=== PATIENT | male | born 1945 | race Caucasian/White ===

== ENCOUNTER 2016-07-09 14:39 | Observation (INO) | payer OTHER ==
[2016-07-09] MEDS ORDERED: SODIUM CHLORIDE 500 ML IV STA (15:40)
--- NOTE | 2016-07-09 15:46 | PDOC ---
History of Present Illness - General History Source: Patient, Family - History of Present Illness Timing/Duration: other Associated Symptoms: reports: cough, weakness. denies: chest pain, fever/chills , headaches, nausea/vomiting, shortness of breath, syncope <JeremyRebecca - Last Filed: 07/09/16 18:42> <Darshana Monson - Last Filed: 07/12/16 11:07> - General Chief Complaint: Shortness of Breath Stated Complaint: DIFFICULTY BREATHING/FAINTED Time Seen by Provider: 07/09/16 15:08 Past History - Past Medical History Other medical history: GLAUCOMA - Psycho/Social/Smoking Cessation Hx Anxiety: No Suicidal Ideation: No Smoking History: Former smoker Have you smoked in the past 12 months: No Number of Cigarettes Smoked Daily: 7 Information on smoking cessation initiated: No 'Breaking Loose' booklet given: 06/29/13 Hx Alcohol Use: No Drug/Substance Use Hx: No Substance Use Type: None <LeesvilleRebecca - Last Filed: 07/09/16 18:42> <Darshana Monson - Last Filed: 07/12/16 11:07> - Past Medical History Allergies/Adverse Reactions: Allergies Allergy/AdvReac Type Severity Reaction Status Date / Time No Known Allergies Allergy Verified 07/09/16 14:46 Home Medications: Ambulatory Orders Latanoprost 0.005% Eye Drops [Xalatan 0.005% Eye Drops -] 1 drop OU HS #0 drops 07/02/13 Review of Systems - Review of Systems Constitutional: No: Chills, Fever Respiratory: Yes: Cough. No: Shortness of Breath, Wheezing Cardiac (ROS): No: Chest Pain, Lightheadedness, Palpitations ABD/GI: No: Diarrhea, Nausea, Vomiting : No: Dysuria <JeremyKaylinTutu - Last Filed: 07/09/16 18:42> *Physical Exam - Vital Signs Last Vital Signs Temp Pulse Resp BP Pulse Ox 98.7 F 110 H 18 172/100 97 07/09/16 14:42 07/09/16 14:42 07/09/16 14:42 07/09/16 14:42 07/09/16 14:42 - Physical Exam General Appearance: Yes: Appropriately Dressed. No: Apparent Distress HEENT: positive: Normal Voice. negative: Scleral Icterus (R), Scleral Icterus ( L) Neck: positive: Supple Respiratory/Chest: positive: Lungs Clear, Normal Breath Sounds. negative: Respiratory Distress Cardiovascular: positive: Regular Rate, S1, S2 Gastrointestinal/Abdominal: positive: Soft. negative: Tender Integumentary: positive: Dry, Warm Neurologic: positive: Fully Oriented, Alert, Normal Mood/Affect, Motor Strength 5/5, Finger to Nose. negative: Facial Droop, Sensory Deficit (no nystagmus, Karthikeyan intact, no drift, no ataxia), Confused, Disoriented <Rebecca Luna - Last Filed: 07/09/16 18:42> - Vital Signs Last Vital Signs Temp Pulse Resp BP Pulse Ox 99.7 F H 95 H 16 123/54 98 07/10/16 05:59 07/10/16 09:00 07/10/16 09:00 07/10/16 09:00 07/10/16 09:00 <Darshana Monson - Last Filed: 07/12/16 11:07> ED Treatment Course - LABORATORY CBC & Chemistry Diagram: 07/09/16 16:25 07/09/16 16:25 - RADIOLOGY Radiology Studies Ordered: Category Date Time Status CHEST X-RAY PORTABLE* [RAD] Stat Radiology 07/09/16 15:11 Ordered <JeremyRebecca - Last Filed: 07/09/16 18:42> - LABORATORY CBC & Chemistry Diagram: 07/10/16 07:20 07/10/16 07:20 - ADDITIONAL ORDERS Additional order review: 07/09/16 16:32 Influenza Types A,B Antigen (CAROL) - Final Nasopharyngeal Swab - Final 07/09/16 16:25 RBC 4.65 MCV 86.4 MCHC 33.4 RDW 13.9 MPV 6.9 L D Neutrophils % 85.2 H Lymphocytes % 5.5 L D Monocytes % 8.5 Eosinophils % 0.3 D Basophils % 0.5 - Medications Given in the ED: ED Medications Discontinued Medications Generic Name Dose Route Start Last Admin Trade Name Freq PRN Reason Stop Dose Admin Sodium Chloride 500 mls @ 1,000 mls/hr 07/09/16 15:40 07/09/16 16:28 Normal Saline - IV 07/09/16 16:09 1,000 mls/hr ASDIR STA Administration Sodium Chloride 1,000 mls @ 75 mls/hr 07/09/16 21:30 07/09/16 21:46 Normal Saline - IV 75 mls/hr ASDIR GILBERTO Administration <Darshana Monson - Last Filed: 07/12/16 11:07> Medical Decision Making - Medical Decision Making 07/09/16 15:41 71 yo M, former smoker, ?COPD, BIB daughter for b/l LE weakness w/ near fall today. Pt report having " a cold" for the past several days and this afternoon while standing, states his legs felt profoundly weak causing him to fall towards the ground but was caught by family member. No dizziness or CP prior to episode. States his legs continue to feel weak. No VILLARREAL, slurred speech, visual changes or focal weakness. +cough, no sob, wheezing, abd pain, diarrhea, n/v/f/ c. See exam URI w/ weakness Possibly viral syndrome Tachy and hypertensive in ED w/ unremarkable exam otherwise -labs including influenza -IVF -reassess 07/09/16 15:46 07/09/16 17:22 TWI in leads V5-V6, new compared to EKG 06/2013. Trop pending. Doubt sxs cardiac in nature as pt has no cardiac or resp sxs 07/09/16 18:37 Labs and cxr unremarkable. Upon reassessment, patient continues to complain of profound bilateral lower extremity weakness when attempts to ambulate in ED. Strength, however, intact on exam and non-focal. Unclear etiology of sxs but unable to discharge at this time. Will discuss w/ hospitalist and m/l admit to obs. 07/09/16 18:39 <Rebecca Luna - Last Filed: 07/09/16 18:42> *DC/Admit/Observation/Transfer <Rebecca Luna - Last Filed: 07/09/16 18:42> - Attestations Physician Attestion: I reviewed the case with the mid-level practitioner and agree with the mid- level practitioner's assessment, diagnosis and disposition. <Darshana Monson - Last Filed: 07/12/16 11:07> Diagnosis at time of Disposition: Lower extremity weakness Qualifiers: Laterality: bilateral Qualified Code(s): R29.898 - Other symptoms and signs involving the musculoskeletal system - Discharge Dispostion Disposition: HOME Condition at time of disposition: Improved
[2016-07-09 16:33] LABS: BASOPHIL 0.5 % (0-2.0); EOSINOPHIL 0.3 % (0-4.5); MCH 28.9 pg (25.7-33.7); MCHC 33.4 g/dl (32.0-35.9); MEAN CELL VOLUME 86.4 fl (80-96); MEAN PLT VOLUME 6.9 fl (7.5-11.1); NEUTROPHILS 85.2 % (42.8-82.8); PLATELET COUNT 212 K/MM3 (134-434); RDW 13.9 % (11.9-15.9); WHITE BLOOD COUNT 11.2 K/mm3 (4.0-10.0)
[2016-07-09 16:43] LABS: URINE APPEARANCE CLEAR; URINE BILIRUBIN NEGATIVE (NEGATIVE); URINE BLOOD NEGATIVE (NEGATIVE); URINE COLOR LTYELLOW; URINE GLUCOSE (UA) NEGATIVE (NEGATIVE); URINE KETONE NEGATIVE (NEGATIVE); URINE LEUK ESTERASE NEGATIVE (NEGATIVE); URINE NITRITE NEGATIVE (NEGATIVE); URINE PROTEIN NEGATIVE (NEGATIVE); URINE UROBILINOGEN NEGATIVE E.U./dl (0.2-1.0)
[2016-07-09 17:25] LABS: ALBUMIN 3.7 g/dl (3.4-5.0); ANION GAP 11 (8-16); BILIRUBIN,TOTAL 0.7 mg/dL (0.2-1.0); CALCIUM 8.8 mg/dL (8.5-10.1); CO2 25 mmol/L (21-32); COCKROFT - GAULT 59.77; CREATININE 1.2 mg/dL (0.7-1.3); GLUCOSE,RANDOM 114 mg/dL (74-106); SGOT/AST 97 U/L (15-37); SGPT/ALT 78 U/L (12-78); TOT PROT 7.5 g/dl (6.4-8.2)
[2016-07-09 17:27] LABS: ALK PHOS 128 U/L (45-117); TROPONIN I < 0.02 ng/ml (0.00-0.05)
--- NOTE | 2016-07-09 19:23 | PDOC ---
*Physical Exam - Vital Signs Last Vital Signs Temp Pulse Resp BP Pulse Ox 98.7 F 87 17 132/58 96 07/09/16 14:42 07/09/16 17:39 07/09/16 17:39 07/09/16 17:39 07/09/16 17:39 ED Treatment Course - LABORATORY CBC & Chemistry Diagram: 07/09/16 16:25 07/09/16 16:25 - ADDITIONAL ORDERS Additional order review: Laboratory Results 07/09/16 07/09/16 16:32 16:25 Sodium 137 Potassium 5.2 H D Chloride 101 Carbon Dioxide 25 Anion Gap 11 BUN 18 D Creatinine 1.2 D Creat Clearance w eGFR 59.68 Random Glucose 114 H D Calcium 8.8 Total Bilirubin 0.7 D AST 97 H D ALT 78 D Alkaline Phosphatase 128 H D Creatine Kinase 135 Troponin I < 0.02 Total Protein 7.5 D Albumin 3.7 Urine Color Ltyellow Urine Appearance Clear Urine pH 7.0 Ur Specific [place] 1.012 Urine Protein Negative Urine Glucose (UA) Negative Urine Ketones Negative Urine Blood Negative Urine Nitrite Negative Urine Bilirubin Negative Urine Urobilinogen Negative Ur Leukocyte Esterase Negative 07/09/16 16:32 Influenza Types A,B Antigen (CAROL) - Final Nasopharyngeal Swab - Final 07/09/16 16:25 RBC 4.65 MCV 86.4 MCHC 33.4 RDW 13.9 MPV 6.9 L D Neutrophils % 85.2 H Lymphocytes % 5.5 L D Monocytes % 8.5 Eosinophils % 0.3 D Basophils % 0.5 - Medications Given in the ED: ED Medications Discontinued Medications Generic Name Dose Route Start Last Admin Trade Name Remingtonq PRN Reason Stop Dose Admin Sodium Chloride 500 mls @ 1,000 mls/hr 07/09/16 15:40 07/09/16 16:28 Normal Saline - IV 07/09/16 16:09 1,000 mls/hr ASDIR STA Administration *DC/Admit/Observation/Transfer Diagnosis at time of Disposition: Lower extremity weakness Qualifiers: Laterality: bilateral Qualified Code(s): R29.898 - Other symptoms and signs involving the musculoskeletal system - Discharge Dispostion Condition at time of disposition: Stable Admit: Yes
--- NOTE | 2016-07-09 19:39 | PN ---
<Carlton Daigle - Last Filed: 07/09/16 19:38> Teaching Attending Note Name of Resident: Samira Painter ATTENDING PHYSICIAN STATEMENT I saw and evaluated the patient. I reviewed the resident's note and discussed the case with the resident. I agree with the resident's findings and plan as documented. SUBJECTIVE: OBJECTIVE: ASSESSMENT AND PLAN: <JuiceeanAlban - Last Filed: 07/09/16 21:18> Teaching Attending Note ATTENDING PHYSICIAN STATEMENT I saw and evaluated the patient. I reviewed the resident's note and discussed the case with the resident. I agree with the resident's findings and plan as documented. Imaging data and chart reviewed. SUBJECTIVE: 71 year old male, former smoker, COPD, BIB daughter for bilateral lower extremity weakness with near fall at 3 pm today. Patient reported and stated this afternoon his leg felt profoundly weak causing him to have difficulty walking. The patient denied any chest pressure or dizziness prior to episode. The patient reported subjective cold for several days with associated cough. He denied headache, slurred speech, visual changes, or focal weaknesses. He denied shortness of breath, wheezing, abdominal pain, diarrhea, nausea, vomiting , fever, and chills. OBJECTIVE: Vital Signs: Last Vital Signs Temp Pulse Resp BP Pulse Ox 98.7 F 87 17 132/58 96 07/09/16 14:42 07/09/16 17:39 07/09/16 17:39 07/09/16 17:39 07/09/16 17:39 Physical Exam: GENERAL: (+) Awake, alert, and fully oriented, in no acute distress. Missing teeth HEENT: Atraumatic. Dry mucosa. Normocephalic. No sinus tenderness. No LAD. NECK: (+) No JVD. No thyroid masses. Supple. Collapsed neck veins LUNGS: Clear to auscultation bilaterally. No wheezing, rhonchi or rales. HEART: Regular rate and rhythm, normal S1 and S2, no murmurs, rubs or gallops, peripheral pulses normal and equal bilaterally. ABDOMEN: Soft, nontender, normoactive bowel sounds. No guarding, no rebound. No Masses. MUSCULOSKELETAL: No joint tenderness or erythema. No muscle tenderness. Normal muscle bulk and tone. EXTREMITIES: (+) Normal inspection, No edema. No clubbing or cyanosis. Moves all extremities. webbed feet. NEUROLOGICAL: (+) Normal speech, no focal sensorimotor deficits. Lower extremities motor 5/5 bilaterally, patella reflexes 2+ bilaterally, sensation grossly intact, babinski negative bilaterally SKIN: (+) Warm, dry, poor turgor, no rashes or lesions noted. Labs: CBCD WBC 11.2 K/mm3 (4.0-10.0) H D 07/09/16 16:25 RBC 4.65 M/mm3 (4.00-5.60) 07/09/16 16:25 Hgb 13.4 GM/dL (11.7-16.9) 07/09/16 16:25 Hct 40.2 % (35.4-49) 07/09/16 16:25 MCV 86.4 fl (80-96) 07/09/16 16:25 MCHC 33.4 g/dl (32.0-35.9) 07/09/16 16:25 RDW 13.9 % (11.9-15.9) 07/09/16 16:25 Plt Count 212 K/MM3 (134-434) D 07/09/16 16:25 MPV 6.9 fl (7.5-11.1) L D 07/09/16 16:25 CMP Sodium 137 mmol/L (136-145) 07/09/16 16:25 Potassium 5.2 mmol/L (3.5-5.1) H D 07/09/16 16:25 Chloride 101 mmol/L (98-107) 07/09/16 16:25 Carbon Dioxide 25 mmol/L (21-32) 07/09/16 16:25 Anion Gap 11 (8-16) 07/09/16 16:25 BUN 18 mg/dL (7-18) D 07/09/16 16:25 Creatinine 1.2 mg/dL (0.7-1.3) D 07/09/16 16:25 Creat Clearance w eGFR 59.68 (>60) 07/09/16 16:25 Calcium 8.8 mg/dL (8.5-10.1) 07/09/16 16:25 Total Bilirubin 0.7 mg/dL (0.2-1.0) D 07/09/16 16:25 AST 97 U/L (15-37) H D 07/09/16 16:25 ALT 78 U/L (12-78) D 07/09/16 16:25 Alkaline Phosphatase 128 U/L (45-117) H D 07/09/16 16:25 Total Protein 7.5 g/dl (6.4-8.2) D 07/09/16 16:25 Albumin 3.7 g/dl (3.4-5.0) 07/09/16 16:25 Imaging: ECG Impression: Sinus rhythm. No acute ST or T wave changes. ASSESSMENT AND PLAN: 1. Bilateral leg weakness maybe secondary to hyperkalemia vs dehydration. - Observe - Fall precautions - AM gait assessment - Electrolyte correction - IVF hydration 2. RODO possibly secondary to dehydration. - Urine electrolytes - Renal sonogram - IVF hydration - Avoid nephrotoxic medications 3. Diet -2 g sodium diet 4. DVT PPX low risk for DVT -SCDs Admit to observation Documentation prepared by Alban Borges, acting as biomedical repair technician for Dr. Carlton Daigle MD.
--- NOTE | 2016-07-09 20:04 | HP ---
CHIEF COMPLAINT:lower extremity weakness, shortness of breath PCP: none HISTORY OF PRESENT ILLNESS: 71 yr old man with hx of enlarged prostate, glaucoma, former smoker presents after one episode of difficulty breathing and b/l lower extremity weakness this morning. At 3pm he was walking around his room, making his bed when he suddenly felt like he "couldn't get enough air" and was unable to stand due to leg weakness. He called out for his daughter who caught him before he hit the floor. Difficulty breathing, was not extertional, he felt like he had to breath through his mouth and at the time couldn't speak in full sentences. He normally does not have shortness of breath, walks 1-3miles daily without difficulty. Denies LOC, seizure-like activity, chest pain, lightheadedness, dizziness, palpitations, changes in vision, fever, lower extremity edema, history of fall, head trauma, bladder/bowel incontinence, neck stiffness, paresthesias. He has had a cold with non-productive cough for past week, this morning he woke up with his throat hurting. Daughter had given him dayquil x2 to help with symptoms, pt says uri symptoms are improving. Has not traveled outside of [place] in a "very long time," does not have a garden, denies being in a wooded area/tick bites, rashes. ER course was notable for: (1) EKG (2) K+ 5.6 (3) CXY Recent Travel: none PAST MEDICAL HISTORY: glaucoma Congenital Syndactyly b/l hands and feet PAST SURGICAL HISTORY: laser therapy for prostate 2003, several b/l hand surgery as infant to separate fingers Social History: independent with ADLs, lives with adult son and daughter Smoking: quit 4 yrs ago, smoked for 50 yrs 1/2pk/per day Alcohol:never Drugs: never Family History: mother had "heart condition" was on digoxin and nitroglycerin for many years, ID age 80 Allergies No Known Allergies Allergy (Verified 07/09/16 14:46) HOME MEDICATIONS: Home Medications Medication Instructions Recorded Latanoprost 0.005% Eye Drops 1 drop OU HS #0 drops 07/02/13 [Xalatan 0.005% Eye Drops -] REVIEW OF SYSTEMS CONSTITUTIONAL: Absent: fever, chills, diaphoresis, generalized weakness, malaise, loss of appetite, weight change HEENT: Present: throat pain, Absent: rhinorrhea, nasal congestion, throat swelling, difficulty swallowing, mouth swelling, ear pain, eye pain, visual changes CARDIOVASCULAR: Absent: chest pain, syncope, palpitations, irregular heart rate, lightheadedness , peripheral edema RESPIRATORY: Present:cough, Absent: shortness of breath, dyspnea with exertion, orthopnea, wheezing, stridor, hemoptysis GASTROINTESTINAL: Absent: abdominal pain, abdominal distension, nausea, vomiting, diarrhea, constipation, melena, hematochezia GENITOURINARY: Absent: dysuria, frequency, urgency, hesitancy, hematuria, flank pain, genital pain MUSCULOSKELETAL: Absent: myalgia, arthralgia, joint swelling, back pain, neck pain SKIN: Absent: rash, itching, pallor HEMATOLOGIC/IMMUNOLOGIC: Absent: easy bleeding, easy bruising, lymphadenopathy, frequent infections ENDOCRINE: Absent: unexplained weight gain, unexplained weight loss, heat intolerance, cold intolerance NEUROLOGIC: Present: unsteady gait Absent: headache, focal weakness or paresthesias, dizziness, seizure, mental status changes, bladder or bowel incontinence PSYCHIATRIC: Absent: anxiety, depression PHYSICAL EXAMINATION Vital Signs - 24 hr 07/09/16 07/09/16 14:42 17:39 Temperature 98.7 F Pulse Rate 110 H Pulse Rate [ 87 Left] Respiratory 18 17 Rate Blood Pressure 172/100 Blood Pressure 132/58 [Arm] O2 Sat by Pulse 97 96 Oximetry (%) GENERAL: thin, elderly man, Awake, alert, and fully oriented, in no acute distress. HEAD: Normal with no signs of trauma. EYES: Pupils equal, round and reactive to light, extraocular movements intact, sclera anicteric, conjunctiva clear. No lid lag. EARS, NOSE, THROAT: Ears normal, nares patent, oropharynx clear without exudates /erythema/lesions. dry mucous membranes. missing dentition. NECK: Normal range of motion, supple without lymphadenopathy, JVD, or masses. no carotid bruits LUNGS: Breath sounds equal, clear to auscultation bilaterally. No wheezes, and no crackles. No accessory muscle use. HEART: Regular rate and rhythm, normal S1 and S2 without murmur, rub or gallop. ABDOMEN: Soft, nontender, not distended, normoactive bowel sounds, no guarding, no rebound, no masses. MUSCULOSKELETAL: Normal range of motion at all joints. No tenderness. No CVA tenderness. congenital deformity of hands s/p surgery for syndactyly. b/l toes 2 -4 fused with overlying skin. UPPER EXTREMITIES: 2+ pulses, warm, well-perfused. No cyanosis. No clubbing. No peripheral edema. LOWER EXTREMITIES: 2+ pulses, warm, well-perfused. No calf tenderness. No peripheral edema. NEUROLOGICAL: Cranial nerves II-XII intact. Normal speech. Normal gait. facial symmetry. strength at shoulder/biceps/triceps/hand distribution collection operator 5/5, extension&flexion strength at hips/knees/ankle. gait stable, [id number] b/l wnl. knee jerk, brachioradialis reflexes intact. no dysdiadochokinesis PSYCHIATRIC: Cooperative. Good eye contact. Appropriate mood and affect. Laboratory Results - last 24 hr 07/09/16 07/09/16 07/09/16 16:25 16:25 16:32 WBC 11.2 H D RBC 4.65 Hgb 13.4 Hct 40.2 MCV 86.4 MCHC 33.4 RDW 13.9 Plt Count 212 D MPV 6.9 L D Neutrophils % 85.2 H Lymphocytes % 5.5 L D Monocytes % 8.5 Eosinophils % 0.3 D Basophils % 0.5 Sodium 137 Potassium 5.2 H D Chloride 101 Carbon Dioxide 25 Anion Gap 11 BUN 18 D Creatinine 1.2 D Creat Clearance w eGFR 59.68 Random Glucose 114 H D Calcium 8.8 Total Bilirubin 0.7 D AST 97 H D ALT 78 D Alkaline Phosphatase 128 H D Creatine Kinase 135 Troponin I < 0.02 Total Protein 7.5 D Albumin 3.7 Urine Color Ltyellow Urine Appearance Clear Urine pH 7.0 Ur Specific [place] 1.012 Urine Protein Negative Urine Glucose (UA) Negative Urine Ketones Negative Urine Blood Negative Urine Nitrite Negative Urine Bilirubin Negative Urine Urobilinogen Negative Ur Leukocyte Esterase Negative ASSESSMENT/PLAN: 71 yr old man with glaucoma, former smoker, presents with sudden onset of b/l le weakness and labored breathing placed on observation for continued subjective lower extremity weakness. - difficulty breathing is not worsening, saturing 100% on RA with CTAB, no hx of tick exposure, neurologically intact - low suspicion for lyme or guillian barre. - EKG without acute ischemic changes, NSR, no chest pain, trop x1 negative, heart score 3, KRISHNA 1, low suspicion for arrhythmia/ID. Stress test in 2014 showed fixed perfusion defect in inferior apical c/w old ID, dilated LV, severe global hypokinesis, EF of 30% #Subjective b/l le weakness - no focal neurological deficits, low suspicion for CVA/neurological cause. - likely secondary to dehydration vs hyperkalemia causing muscle weakness: NS IVF @75ml/hr, repeat labs in the morning - physical therapy eval in the morning if symptoms continue, fall precautions. #RODO (baseline Cr 0.9) currently 1.2, gfr 63.4 - likely prerenal, poor po intake/insensible losses due to recent URI illness - urine electrolytes and renal sonogram for further evaluation - history of bilateral renal cysts - CT scan 2013 - IVF #Elevated blood pressure - repeat BP improved with IVF - referral to PCP for outpatient follow-up #Glaucoma - latanoprost 1 drop OU HS #Diet: sodium controlled #DVT - anticipate short stay, encourage ambulation, SCD's #Dispo: reasses in the morning, if remains asymptomatic, VSS, benign neuro exam/ physical therapy eval can be d/c'ed with referral to PCP for outpatient follow- up Visit type - Emergency Visit Emergency Visit: Yes ED Registration Date: 07/09/16 Care time: The patient presented to the Emergency Department on the above date and was hospitalized for further evaluation of their emergent condition. - New Patient This patient is new to me today: Yes Date on this admission: 07/09/16 - Critical Care Critical Care patient: No
[2016-07-09] MEDS ORDERED: SODIUM CHLORIDE 1,000 ML IV SCH (21:30)
[2016-07-10 04:51] VITALS: BMI 20.7
[2016-07-10 06:00] VITALS: TEMP 99.7
[2016-07-10 08:23] LABS: BASOPHIL 0.7 % (0-2.0); EOSINOPHIL 0.5 % (0-4.5); MCH 29.4 pg (25.7-33.7); MCHC 34.1 g/dl (32.0-35.9); MEAN CELL VOLUME 86.2 fl (80-96); MEAN PLT VOLUME 7.2 fl (7.5-11.1); NEUTROPHILS 76.9 % (42.8-82.8); PLATELET COUNT 154 K/MM3 (134-434); RDW 13.7 % (11.9-15.9); WHITE BLOOD COUNT 5.1 K/mm3 (4.0-10.0)
[2016-07-10 08:58] LABS: CALCIUM 7.7 mg/dL (8.5-10.1)
[2016-07-10 09:01] LABS: COCKROFT - GAULT 78.24; CREATININE 0.9 mg/dL (0.7-1.3)
--- NOTE | 2016-07-10 11:30 | DS ---
Physical Exam: SUBJECTIVE: Patient seen and examined OBJECTIVE: Vital Signs Period Temp Pulse Resp BP Sys/Edwards Pulse Ox Last 24 Hr 98.4 F-99.7 F 84-98 16-20 122-136/50-69 98-100 PHYSICAL EXAM GENERAL: The patient is awake, alert, and fully oriented, in no acute distress. HEAD: Normal with no signs of trauma. EYES: PERRL, extraocular movements intact, sclera anicteric, conjunctiva clear. ENT: Ears normal, nares patent, oropharynx clear without exudates, moist mucous membranes. NECK: Trachea midline, full range of motion, supple. LUNGS: Breath sounds equal, clear to auscultation bilaterally, no wheezes, no crackles, no accessory muscle use. HEART: Regular rate and rhythm, S1, S2 without murmur, rub or gallop. ABDOMEN: Soft, nontender, nondistended, normoactive bowel sounds, no guarding, no rebound, no hepatosplenomegaly, no masses. EXTREMITIES: 2+ pulses, warm, well-perfused, no edema. NEUROLOGICAL: Cranial nerves II through XII grossly intact. Normal speech, gait not observed. PSYCH: Normal mood, normal affect. SKIN: Warm, dry, normal turgor, no rashes or lesions noted. LABS Laboratory Results - last 24 hr 07/09/16 07/09/16 07/10/16 23:55 23:55 07:20 WBC 5.1 D RBC 3.90 L Hgb 11.5 L D Hct 33.6 L D MCV 86.2 MCHC 34.1 RDW 13.7 Plt Count 154 D MPV 7.2 L Neutrophils % 76.9 Lymphocytes % 11.2 D Monocytes % 10.7 H Eosinophils % 0.5 Basophils % 0.7 Sodium Potassium Chloride Carbon Dioxide Anion Gap BUN Creatinine Random Glucose Calcium Urine Osmolality 345 Ur Random Sodium 77 Ur Random Potassium 26.4 Ur Random Chloride 82 Urine Creatinine 07/10/16 07/10/16 07:20 08:30 WBC RBC Hgb Hct MCV MCHC RDW Plt Count MPV Neutrophils % Lymphocytes % Monocytes % Eosinophils % Basophils % Sodium 139 Potassium 3.7 D Chloride 106 Carbon Dioxide 24 Anion Gap 9 BUN 14 D Creatinine 0.9 D Random Glucose 83 D Calcium 7.7 L Urine Osmolality Ur Random Sodium Ur Random Potassium Ur Random Chloride Urine Creatinine 53.4 HOSPITAL COURSE: Date of Admission:07/09/16 Date of Discharge: 07/10/16 Minutes to complete discharge: 30 Discharge Summary Reason For Visit: DIFFICULTY BREATHING/FAINTED Current Active Problems Dehydration (Acute) Hyperkalemia (Acute) Lower extremity weakness (Acute) Condition: Improved - Instructions Diet, Activity, Other Instructions: You may resume a regular diet and activity as tolerated. Please schedule an appointment with Dr. Casper for follow-up this week. Referrals: Jaciel Casper MD [Staff Physician] - Disposition: HOME - Home Medications Comprehensive Discharge Medication List: Ambulatory Orders Latanoprost 0.005% Eye Drops [Xalatan 0.005% Eye Drops -] 1 drop OU HS #0 drops 07/02/13 Problem List - Problems (1) Dehydration Code(s): E86.0 - DEHYDRATION (2) Hyperkalemia Code(s): E87.5 - HYPERKALEMIA (3) Lower extremity weakness Code(s): R29.898 - OTH SYMPTOMS AND SIGNS INVOLVING THE MUSCULOSKELETAL SYSTEM Qualifiers: Laterality: bilateral Qualified Code(s): R29.898 - Other symptoms and signs involving the musculoskeletal system This patient is new to me today: Yes Date on this admission: 07/10/16 Emergency Visit: Yes ED Registration Date: 07/09/16 Care time: The patient presented to the Emergency Department on the above date and was hospitalized for further evaluation of their emergent condition. Critical Care patient: No - Discharge Referral Referred to [facility] Yes Physician Referral: Jaciel Harris MD ([facility])
[2016-07-10 12:00] VITALS: BP 123/54; PULSE 95
--- NOTE | 2016-07-10 14:25 | EKG ---
Test Reason : Blood Pressure : / mmHG Vent. Rate : 087 BPM Atrial Rate : 087 BPM P-R Int : 178 ms QRS Dur : 084 ms QT Int : 362 ms P-R-T Axes : 065 -14 067 degrees QTc Int : 435 ms SINUS RHYTHM WITH PREMATURE SUPRAVENTRICULAR COMPLEXES POSSIBLE LEFT ATRIAL ENLARGEMENT NONSPECIFIC T WAVE ABNORMALITY ABNORMAL ECG WHEN COMPARED WITH ECG OF 29-JUN-2013 19:42, NONSPECIFIC T WAVE ABNORMALITY NOW EVIDENT IN LATERAL LEADS CLINICAL CORRELATION IS RECOMMENDED Confirmed by SINCERE MCCURDY, TALIA ([id number]) on 07/10/2016 2:24:53 PM Referred By: Confirmed By:TLAIA POST MD
[2016-07-10] MEDS ORDERED: LATANOPROST 0.005% OPHTH SOLN 2.5ML BOTTLE OU SCH (22:00)
== END 2016-07-10 13:30 | disposition home or self-care (01) ==
LOC: JER 14:39 → UNDOADMOB 19:23 → JERBED 19:23 → INTOOBSV 19:23 → JERBED 21:24 → UNDOADMIN 22:20 → JERBED 07-10 02:53 → J6S 07-10 02:53
PROVIDERS: ADMIT Internal Medicine; ATTEND Internal Medicine
PROC: 3E0337Z Introduction of Electrolytic and Water Balance Substance into Peripheral Vein, Percutaneous Approach (ICD-10-PCS; principal; 2016-07-09)
DX: E86.0 Dehydration (principal); E87.5 Hyperkalemia; R03.0 Elevated blood-pressure reading, without diagnosis of hypertension; N17.9 Acute kidney failure, unspecified; H40.9 Unspecified glaucoma; J44.9 Chronic obstructive pulmonary disease, unspecified; N40.0 Benign prostatic hyperplasia without lower urinary tract symptoms; Z87.891 Personal history of nicotine dependence
CPT/HCPCS: 36415; 71010-TC; 76775-TC; 80048; 80053; 81003; 82436; 82550; 82570; 83935; 84133; 84300; 84484; 85025; 87254; 87804; 93005; 93010; 99285-25; G0378

== ENCOUNTER 2016-07-21 13:45 | Emergency (ER) | payer OTHER ==
[2016-07-21 13:50] VITALS: BMI 21.0
--- NOTE | 2016-07-21 15:53 | PDOC ---
History of Present Illness - General Chief Complaint: Respiratory Stated Complaint: COUGH Time Seen by Provider: 07/21/16 15:17 History Source: Patient Exam Limitations: No Limitations - History of Present Illness Initial Comments: 07/21/16 15:54 71y M former smoker, presents with complaint of cough. Pt states he had a cough for the past month, was seen in the ED about 2 weeks ago - pt states he has still been coughing. Pt states coughing is typically worse in the AM, and usually in the day he feels fine, there is no associated nasal congestion, cough is nonprductive, not associated with cp, torres, leg swelling, orthopnea, hemoptysis. Pt states he came today as the cough has been persistent, although he admits the coughing is slightly improved cmpared to 2 weeks ago. Past History - Past Medical History Allergies/Adverse Reactions: Allergies Allergy/AdvReac Type Severity Reaction Status Date / Time No Known Allergies Allergy Verified 07/21/16 13:47 Home Medications: Ambulatory Orders Levofloxacin [Levaquin -] 500 mg PO DAILY #7 tablet 07/21/16 - Psycho/Social/Smoking Cessation Hx Anxiety: No Suicidal Ideation: No Smoking History: Former smoker Have you smoked in the past 12 months: No Number of Cigarettes Smoked Daily: 7 If you are a former smoker, when did you quit?: 3 years ago Information on smoking cessation initiated: No 'Breaking Loose' booklet given: 06/29/13 Hx Alcohol Use: No Drug/Substance Use Hx: No Substance Use Type: None Review of Systems - Review of Systems Able to Perform ROS?: Yes Comments:: 07/21/16 16:00 Constitutional - no reported Fever, Chills, weakness, HEENT: no reported vision changes, sore throat Respiratory: +cough, no reported sob, hemoptysis Cardiac: no reported chest pain, palpitations, light headedness, leg swelling Abd/GI: no reported abd pain, nausea, vomiting, blood per rectum, melena, diarrhea : no reported dysuria, frequency, discharge Musculskelatal - no reported back pain, joint swelling skin - no reported bruising, erythema, rash neurological: no reported headache, numbness, focal weakness, tingling, ataxia, weakness hematologic: no reported anemia, easy bruising, easy bleeding *Physical Exam - Vital Signs Last Vital Signs Temp Pulse Resp BP Pulse Ox 98 F 99 H 18 175/75 97 07/21/16 13:48 07/21/16 13:48 07/21/16 13:48 07/21/16 13:48 07/21/16 13:48 - Physical Exam Comments: 07/21/16 16:00 GENERAL: The patient is awake, alert, and fully oriented, Nontoxic - in no acute distress. HEAD: Normocephalic, atraumatic. EYES: extraocular movements intact, sclera anicteric, conjunctiva clear. ENT: Normal voice, Moist mucous membranes. NECK: Normal range of motion, supple LUNGS: Breath sounds equal, clear to auscultation bilaterally. No wheezes, no rhonchi, no rales. HEART: Regular rate and rhythm, normal S1 and S2 without murmur, rub or gallop. ABDOMEN: Soft, nontender, normoactive bowel sounds. No guarding, no rebound. . No CVA tenderness EXTREMITIES: Normal range of motion, no edema. no calf tenderness, neg homans test NEUROLOGICAL: No facial assymetry, Normal speech, PSYCH: Normal mood, normal affect. SKIN: Warm, Dry, normal turgor, Heart Score/ECG Review - ECG Impressions Comment:: 07/21/16 16:23 Twelve-lead EKG was performed and reviewed by me. There is normal sinus rhythm with a normal rate. Rate of 80 PVCs present The axis is normal. QTc interval of [address] or T wave abnormalities suggestive of acute ischemia ED Treatment Course - LABORATORY CBC & Chemistry Diagram: 07/21/16 16:00 07/21/16 16:00 Medical Decision Making - Medical Decision Making 07/21/16 16:00 suspect residual cough from uri will ck xray to r/o pna will ck basic labs will reassess 07/21/16 19:17 pts cxr shows biapical pleural thickening, possible pneumonic infiltrates in RUL - CT was obtained that showed change suggestive of COPD, there was also interval patchy airspace disease in upper lobes c/w with pna will give pt abx, will dc the pt wout outpatientmanagement and fu will give pt a copy of blood work and CT will start pt on abx and will have pt fu with pmd return precuations were discussed I discussed the physical exam findings, ancillary test results and final diagnoses with the patient. I answered all of the patient's questions. The patient was satisfied with the care received and felt comfortable with the discharge plan and treatment plan. The patient will call their primary care physician within 24 hours to arrange follow-up and will return to the Emergency Department with any new, persistent or worsening symptoms. *DC/Admit/Observation/Transfer Diagnosis at time of Disposition: Pneumonia Qualifiers: Pneumonia type: due to unspecified organism Laterality: right Lung location: upper lobe of lung Qualified Code(s): J18.1 - Lobar pneumonia, unspecified organism - Discharge Dispostion Disposition: HOME Condition at time of disposition: Improved Admit: No - Prescriptions Prescriptions: Levofloxacin [Levaquin -] 500 mg PO DAILY #7 tablet - Referrals Referrals: Natasha Sigala MD [Staff Physician] - - Patient Instructions Printed Discharge Instructions: DI for Pneumonia -- Adult Additional Instructions: Return to the emergency department immediately with ANY new, persistent or worsening symptoms including including any high fevers/chills, shortness of breath, chest pain, shortness of breath when you are walking around or any other concerns. Your CT showed some changes, you shouuld have a repeat CT in 2 weeks to reeavluate these changes. A copy of your blood work and imaging results are included, please review these with your doctor. You MUST call and follow up with your doctor tomorrow for further evaluation of your symptoms. Results were discussed with you. Please make sure your doctor reviews the results of your emergency evaluation.
[2016-07-21 16:23] LABS: BASOPHIL 0.9 % (0-2.0); EOSINOPHIL 2.2 % (0-4.5); MCH 28.5 pg (25.7-33.7); MCHC 32.7 g/dl (32.0-35.9); MEAN CELL VOLUME 87.2 fl (80-96); MEAN PLT VOLUME 6.4 fl (7.5-11.1); NEUTROPHILS 75.3 % (42.8-82.8); PLATELET COUNT 371 K/MM3 (134-434); WHITE BLOOD COUNT 10.3 K/mm3 (4.0-10.0)
[2016-07-21 17:01] LABS: ALBUMIN 3.4 g/dl (3.4-5.0); ANION GAP 10 (8-16); BILIRUBIN,TOTAL 0.5 mg/dL (0.2-1.0); CALCIUM 9.1 mg/dL (8.5-10.1); CO2 27 mmol/L (21-32); COCKROFT - GAULT 71.28; GLUCOSE,RANDOM 90 mg/dL (74-106); SGOT/AST 42 U/L (15-37); SGPT/ALT 41 U/L (12-78)
[2016-07-21 17:03] LABS: ALK PHOS 138 U/L (45-117); TOT PROT 7.4 g/dl (6.4-8.2)
[2016-07-21] MEDS ORDERED: LEVOFLOXACIN 500 MG TABLET (FP) PO ONE (19:19)
[2016-07-21] MEDS ORDERED: LEVOFLOXACIN 500 MG TABLET (FP) ONE (19:49)
[2016-07-21 20:12] VITALS: BP 156/74; PULSE 90; TEMP 97.9
--- NOTE | 2016-07-22 11:32 | EKG ---
Test Reason : Blood Pressure : / mmHG Vent. Rate : 080 BPM Atrial Rate : 080 BPM P-R Int : 180 ms QRS Dur : 080 ms QT Int : 408 ms P-R-T Axes : 069 002 048 degrees QTc Int : 470 ms SINUS RHYTHM WITH OCCASIONAL PREMATURE VENTRICULAR COMPLEXES POSSIBLE LEFT ATRIAL ENLARGEMENT INCOMPLETE RBBB Confirmed by JOSÉ NIEVES MD ([id number]) on 07/22/2016 11:32:36 AM Referred By: Confirmed By:JOSÉ NIEVES MD
== END 2016-07-21 20:12 | disposition home or self-care (01) ==
LOC: JER 13:45
DX: J18.8 Other pneumonia, unspecified organism (principal); Z87.891 Personal history of nicotine dependence; J44.9 Chronic obstructive pulmonary disease, unspecified
CPT/HCPCS: 36415; 71020-TC; 71250-TC; 80053; 85025; 93005; 93010; 99282-25

== ENCOUNTER 2017-04-18 14:52 | Emergency (ER) | payer OTHER ==
[2017-04-18 15:01] VITALS: BP 143/79; PULSE 98; TEMP 97.7; BMI 20.5
[2017-04-18] MEDS ORDERED: traMADol HCL 50 MG TABLET PO ONE (15:01)
--- NOTE | 2017-04-18 15:02 | PDOC ---
History of Present Illness - General History Source: Patient, Family (son) Exam Limitations: No Limitations - History of Present Illness Initial Comments: 04/18/17 15:04 The patient is a 71 year old male, with a significant past medical history of glaucoma, who presents to the emergency department with his son s/p injury to left arm 3 days ago. Patient states that Monday night his legs gave out and he used his left arm to brace his fall. Patient states that his legs have " given out" in the past. Patient states he wasn't in any pain on Monday. However , last night he noted significant pain and swelling around his left arm and wrist area as well as decreased range of motion of that area. His son states he gave his father two ibuprofen for the pain this morning. He denies injury to head, ribs, hip, knees, elbow, or other body parts. He denies any other pain or symptoms. Allergies: NKA Past surgical history: None reported. <Santa Messer - Last Filed: 04/18/17 15:08> <Tom Stacy - Last Filed: 04/18/17 16:30> - General Chief Complaint: Injury Stated Complaint: FALL L HAND AND WRIST INJURY Time Seen by Provider: 04/18/17 15:01 Past History <Santa Messer - Last Filed: 04/18/17 15:08> - Past Medical History COPD: No Other medical history: glaucoma - Suicide/Smoking/Psychosocial Hx Smoking History: Former smoker Have you smoked in the past 12 months: No Number of Cigarettes Smoked Daily: 7 If you are a former smoker, when did you quit?: 3 years ago Information on smoking cessation initiated: No 'Breaking Loose' booklet given: 06/29/13 Hx Alcohol Use: No Drug/Substance Use Hx: No Substance Use Type: None <Tom Stacy - Last Filed: 04/18/17 16:30> - Past Medical History Allergies/Adverse Reactions: Allergies Allergy/AdvReac Type Severity Reaction Status Date / Time No Known Allergies Allergy Verified 04/18/17 14:55 Home Medications: Ambulatory Orders Bimatoprost [Lumigan] 1 drop IO DAILY 04/18/17 Tramadol HCl 50 mg PO BID PRN #10 tablet MDD 2 04/18/17 Review of Systems - Review of Systems Constitutional: No: Chills, Fever Cardiac (ROS): No: Chest Pain, Syncope Musculoskeletal: Yes: Joint Pain Neurological: No: Headache, Tingling, Weakness All Other Systems: Reviewed and Negative <Tom Stacy - Last Filed: 04/18/17 16:30> *Physical Exam - Vital Signs Last Vital Signs Temp Pulse Resp BP Pulse Ox 97.7 F 98 H 18 143/79 99 04/18/17 14:56 04/18/17 14:56 04/18/17 14:56 04/18/17 14:56 04/18/17 14:56 - Physical Exam Comments: 04/18/17 15:08 GENERAL: The patient is awake, alert, and fully oriented, in no acute distress. HEAD: Normal with no signs of trauma. EYES: Pupils equal, round and reactive to light, extraocular movements intact, sclera anicteric, conjunctiva clear. EXTREMITIES: Soft tissue swelling to the dorsal aspect of distal upper extremity over wrist and hand. Tenderness to distal ulnar and radius. Radial, medial, ulnar intact. 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 NEUROLOGICAL: Normal speech, normal gait. PSYCH: Normal mood, normal affect. SKIN: Warm, Dry, normal turgor, no rashes or lesions noted. <Santa Messer - Last Filed: 04/18/17 15:08> - Vital Signs Last Vital Signs Temp Pulse Resp BP Pulse Ox 97.7 F 98 H 18 143/79 99 04/18/17 14:56 04/18/17 14:56 04/18/17 14:56 04/18/17 14:56 04/18/17 14:56 <Tom Stacy - Last Filed: 04/18/17 16:30> ED Treatment Course - RADIOLOGY Radiology Studies Ordered: Category Date Time Status WRIST W/HAND-LEFT* [RAD] Stat Radiology 04/18/17 15:01 Ordered <Tom Stacy - Last Filed: 04/18/17 16:30> Medical Decision Making - Medical Decision Making 04/18/17 15:06 A portion of this note was documented by scribe services under my direction. I have reviewed the details of the note, within reason, and agree with the documentation with the following case summary and management plan written by me. 71-year-old male with no severe past medical history presents with left wrist pain and swelling for 1 day after mechanical trip and fall 3 days ago. Has occasional history of falls, head typical fall on Monday where his legs gave out, stopped his fall with his left wrist but felt fine afterwards. Had full utilization of this hand and wrist the subsequent day, but over the last 24 hours developed pain and swelling. No motor or sensory deficit. Took ibuprofen for pain with only slight relief. Vital signs normal. Well-appearing and ambulating Atraumatic except for left wrist: There is soft tissue swelling and ecchymosis to the dorsal aspect of the left wrist extending into the dorsal left hand, there is tenderness to the distal ulna and radius, there is no focal hand bony deformity or tenderness, neurovascularly intact distally, congenital malformations to both fifth digits. 71-year-old male with fall on outstretched hand, possible distal radius fracture. Neurovascularly intact. Pain control Left wrist/hand x-ray Splint as needed and dispo accordingly 04/18/17 16:26 on my prelim review, no displaced fracture in the wrist or hand. Oscar wrap applied for wrist sprain, ice/elevation, pain control. Return precautions discussed. Ortho f/u as needed <Tom Stacy - Last Filed: 04/18/17 16:30> *DC/Admit/Observation/Transfer - Attestations Scribe Attestion: 04/18/17 15:10 Documentation prepared by Santa Messer, acting as medical appliance maker for Tom Stacy MD. <Santa Messer - Last Filed: 04/18/17 15:08> <Tom Stacy - Last Filed: 04/18/17 16:30> Diagnosis at time of Disposition: Left wrist injury Qualifiers: Encounter type: initial encounter Qualified Code(s): S69.92XA - Unspecified injury of left wrist, hand and finger(s), initial encounter - Discharge Dispostion Disposition: HOME Condition at time of disposition: Stable - Prescriptions Prescriptions: Tramadol HCl 50 mg PO BID PRN #10 tablet MDD 2 PRN Reason: Pain - Referrals Referrals: Dinesh Arreaga MD [Staff Physician] - - Patient Instructions Printed Discharge Instructions: DI for Wrist Sprain Additional Instructions: Activity as tolerated. Stay hydrated. Ibuprofen 600 mg every 8 hours as needed for moderate pain, tramadol as prescribed as needed for severe pain. Tramadol can make you lightheaded, so take proper precautions. Ice and elevate the affected areas for 20 minutes every 3-4 hours to reduce swelling. Oscar wrap as instructed for support, advance activity as tolerated. Continue your medications as previously prescribed by your physician. You should follow up with an orthopedic as needed regarding today's emergency department visit. Consider calling Dr. Arreaga for an appointment. Return to the emergency department for any new or concerning symptoms, particularly severe swelling or discoloration, persistent or worsening pain, numbness.
[2017-04-18] MEDS ORDERED: traMADol HCL 50 MG TABLET ONE (15:39)
== END 2017-04-18 16:50 | disposition home or self-care (01) ==
LOC: FER 14:52
PROC: 2W3DX1Z Immobilization of Left Lower Arm using Splint (ICD-10-PCS; principal; 2017-04-18)
DX: S69.92XA Unspecified injury of left wrist, hand and finger(s), initial encounter (principal); W18.39XA Other fall on same level, initial encounter; Y93.9 Activity, unspecified; Y92.9 Unspecified place or not applicable; Z87.891 Personal history of nicotine dependence
CPT/HCPCS: 29125; 73110-TC-LT; 73130-TC-LT; 99282-25

== ENCOUNTER 2019-05-25 17:38 | Inpatient (IN) | payer OTHER ==
--- NOTE | 2019-05-25 18:05 | PDOC ---
History of Present Illness - General Chief Complaint: Congestive Heart Failure Stated Complaint: SENT BY PCP Time Seen by Provider: 05/25/19 18:03 History Source: Patient, Family Exam Limitations: No Limitations - History of Present Illness Initial Comments: 05/25/19 18:05 Roberth Martinez is a 73M without any significant PMH presenting with cough and one day SOB. Patient reports one week of intermittent non-productive cough. Today experienced new onset SOB worse when supine, no chest pain or palpitations, unrelated to exertion. Never had SOB like this before. Denies VILLARREAL, blurry vision , dizziness, N/V/C/D. Went to urgent care, CXR showed no PNA but had fluid in lungs, sent to ED for further evaluation. Denies any cardiac/COPD/asthma history. No medications taken. Former smoker, quit 7 years ago. No sick contacts. Denies melena or hematochezia. No PMD, no meds. NKDA. Past History - Past Medical History Allergies/Adverse Reactions: Allergies Allergy/AdvReac Type Severity Reaction Status Date / Time No Known Allergies Allergy Verified 05/25/19 18:47 Home Medications: Ambulatory Orders NK [No Known Home Medication] 05/25/19 COPD: No - Psycho Social/Smoking Cessation Hx Smoking History: Current every day smoker Have you smoked in the past 12 months: No Number of Cigarettes Smoked Daily: 7 If you are a former smoker, when did you quit?: 3 years ago Information on smoking cessation initiated: No 'Breaking Loose' booklet given: 06/29/13 Hx Alcohol Use: No Drug/Substance Use Hx: No Substance Use Type: None Review of Systems - Review of Systems Able to Perform ROS?: Yes Constitutional: No: Chills, Fever HEENTM: No: Eye Pain Respiratory: Yes: Cough, Shortness of Breath, SOB at Rest. No: Wheezing, Productive cough Cardiac (ROS): No: Chest Pain ABD/GI: No: Constipated, Diarrhea, Nausea, Poor Appetite, Poor Fluid Intake, Vomiting : No: Symptoms Reported Musculoskeletal: No: Symptoms Reported Integumentary: No: Symptoms Reported Neurological: No: Headache, Tingling, Weakness, Unsteady Gait, Dizziness Endocrine: Yes: Unexplained Weight Gain Hematologic/Lymphatic: Yes: Easy Bruising All Other Systems: Reviewed and Negative *Physical Exam - Vital Signs Last Vital Signs Temp Pulse Resp BP Pulse Ox 97.5 F L 115 H 18 135/72 97 05/25/19 17:57 05/25/19 17:57 05/25/19 17:57 05/25/19 17:57 05/25/19 17:57 - Physical Exam General Appearance: Yes: Nourished, Appropriately Dressed. No: Apparent Distress HEENT: positive: EOMI, CHARISMA, Normal ENT Inspection, Normal Voice, Symmetrical, Pharynx Normal, Hearing Grossly Normal. negative: Scleral Icterus (R), Scleral Icterus (L) Neck: positive: Trachea midline, Normal Thyroid, Supple. negative: Tender, Rigid, Stridor, Lymphadenopathy (R), Lymphadenopathy (L) Respiratory/Chest: positive: Labored Respiration, Rapid RR, Crackles (bilateral) . negative: Chest Tender, Lungs Clear, Normal Breath Sounds, Respiratory Distress, Decreased Breath Sounds, Stridor, Wheezing Cardiovascular: positive: Regular Rhythm, Tachycardia Gastrointestinal/Abdominal: positive: Normal Bowel Sounds, Flat, Soft. negative : Tender, Organomegaly, Guarding, Rebound, Hepatomegaly Musculoskeletal: positive: Normal Inspection. negative: CVA Tenderness, Vertebral Tenderness Extremity: positive: Normal Capillary Refill, Normal Inspection, Normal Range of Motion, Pelvis Stable. negative: Tender, Coldness, Cyanosis Integumentary: positive: Normal Color, Dry, Warm Neurologic: positive: Fully Oriented, Alert, Normal Mood/Affect, Normal Response ED Treatment Course - LABORATORY CBC & Chemistry Diagram: 05/25/19 18:32 05/25/19 18:27 Medical Decision Making - Medical Decision Making 05/25/19 19:19 Patient has no notable PMH or medications taken, presenting with acute onset SOB and cough without other associated PNA or URI symptoms. VS notable for tachycardia without fever or hypotension, satting well on RA but is experiencing progressive SOB in ED at rest. Has bibasilar crackles on exam, but is not fluid overloaded. Immediate concern for new onset CHF, pleural effusion, PNA, tachycardia also suggests PE. - CMP/CBC for eval lytes, renal function, infection - CP/BNP/CXR/ECG for eval new onset CHF, heart strain, and lung effusion - Coags/D-dimer for eval PE ECG shows sinus tachycardia with deep Q waves suggestive of new onset strain, HR 126, QRS 76, QTc 411, 1mm TORSTEN V3/V4 Bedside POCUS shows EPSS 2.76mm and poor LV squeeze, collapsible IVC. Bilateral B-lines at both apices with effusions noted in both lung bases. POCUS results consistent with new onset cardiogenic fluid overload. Ordering 20mL IV Lasix for fluid overload. Starting on BiPAP for worsening SOB. Labs notable for: - CBC WNL - D-dimer 944, age-adjusted upper limit 730 - BNP 7000 - Cr 1.3 - remaining CMP WNL - trop 0.03 05/25/19 19:37 Preliminary read of CXR shows bilateral pulmonary edema. 05/25/19 20:24 Needs admission for evaluation for new onset CHF and pulmonary effusions requiring diuresis and further cardiac eval. 05/25/19 20:[address] Atkinson with admitting team, good for tele admit under Dr. Paulson. Discharge - Discharge Information Problems reviewed: Yes Clinical Impression/Diagnosis: Shortness of breath, Pleural effusion Heart failure Qualifiers: Heart failure type: unspecified Heart failure chronicity: acute Qualified Code( s): I50.9 - Heart failure, unspecified Condition: Stable - Admission Yes - Follow up/Referral - Patient Discharge Instructions - Post Discharge Activity
--- NOTE | 2019-05-25 18:29 | PDOC ---
Attending Attestation - Resident Resident Name: Savage San - ED Attending Attestation I have performed the following: I have examined & evaluated the patient, The case was reviewed & discussed with the resident, I agree w/resident's findings & plan - HPI HPI: 05/25/19 18:24 73 YOM with h/o glaucoma, no other medical history, former smoker presenting with acute onset of shortness of breath today dyspnea at rest and with talking associated with a cough x 1 week. sent in from urgent care with CXR for pulmonary edema, concern for new onset CHF. no prior history of cardiac or lung disease 05/25/19 18:42 - Physicial Exam PE: 05/25/19 18:25 agree with the resident's HPI and PE as documented in the electronic medical record. mild respiratory distress, EOMI, PERRL, nl conjunctiva, anicteric; neck supple. lungs with b/l lower lobe crackles, tachypneic and with lip pursing, speaking clear/full sentences, +tachycardic, no murmur, abdomen soft nontender. +protuberant. no rebound, guarding. Back nontender. MONTERO x4, no focal neuro deficits. No peripheral edema. normal color for ethnicity, WWP. 05/25/19 18:43 - Medical Decision Making 05/25/19 18:28 Vital Signs Temp Pulse Resp BP Pulse Ox 97.5 F L 115 H 18 135/72 97 05/25/19 17:57 05/25/19 17:57 05/25/19 17:57 05/25/19 17:57 05/25/19 17:57 DDx SOB: ACS, PE, PTX, CHF, COPD exac, pulmonary edema, pleurisy, pneumonia, viral syndrome. effusion. anemia, electrolyte/metabolic derangements. VS reviewed, +tachycardic 115bpm. normotensive, sats wnl. no RA, with mild respiratory distress. he is tachypneic, crackles on lung exam Bedside echo and thoracic exam with decreased contractility, no pericardial effusion, RV less than LV, bilateral moderate pleural effusions with spine sign present as well as B-lines in multiple buckley consistent with alveolar interstitial syndrome. appears in new onset CHF/pulmonary edema. EKG abnormal with LVH/sinus tachy increased WOB, shift his fluid overload and diurese with low dose lasix 20mg as he is naive. bnp consistent with fluid overload state. lytes wnl. Cr normal, can nathaly lasix. neg trop, reassuring Plan for admit observation,new onset CHF, fluid overload/pulmonary vascular congestion and b/l pleural effusions, to r/o ischemia, serial trops and EKG/ tele monitoring. no chest pain. cards cs as inpatient. discussion with patient and family at bedside, made aware of impression and plan, questions answered. 05/25/19 18:46 05/26/19 09:28 Heart Score/ECG Review #1 ECG reviewed & interpreted by me at: 18:10 General ECG Interpretation: Sinus Rhythm, Normal Intervals Compared to previous ECG there are: Previous ECG unavail 05/25/19 18:27 EKG sinus tachycardia 126 bpm, LVH, intermittent PVC - , no interval abnormalities, narrow QRS, ST and T wave segments and morphology normal. Nonspecific T wave abnormalities
[2019-05-25 19:03] LABS: BASO % 0.6 % (0-2.0); EOS % 0.5 % (0-4.5); HEMOGLOBIN 14.3 GM/dL (11.7-16.9); LYMPH % 14.8 % (8-40); MCH 29.7 pg (25.7-33.7); MCHC 33.2 g/dl (32.0-35.9); MEAN CELL VOLUME 89.4 fl (80-96); MEAN PLT VOLUME 7.4 fl (7.5-11.1); MONO % 5.3 % (3.8-10.2); NEUT % 78.8 % (42.8-82.8); PLATELET COUNT 287 K/MM3 (134-434); RBC 4.82 M/mm3 (4.00-5.60); RDW 14.4 % (11.9-15.9); WHITE BLOOD COUNT 7.4 K/mm3 (4.0-10.0)
[2019-05-25] MEDS ORDERED: FUROSEMIDE 40 MG/4 ML INJECTABLE VIAL IVPUSH ONE (19:12)
[2019-05-25 19:25] LABS: INR 0.92 (0.83-1.09); PROTHROMBIN TIME (PATIENT) 10.9 SEC (9.7-13.0)
[2019-05-25 19:30] LABS: N-TERMINAL BNP 7534.8 pg/ml (5-125)
[2019-05-25 19:32] LABS: BILIRUBIN,TOTAL 0.6 mg/dL (0.2-1); BLOOD UREA NITROGEN 24.2 mg/dL (7-18); CALCIUM 9.2 mg/dL (8.5-10.1); CREATININE 1.3 mg/dL (0.55-1.3); POTASSIUM 4.3 mmol/L (3.5-5.1); TOT PROT 7.5 g/dl (6.4-8.2)
[2019-05-25] MEDS ORDERED: FUROSEMIDE 40 MG/4 ML INJECTABLE VIAL ONE (19:32)
--- NOTE | 2019-05-25 20:43 | PN ---
Teaching Attending Note Name of Resident: Destiny Atkinson ATTENDING PHYSICIAN STATEMENT I saw and evaluated the patient. I reviewed the resident's note and discussed the case with the resident. I agree with the resident's findings and plan as documented. SUBJECTIVE: Patient is a 73 year old man with a PMH of BPH (s/p laser therapy), Glaucoma and Snyndactyly presenting with cough and one day SOB. Patient reports one week of intermittent non-productive cough. Today experienced new onset SOB worse when supine, no chest pain or palpitations, unrelated to exertion. Never had SOB like this before. Denies headache, blurry vision, dizziness, nausea, vomiting, constipation or diarrhea. Went to urgent care, CXR showed no PNA but had fluid in lungs and sent to the ER for further evaluation. Denies any cardiac , COPD or asthma history. No medications taken. Denies melena or hematochezia. Ex-smoker. Denies tobacco, alcohol or illicit drug use. No sick contacts or recent travels. Got the Flu vaccine this season. FH of HTN and CAD. OBJECTIVE: Alert Vital Signs Period Temp Pulse Resp BP Sys/Edwards Pulse Ox Last 24 Hr 97.5 F 115 18 135/72 97 HEENT: No Jaundice, eye redness or discharge, PERRLA, EOMI. Poor dentition - missing teeth. Normocephalic, atraumatic. External ears are normal and hearing is grossly intact. No nasal discharge. Neck: Supple, nontender. No palpable adenopathy or thyromegaly. No JVD Chest: Good effort. Clear to auscultation and percussion. Heart: Regular. No S3, rub or murmur Abdomen: Not distended, soft, nontender; possible midabdominal mass. No rebound or guarding. Normal bowel sounds. Ext: Peripheral pulses intact. No leg edema. Skin: Warm and dry. No petechiae, rash or ecchymosis. Neuro: Alert. Oriented x3. CN 2-12 grossly intact. Sensation grossly intact in all four extremities and DTR are symmetric. Psych: Appropriate mood and affect. Good insight. Home Medications Medication Instructions Recorded NK [No Known Home Medication] 05/25/19 Abnormal Lab Results 05/25/19 05/25/19 05/25/19 18:27 18:32 18:32 MPV 7.4 L D D-Dimer 944 H BUN 24.2 H Random Glucose 108 H Creatine Kinase CK-MB (CK-2) B-Natriuretic Peptide 05/25/19 18:37 MPV D-Dimer BUN Random Glucose Creatine Kinase 311 H CK-MB (CK-2) 14.1 H B-Natriuretic Peptide 7534.8 H ASSESSMENT AND PLAN: 1. New onset CHF - CXR shows pulmonary vascular congestion. No obvious risk factor for CHF. EKG shows sinus tachycardia at 126/minute, LVH, intermittent PVCs; nonspecific T wave abnormalities - anterior infarct, age undetermined. Initial troponin is negative. Elevated BNP and D-Dimer. Got IV lasix in the ER. Awaiting chest CTA to rule out PE. Will admit to telemetry to rule out ACS, diurese with IV lasix, get urinalysis, fasting lipids, restrict dietary salt intake and get daily standing weight and ECHO. Get CT abdomen/pelvis to investigate abdominal mass. Consult Cardiology. 2. Tobacco Use Counseled on risks associated with tobacco use. We will provide patient all the necessary assistance to facilitate smoking cessation and prescribe Nicotine patch. 3. DVT prophylaxis - Lovenox 40 mg SQ q 24 hours. 4. Advance directives - Full code
--- NOTE | 2019-05-25 21:45 | PDOC ---
*Physical Exam - Vital Signs Last Vital Signs Temp Pulse Resp BP Pulse Ox 97.5 F L 99 H 26 H 114/52 L 100 05/25/19 17:57 05/25/19 21:01 05/25/19 21:01 05/25/19 21:01 05/25/19 21:01 ED Treatment Course - LABORATORY CBC & Chemistry Diagram: 05/25/19 18:32 05/25/19 18:27 - ADDITIONAL ORDERS Additional order review: Laboratory Results 05/25/19 05/25/19 05/25/19 18:37 18:32 18:32 PT with INR 10.90 INR 0.92 PTT (Actin FS) 36.0 D-Dimer 944 H Sodium Potassium Chloride Carbon Dioxide Anion Gap BUN Creatinine Est GFR (CKD-EPI)AfAm Est GFR (CKD-EPI)NonAf Random Glucose Calcium Total Bilirubin AST ALT Alkaline Phosphatase Creatine Kinase 311 H Creatine Kinase Index 4.5 CK-MB (CK-2) 14.1 H Troponin I 0.03 B-Natriuretic Peptide 7534.8 H Total Protein Albumin 05/25/19 18:27 PT with INR INR PTT (Actin FS) D-Dimer Sodium 137 Potassium 4.3 Chloride 102 Carbon Dioxide 25 Anion Gap 10 BUN 24.2 H Creatinine 1.3 Est GFR (CKD-EPI)AfAm 62.74 Est GFR (CKD-EPI)NonAf 54.13 Random Glucose 108 H Calcium 9.2 Total Bilirubin 0.6 AST 32 ALT 29 Alkaline Phosphatase 95 Creatine Kinase Creatine Kinase Index CK-MB (CK-2) Troponin I B-Natriuretic Peptide Total Protein 7.5 Albumin 4.0 05/25/19 18:32 RBC 4.82 MCV 89.4 MCHC 33.2 RDW 14.4 MPV 7.4 L D Neutrophils % 78.8 Lymphocytes % 14.8 Monocytes % 5.3 Eosinophils % 0.5 Basophils % 0.6 - Medications Given in the ED: ED Medications Discontinued Medications Generic Name Dose Route Start Last Admin Trade Name Freq PRN Reason Stop Dose Admin Furosemide 20 mg 05/25/19 19:12 05/25/19 19:38 Lasix Injection - IVPUSH 05/25/19 19:13 20 mg ONCE ONE Administration Medical Decision Making - Medical Decision Making 05/25/19 21:44 I received patient on signout. Pt has elevated d dimer. BNP elevation. Bedside sono not consistent with PE; however CTA is still pending, Pt has been admitted for admission to [facility] for SOB and heart monitoring. Hospitalist is aware 05/26/19 06:44 Patient Name: ROBERT AMIN THIS IS A PRELIMINARY REPORT FROM [facility] DATE OF SERVICE: 2019-05-25 22:37:46 IMAGES: [id number] EXAM: CTA chest with contrast and CTA abdomen, and pelvis with contrast HISTORY:Rule out PE and mass COMPARISON: None. FINDINGS: CTA chest: No evidence for pulmonary embolism or aortic dissection. Moderate bilateral pleural effusions. Posterior dependent atelectatic changes in the lungs. A few nonspecific pleural and parenchymal nodules in the right middle lobe, lower lobes, and lingula. No anu lung mass. Scattered atelectasis and fibrotic changes in the remainder of the lungs with moderate emphysematous changes. No pneumothorax. Mild mediastinal adenopathy. CT abdomen and pelvis: Multiple hepatic cysts. Distended gallbladder, usually from fasting state. Mild intrahepatic and extrahepatic biliary ductal dilatation. Proximal duodenal diverticulum. Pancreas, adrenal glands, and spleen grossly unremarkable. Multiple indeterminate bilateral renal cysts, left greater than right. No renal or urinary calculi. No AAA. No aortic dissection. *Very distended urinary bladder extending into the lower abdomen with multiple diverticuli and trabeculation. Findings are suspicious for chronic partial outlet obstruction. No obvious diverticulitis, appendicitis, small bowel obstruction, free fluid, or free air. Discharge - Discharge Information Problems reviewed: Yes Clinical Impression/Diagnosis: Shortness of breath, Pleural effusion Heart failure Qualifiers: Heart failure type: unspecified Heart failure chronicity: acute Qualified Code( s): I50.9 - Heart failure, unspecified Condition: Stable - Follow up/Referral - Patient Discharge Instructions - Post Discharge Activity
--- NOTE | 2019-05-25 22:00 | HP ---
CHIEF COMPLAINT: shortness of breath PCP: None HISTORY OF PRESENT ILLNESS: 73M w/ pmhx of BPH (s/p laser tx years ago), glaucoma presents to the ED with complaints of shortness of breath. States overnight, he became acutely short of breath which woke him up from sleep. Per EMR, he went to urgent care, had a chest xray done that showed "fluid in the lungs" and was then advised to go to the ED. Denies ever having these symptoms in the past. Also denies having dyspnea on exertion. Pt admits to needing 2 pillows to sleep to help with his breathing, but this has been going on for years. At baseline, pt is very active , lives with his son at home and walks outside on a daily basis without the use of any assistive devices. Additionally, pt reports having a 1 week history of non-productive cough. Denies fever/chills, nausea/vomiting, sore throat, abd pain, or bowel symptoms. He does endorse having a chronic problem of urinary incontinence especially at night; says he wakes up in the morning drenched in his urine but denies having incontinence throughout the day. ER course was notable for: (1) ECG showed sinus tachycardia at 126/minute, LVH, intermittent PVCs; nonspecific T wave abnormalities - anterior infarct, age undetermined (2) IV Lasix 20 mg given (3) Recent Travel: Denies PAST MEDICAL HISTORY: As per HPI PAST SURGICAL HISTORY: Syndactyly repair w/ skin grafting Drainage of L hydrocele Social History: Smoking: Former smoker; quit 7 years ago. Previously smoked 1PPD x50 years Alcohol: Denies Drugs: Denies Allergies No Known Allergies Allergy (Verified 05/25/19 18:47) HOME MEDICATIONS: Home Medications Medication Instructions Recorded NK [No Known Home Medication] 05/25/19 REVIEW OF SYSTEMS CONSTITUTIONAL: Absent: fever, chills, diaphoresis, generalized weakness, malaise, loss of appetite, weight change HEENT: Absent: rhinorrhea, nasal congestion, throat pain, throat swelling, difficulty swallowing, mouth swelling, ear pain, eye pain, visual changes CARDIOVASCULAR: Absent: chest pain, syncope, palpitations, irregular heart rate, lightheadedness , peripheral edema RESPIRATORY: cough, shortness of breath Absent: dyspnea with exertion, orthopnea, wheezing, stridor, hemoptysis GASTROINTESTINAL: Absent: abdominal pain, abdominal distension, nausea, vomiting, diarrhea, constipation, melena, hematochezia GENITOURINARY: urinary frequency Absent: dysuria, urgency, hesitancy, hematuria, flank pain, genital pain MUSCULOSKELETAL: Absent: myalgia, arthralgia, joint swelling, back pain, neck pain SKIN: Absent: rash, itching, pallor HEMATOLOGIC/IMMUNOLOGIC: Absent: easy bleeding, easy bruising, lymphadenopathy, frequent infections ENDOCRINE: Absent: unexplained weight gain, unexplained weight loss, heat intolerance, cold intolerance NEUROLOGIC: bladder incontinence Absent: headache, focal weakness or paresthesias, dizziness, unsteady gait, seizure, mental status changes, PSYCHIATRIC: Absent: anxiety, depression, suicidal or homicidal ideation, hallucinations. PHYSICAL EXAMINATION Vital Signs - 24 hr 05/25/19 05/25/19 05/25/19 17:57 20:50 21:01 Temperature 97.5 F L Pulse Rate 115 H Pulse Rate [ 99 H Left] Respiratory 18 26 H Rate Blood Pressure 135/72 Blood Pressure 114/52 L [Right] O2 Sat by Pulse 97 99 100 Oximetry (%) GENERAL: Pleasant, tall, thin male. NAD. Mildly dyspneic on NIPPV. HEENT: AT/NC. Cachectic. Temporal wasting. Prominent clavicular borders. NECK: Normal range of motion, supple without lymphadenopathy, JVD, or masses. LUNGS: CTA B/L. No wheezes or rales noted. HEART: RRR. Normal S1, S2. No murmurs noted. ABDOMEN: Protruberant, +midline abd mass w/ abnormal contour. No tenderness to palpation. No rebound tenderness or guarding. MUSCULOSKELETAL: Normal range of motion at all joints. Multiple deformities on all digits in b/l hands. EXTREMITIES: No peripheral edema noted. NEUROLOGICAL: Cranial nerves II-XII intact. Normal speech. PSYCHIATRIC: Cooperative. Good eye contact. Appropriate mood and affect. SKIN: Warm, dry, normal turgor, no rashes or lesions noted, normal capillary refill. CBCD WBC 7.4 K/mm3 (4.0-10.0) 05/25/19 18:32 RBC 4.82 M/mm3 (4.00-5.60) 05/25/19 18:32 Hgb 14.3 GM/dL (11.7-16.9) 05/25/19 18:32 Hct 43.0 % (35.4-49) D 05/25/19 18:32 MCV 89.4 fl (80-96) 05/25/19 18:32 MCHC 33.2 g/dl (32.0-35.9) 05/25/19 18:32 RDW 14.4 % (11.9-15.9) 05/25/19 18:32 Plt Count 287 K/MM3 (134-434) D 05/25/19 18:32 MPV 7.4 fl (7.5-11.1) L D 05/25/19 18:32 CMP Sodium 137 mmol/L (136-145) 05/25/19 18:27 Potassium 4.3 mmol/L (3.5-5.1) 05/25/19 18:27 Chloride 102 mmol/L (98-107) 05/25/19 18:27 Carbon Dioxide 25 mmol/L (21-32) 05/25/19 18:27 Anion Gap 10 MMOL/L (8-16) 05/25/19 18:27 BUN 24.2 mg/dL (7-18) H 05/25/19 18:27 Creatinine 1.3 mg/dL (0.55-1.3) 05/25/19 18:27 Calcium 9.2 mg/dL (8.5-10.1) 05/25/19 18:27 Total Bilirubin 0.6 mg/dL (0.2-1) 05/25/19 18:27 AST 32 U/L (15-37) 05/25/19 18:27 ALT 29 U/L (13-61) 05/25/19 18:27 Alkaline Phosphatase 95 U/L (45-117) 05/25/19 18:27 Total Protein 7.5 g/dl (6.4-8.2) 05/25/19 18:27 Albumin 4.0 g/dl (3.4-5.0) 05/25/19 18:27 IMAGING: * CTA Chest w/ IV contrast (prelim read): * CTAP (prelim read): * Nuclear Stress test (02/07): No evid of exercise-induced ischemia, mod-sized severe intensity inferior - apical fixed perfusion defect c/w old MN. Dilated LV , severe global hypokinesis, inferior wall akinesis, severely reduced systolic function EF 30% ASSESSMENT/PLAN: 73M w/ pmhx of BPH (s/p laser tx years ago), glaucoma presents to the ED with complaints of shortness of breath admitted for acute CHF exacerbation. #New Onset CHF Exacerbation; Clinically stable. BNP 7500 -ECG showed sinus tachycardia at 126/minute, LVH, intermittent PVCs; nonspecific T wave abnormalities - anterior infarct, age undetermined -CXR shows -Given IV Lasix 20 in ED, will continue with IV Lasix 40 -CTA chest (prelim read) neg for PE, +mod b/l pleural effusions -Monitor I/Os, daily weights -trops neg x1, cont to trend -Flu neg #Distended Urinary Bladder; in setting of hx of BPH. Complains of persistent nocturnal urinary incontinence. -CTAP (prelim read) showed very distended bladder extending into lower abdomen w / multiple diverticuli and trabeculation; findings suspicious for chronic partial outlet obstruction; mild intrahepatic and extrahepatic biliary ductal dilatation, await final read -Meyer catheter ordered; monitor urine output -UA neg -Urology consulted (Dr. Correa) #Multiple B/l Renal Cysts; Cr stable. -Renal consulted (Dr. Terrazas) #Prophylaxis DVT: SQH #FEN -no IVf -recheck lytes in AM -Sodium-controlled diet Dispo -admit to tele Visit type - Emergency Visit Emergency Visit: Yes ED Registration Date: 05/25/19 Care time: The patient presented to the Emergency Department on the above date and was hospitalized for further evaluation of their emergent condition. - New Patient This patient is new to me today: Yes Date on this admission: 05/26/19 - Critical Care Critical Care patient: No ATTENDING PHYSICIAN STATEMENT I saw and evaluated the patient. I reviewed the resident's note and discussed the case with the resident. I agree with the resident's findings and plan as documented. SUBJECTIVE: OBJECTIVE: ASSESSMENT AND PLAN:
[2019-05-26] MEDS ORDERED: HEPARIN NA (PORCINE) 5,000 UNITS/ML 1ML VIAL ONE (01:28)
[2019-05-26] MEDS ORDERED: FUROSEMIDE 40 MG/4 ML INJECTABLE VIAL ONE (01:28)
[2019-05-26] MEDS: FUROSEMIDE 40 MG/4 ML INJECTABLE VIAL IVPUSH SCH ×2 (01:57→10:01)
[2019-05-26] MEDS: HEPARIN NA (PORCINE) 5,000 UNITS/ML 1ML VIAL SQ SCH ×3 (01:57→21:42)
[2019-05-26] MEDS ORDERED: LIDOCAINE HCL 2% JELLY 10 ML CARTRIDGE ONE (02:52)
[2019-05-26 03:41] LABS: PH,URINE 6.5 (5.0-8.0); URINE APPEARANCE CLEAR; URINE BILIRUBIN NEGATIVE (NEGATIVE); URINE COLOR YELLOW; URINE GLUCOSE (UA) NEGATIVE (NEGATIVE); URINE KETONE NEGATIVE (NEGATIVE); URINE LEUK ESTERASE NEGATIVE (NEGATIVE); URINE NITRITE NEGATIVE (NEGATIVE); URINE PROTEIN NEGATIVE (NEGATIVE); URINE UROBILINOGEN 0.2 mg/dL (0.2-1.0)
[2019-05-26 07:22] LABS: BASO % 0.4 % (0-2.0); EOS % 0.1 % (0-4.5); HEMATOCRIT 36.6 % (35.4-49); HEMOGLOBIN 12.4 GM/dL (11.7-16.9); LYMPH % 12.3 % (8-40); MCH 30.1 pg (25.7-33.7); MCHC 33.9 g/dl (32.0-35.9); MEAN CELL VOLUME 88.6 fl (80-96); MEAN PLT VOLUME 7.3 fl (7.5-11.1); MONO % 5.3 % (3.8-10.2); NEUT % 81.9 % (42.8-82.8); PLATELET COUNT 238 K/MM3 (134-434); RBC 4.13 M/mm3 (4.00-5.60); RDW 14.3 % (11.9-15.9)
[2019-05-26 07:58] LABS: ALBUMIN 3.2 g/dl (3.4-5.0); BILIRUBIN,TOTAL 0.9 mg/dL (0.2-1); BLOOD UREA NITROGEN 23.1 mg/dL (7-18); CALCIUM 8.1 mg/dL (8.5-10.1); CREATININE 1.3 mg/dL (0.55-1.3); PHOSPHOROUS 4.3 mg/dL (2.5-4.9); POTASSIUM 3.9 mmol/L (3.5-5.1); TOT PROT 6.2 g/dl (6.4-8.2)
[2019-05-26] MEDS ORDERED: PNEUMOC 13-VAL CONJ-DIP CRM/PF 0.5 ML DISP.SYRIN IM ONE (09:00)
--- NOTE | 2019-05-26 09:14 | CON.CARD ---
Consult Consult Specialty:: Cardiology Referred by:: Dr. Paulson Reason for Consultation:: CHF - History of Present Illness Chief Complaint: SOB History of Present Illness: 73M with hx smoking 1 PPD for many years (quit 7 years ago) presented for evaluation of sudden onset of SOB. Had been coughing for few days prior. No CP, fever, PND or edema. Received Lasix, feels "much better" TnI negative x 2. CXR: increased intersitial markings. BNP elevated. D- dimer elevated, which prompted CTA ordered by ER, pending. 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: Alzheimer's, CVA, Dementia, Migraine, Multiple Sclerosis, Peripheral Neuropathy, Parkinson's, Seizure, Syncope, TIA, Vertigo, Other Cardio/Vascular: No: AFIB, Aneurysm, Aortic Insufficiency, Aortic Stenosis, CAD , CHF, Deep Vein Thrombosis, HTN, Hyperlipdemia, MN, Mitral Insufficiency, Mitral Stenosis, Murmur, Pulmonary Hypertension, Other Pulmonary: Yes: Other (suspected COPD) Gastrointestinal: No: Ascites, Cancer, Constipation, Crohn's Disease, Diverticulitis, Diverticulosis, Esophageal Varices, Gastritis, GERD, GI Bleed, Hemorrhoids, Hiatal Hernia, Inflamatory Bowel Disease, Irritable Bowel Disease, Pancreatitis, Peptic Ulcer Disease, Ulcerative Colitis, Other Hepatobiliary: No: Cirrhosis, Cholelithiasis, Cholecystitis, Choledocholithiasis , Hepatitis A, Hepatitis B, Hepatitis C, Other Renal/: No: Renal Failure, Renal Inusuff, BPH, Cancer, Hematuria, Hemodialysis , Neurogenic Bladder, Renal Calculi, UTI, Other Heme/Onc: No: Anemia, B12 Deficiency, Bleeding Disorder, Cancer, Current Chemotherapy, Current Radiation Therapy, Hemochromatosis, Hypercoaguable State, Myeloproliferative Synd, Sickle Cell Disease, Sickle Cell Trait, Thrombocytopenia, Other Infectious Disease: No: AIDS, C-Diff, Herpes Zoster, HIV, MRSA, STD's, Tuberculosis, VREF, Other Psych: No: Addictions, Anxiety, Bipolar, Depression, Panic, Psychosis, Schizophrenia, Other Musculoskeletal: No: Bursitis, Chronic low back pain, Hemiparesis, Hemiplegia, Osteoarthritis, Paraplegia, Other Rheumatology: No: Fibromyalgia, Gout, Lupus, Rheumatoid Arthritis, Sarcoidosis, Vasculitis, Other ENT: No: Allergic Rhinitis, Sinusitis, Other Endocrine: No: Vitaly's Disease, Oren's Disease, Diabetes Insipidus, Diabetes Mellitus, Hyperparathyroidism, Hyperthyroidism, Hypothyroidism, Osteopenia, SIADH, Other Dermatology: No: Basal Cell, Cellulitis, Eczema, Melanoma, Psoriasis, Squamous Cell, Other - Past Surgical History Past Surgical History: No: None, AAA Repair, AICD, Amputation, Appendectomy, Arthrosocopy, AV Fistula/Graft, Bariatric Surgery, Breast Biopsy, Bypass, CABG, Carotid Endarterectomy, Cataract Removal, Cholecystectomy, Colectomy, Colonoscopy, Colostomy, Craniotomy, , Cystectomy, Hernia Repair, Hysterectomy, Ileal Conduit, Ileosotomy, Joint Replacement, Kidney Transplant, Laminectomy, Liver Transplant, Mastectomy, Nephrectomy, Oopherectomy, Orchiectomy, Permanent Pacemaker, Prostatectomy, Splenectomy, Stent, Thoracotomy , TURP, Tonsillectomy, Tubal Ligation, Upper Endoscopy, Valve Replacement, Vasectomy, Vein Stripping/Ligation - Alcohol/Substance Use Hx Alcohol Use: No - Smoking History Smoking history: Former smoker Have you smoked in the past 12 months: No Aproximately how many cigarettes per day: 7 If you are a former smoker, when did you quit?: 7 years ago - Social History Usual Living Arrangement: With Spouse History of Recent Travel: No Home Medications - Allergies Allergies/Adverse Reactions: Allergies Allergy/AdvReac Type Severity Reaction Status Date / Time No Known Allergies Allergy Verified 05/25/19 18:47 - Home Medications Home Medications: Ambulatory Orders NK [No Known Home Medication] 05/25/19 Family Medical History Family History: Unremarkable (no early CAD or SCD) Review of Systems - Review of Systems Constitutional: reports: No Symptoms Eyes: reports: No Symptoms HENT: reports: No Symptoms Neck: reports: No Symptoms Cardiovascular: reports: Shortness of Breath Respiratory: reports: Exercise Intolerance, SOB on Exertion Gastrointestinal: denies: No Symptoms, Abdominal Pain, Bloating, Constipation, Diarrhea, Dysphagia, Indigestion, Melena, Nausea, Rectal Bleeding, Vomiting, Vomiting Blood, Other Genitourinary: reports: Urgency Breasts: denies: No Symptoms Reported, See HPI, Breast Implants, Discharge from Nipple, Lumps, Pain, Skin Changes, Other Musculoskeletal: denies: No Symptoms, Back Pain, Crepitus, Decreased ROM, Extremity Pain, Joint Pain, Joint Swelling, Muscle Pain, Muscle Cramps, Muscle Weakness, Other Integumentary: denies: No Symptoms, Blister, Bruising, Change in Color, Eczema, Erythema, Incision, Lesions, Lump, Pallor, Pruritis, Rash, Wound, Other Neurological: denies: No Symptoms, Change in LOC, Change in Speech, Confusion, Dizziness, Headache, Incoordination, Numbness, Parasthesia, Pre-Existing Deficit , Seizure, Syncope, Tremors, Unsteady Gait, Weakness, Other Endocrine: denies: No Symptoms, Excessive Sweating, Flushing, Increased Hunger, Increased Thirst, Intolerance to Cold, Intolerance to Heat, Unexplained Weight Gain, Unexplained Weight Loss, Other Hematology/Lymphatic: denies: No Symptoms, Easily Bruised, Excessive Bleeding, Swollen Glands, Other Psychiatric: denies: No Symptoms, Altered Sleep Pattern, Anxiety, Depression, Hallucinations, Panic, Paranoia, Suicidal, Other - Risk Factors Known Risk Factors: Yes: Smoking, Other Vital Signs: Vital Signs Temperature 97.5 F L 05/26/19 04:30 Pulse Rate 96 H 05/26/19 04:30 Respiratory Rate 18 05/26/19 04:30 Blood Pressure 135/77 05/26/19 04:30 O2 Sat by Pulse Oximetry (%) 97 05/26/19 06:00 Constitutional: Yes: No Distress, Calm Eyes: Yes: Conjunctiva Clear, EOM Intact Neck: Yes: Trachea Midline Respiratory: Yes: Other (no wheezing, decreased basilar breath sounds.) Gastrointestinal: Yes: Soft Renal/: Yes: Other (MCCRACKEN IN PLACE) JVD: No Carotid Bruit: No PMI: Non-Displaced Heart Sounds: Yes: S1, S2 (rrr, no M/R/G) Edema: No Peripheral Pulses WNL: Yes Neurological: Yes: Alert, Oriented ...Motor Strength: WNL - Other Data Labs, Other Data: CBC, BMP 05/26/19 06:38 05/26/19 06:38 INR, PTT INR 0.92 (0.83-1.09) 05/25/19 18:32 Troponin, BNP 05/25/19 05/26/19 18:37 06:38 Troponin I 0.03 0.05 B-Natriuretic Peptide 7534.8 H Troponin, BNP 05/25/19 05/26/19 18:37 06:38 Troponin I 0.03 0.05 B-Natriuretic Peptide 7534.8 H Laboratory Tests 05/25/19 05/25/19 05/26/19 18:32 18:37 06:38 WBC 7.0 Plt Count 238 D-Dimer 944 H Sodium Potassium Creatinine Creatine Kinase 311 H Troponin I 0.03 B-Natriuretic Peptide 7534.8 H 05/26/19 05/26/19 06:38 06:38 WBC Plt Count D-Dimer Sodium 135 L Potassium 3.9 Creatinine 1.3 Creatine Kinase Troponin I 0.05 B-Natriuretic Peptide Echo: Pending Imaging - Results Chest X-ray: Report Reviewed, Image Reviewed Cat Scan: Image Reviewed EKG: Image Reviewed Assessment/Plan IMP: Acute on chronic CHF (systolic vs diastolic ?) likely etiology of SOB Possible underlying CAD, based on ECG Suspected COPD, former smoker BPH with chronic urinary retention. Unclear trigger of CHF. REC: 1.CHF/SOB: pleural effusions on CT -Improved with IV lasix -Increase to 40mg IV daily -Daily weights, BMP to follow lytes and renal fx -Echo for EF assessment -Will need ischemic evaluation when euvolemic. -Low suspicion for pulmonary embolism despite the D-dimer elevation (nonspecific ). Prelim CTA negative for PE, f/u official read. 2. Suspected CAD: ECG w/ poor R wave progression/ possible old anteroseptal MN -Enzymes negative here -No overt ischemic sx -TnI negative -Echo as above -ischemic evaluation prior to d/c, Lexiscan MPI when euvolemic 3. Probable COPD: former smoker -outpt PFTs 4. BPH: chronic urinary retention -takes no meds -Now with mccracken to help quantitate urine output and avoid retention -Consider starting Flomax, defer to PMD -Should have evaluation as outpt
--- NOTE | 2019-05-26 11:24 | CON.GU ---
Consult Consult Specialty:: Referred by:: Frida Reason for Consultation:: urinary retention - History of Present Illness Chief Complaint: SOB History of Present Illness: 73M w/ pmhx of BPH (s/p laser tx years ago), glaucoma presents to the ED with complaints of shortness of breath. States overnight, he became acutely short of breath which woke him up from sleep. Per EMR, he went to urgent care, had a chest xray done that showed "fluid in the lungs" and was then advised to go to the ED. Denies ever having these symptoms in the past. Also denies having dyspnea on exertion. Pt admits to needing 2 pillows to sleep to help with his breathing, but this has been going on for years. At baseline, pt is very active , lives with his son at home and walks outside on a daily basis without the use of any assistive devices. Additionally, pt reports having a 1 week history of non-productive cough. Denies fever/chills, nausea/vomiting, sore throat, abd pain, or bowel symptoms. He does endorse having a chronic problem of urinary incontinence especially at night; says he wakes up in the morning drenched in his urine but denies having incontinence throughout the day. cons req. ER course was notable for: (1) ECG showed sinus tachycardia at 126/minute, LVH, intermittent PVCs; nonspecific T wave abnormalities - anterior infarct, age undetermined (2) IV Lasix 20 mg given (3) Recent Travel: Denies PAST MEDICAL HISTORY: As per HPI PAST SURGICAL HISTORY: Syndactyly repair w/ skin grafting Drainage of L hydrocele Social History: Smoking: Former smoker; quit 7 years ago. 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: Alzheimer's, CVA, Dementia, Migraine, Multiple Sclerosis, Peripheral Neuropathy, Parkinson's, Seizure, Syncope, TIA, Vertigo, Other Cardio/Vascular: No: AFIB, Aneurysm, Aortic Insufficiency, Aortic Stenosis, CAD , CHF, Deep Vein Thrombosis, HTN, Hyperlipdemia, [place], Mitral Insufficiency, Mitral Stenosis, Murmur, Pulmonary Hypertension, Other Pulmonary: Yes: Other (suspected COPD) Gastrointestinal: No: Ascites, Cancer, Constipation, Crohn's Disease, Diverticulitis, Diverticulosis, Esophageal Varices, Gastritis, GERD, GI Bleed, Hemorrhoids, Hiatal Hernia, Inflamatory Bowel Disease, Irritable Bowel Disease, Pancreatitis, Peptic Ulcer Disease, Ulcerative Colitis, Other Hepatobiliary: No: Cirrhosis, Cholelithiasis, Cholecystitis, Choledocholithiasis , Hepatitis A, Hepatitis B, Hepatitis C, Other Renal/: No: Renal Failure, Renal Inusuff, BPH, Cancer, Hematuria, Hemodialysis , Neurogenic Bladder, Renal Calculi, UTI, Other Infectious Disease: No: AIDS, C-Diff, Herpes Zoster, HIV, MRSA, STD's, Tuberculosis, VREF, Other Psych: No: Addictions, Anxiety, Bipolar, Depression, Panic, Psychosis, Schizophrenia, Other Musculoskeletal: No: Bursitis, Chronic low back pain, Hemiparesis, Hemiplegia, Osteoarthritis, Paraplegia, Other Rheumatology: No: Fibromyalgia, Gout, Lupus, Rheumatoid Arthritis, Sarcoidosis, Vasculitis, Other ENT: No: Allergic Rhinitis, Sinusitis, Other Endocrine: No: Albany's Disease, Angier's Disease, Diabetes Insipidus, Diabetes Mellitus, Hyperparathyroidism, Hyperthyroidism, Hypothyroidism, Osteopenia, SIADH, Other Dermatology: No: Basal Cell, Cellulitis, Eczema, Melanoma, Psoriasis, Squamous Cell, Other - Past Surgical History Past Surgical History: No: None, AAA Repair, AICD, Amputation, Appendectomy, Arthrosocopy, AV Fistula/Graft, Bariatric Surgery, Breast Biopsy, Bypass, CABG, Carotid Endarterectomy, Cataract Removal, Cholecystectomy, Colectomy, Colonoscopy, Colostomy, Craniotomy, , Cystectomy, Hernia Repair, Hysterectomy, Ileal Conduit, Ileosotomy, Joint Replacement, Kidney Transplant, Laminectomy, Liver Transplant, Mastectomy, Nephrectomy, Oopherectomy, Orchiectomy, Permanent Pacemaker, Prostatectomy, Splenectomy, Stent, Thoracotomy , TURP, Tonsillectomy, Tubal Ligation, Upper Endoscopy, Valve Replacement, Vasectomy, Vein Stripping/Ligation - Alcohol/Substance Use Hx Alcohol Use: No - Smoking History Smoking history: Former smoker Have you smoked in the past 12 months: No Aproximately how many cigarettes per day: 7 If you are a former smoker, when did you quit?: 7 years ago - Social History Usual Living Arrangement: With Spouse History of Recent Travel: No Home Medications - Allergies Allergies/Adverse Reactions: Allergies Allergy/AdvReac Type Severity Reaction Status Date / Time No Known Allergies Allergy Verified 05/25/19 18:47 - Home Medications Home Medications: Ambulatory Orders NK [No Known Home Medication] 05/25/19 Review of Systems - Review of Systems Genitourinary: reports: Incontinence (nocturnal) Physical Exam- Vital Signs: Vital Signs Temperature 98.1 F 05/26/19 09:13 Pulse Rate 101 H 05/26/19 09:13 Respiratory Rate 18 05/26/19 09:13 Blood Pressure 144/68 05/26/19 09:13 O2 Sat by Pulse Oximetry (%) 97 05/26/19 06:00 Gastrointestinal: Yes: WNL Renal/: Yes: WNL Kidneys: Yes: WNL Pelvis: Yes: WNL Testicles: Yes: WNL Scrotum: Yes: WNL Penis: Yes: WNL Prostate Exam: Yes: Swollen Labs: CBC, BMP 05/26/19 06:38 05/26/19 06:38 Problem List - Problems (1) Urinary retention Assessment/Plan: mccracken , tamsulosin, f/u in my office after disch for cystscopy, trus and urodynamics. Code(s): R33.9 - RETENTION OF URINE, UNSPECIFIED (2) BPH associated with nocturia Code(s): N40.1 - BENIGN PROSTATIC HYPERPLASIA WITH LOWER URINARY TRACT SYMP; R35.1 - NOCTURIA (3) CHF (congestive heart failure) Code(s): I50.9 - HEART FAILURE, UNSPECIFIED
--- NOTE | 2019-05-26 12:08 | EKG ---
Test Reason : Blood Pressure : / mmHG Vent. Rate : 126 BPM Atrial Rate : 131 BPM P-R Int : 182 ms QRS Dur : 076 ms QT Int : 284 ms P-R-T Axes : 085 -04 079 degrees QTc Int : 411 ms SINUS TACHYCARDIA WITH OCCASIONAL and consecutive PREMATURE VENTRICULAR COMPLEXES ANTERIOR INFARCT , AGE UNDETERMINED ABNORMAL ECG WHEN COMPARED WITH ECG OF 21-JUL-2016 16:11, VENT. RATE HAS INCREASED BY 46 BPM ANTERIOR INFARCT IS NOW PRESENT T WAVE AMPLITUDE HAS INCREASED IN ANTERIOR LEADS NONSPECIFIC T WAVE ABNORMALITY, WORSE IN LATERAL LEADS Confirmed by JOSÉ NIEVES MD ([id number]) on 05/26/2019 12:08:21 PM Referred By: Confirmed By:JOSÉ NIEVES MD
--- NOTE | 2019-05-26 13:12 | CONSULT ---
Consult - text type - Consultation Consultation Note: Renal consult for renal cysts coverage for Dr. Terrazas This is a 73 year old gentleman with history of BPH and a former smoker who presented with shortness of breath and admitted for CHF exacerbation and found to have numerous renal cysts on CTA of the chest. Pt denies any history of kidney disease. Denies any family history of renal failure or PCKD. Denies any flank pain or hematuria. No Abd pain or feeling of abdominal fullness. No confusion, lethargy or weakness. SOB is improved. No leg swelling. CTA showed bilateral effusions. PMHx: as above Allergies: NKDA Family hx: NC Social Hx: Former smoker ROS: as per HPI, all other pertinent ros negative Home Medications Medication Instructions Recorded NK [No Known Home Medication] 05/25/19 Vital Signs Temperature 98.1 F 05/26/19 09:13 Pulse Rate 101 H 05/26/19 09:13 Respiratory Rate 18 05/26/19 10:00 Blood Pressure 144/68 05/26/19 09:13 O2 Sat by Pulse Oximetry (%) 94 L 05/26/19 10:00 Intake & Output 05/23/19 05/24/19 05/25/19 05/26/19 23:59 23:59 23:59 23:59 Intake Total 10 Output Total 2300 Balance -2290 Weight 79.379 kg 62.959 kg NAD awake and alert neck supple, no JVD RRR, no M/R CTA, no rales or wheeze soft NT/ND, no guarding no CVA tenderness no LE edema, clubbing or cyanosis no focal neurologic deficits CBC, BMP 05/26/19 06:38 05/26/19 06:38 Current Medications Furosemide (Lasix Injection -) 40 mg IVPUSH DAILY [facility] Last Admin: 05/26/19 10:01 Dose: 40 mg Heparin Sodium (Porcine) (Heparin -) 5,000 unit SQ BID [facility] Last Admin: 05/26/19 09:39 Dose: 5,000 unit 73 year old gentleman with history of BPH and a former smoker who presented with shortness of breath and admitted for CHF exacerbation and found to have numerous renal cysts on CTA of the chest. 1. Acquired Renal cysts 2. CHF/CAD 3. Urinary retention, hx of BPH Pt does not have AD polycystic kidney given preserved eGFR at age 73. He does not have any blood in urine to suggest hemorrhagic cysts or infected cysts no further inpatient work up of cysts needed would consider outpatient MRI with and w/o contrast to better characterize the cysts continue flomax lasix as per cardiology Thank you Gabriel Jo DO
--- NOTE | 2019-05-26 13:30 | PN ---
Progress Note (short form) - Note Progress Note: SUBJECTIVE: Feeling much better, dyspnea improved. No CP/abdominal pain OBJECTIVE: Afebrile, Hemodynamically Stable. Last Vital Signs Temp Pulse Resp BP Pulse Ox 98.1 F 101 H 18 144/68 94 L 05/26/19 09:13 05/26/19 09:13 05/26/19 10:00 05/26/19 09:13 05/26/19 10:00 HEENT - Atraumatic, normocephalic. Heart - S1, S2, RRR Lungs - decreased air entry bilateral lower zones. Abdomen - soft, non-tender. Bowel Sounds normal. Extremities - No edema, no calf tenderness. Neuro - AAO x 3. Tone/Power normal all extremities. Laboratory Results - last 24 hr 05/25/19 05/25/19 05/25/19 18:27 18:32 18:32 WBC 7.4 RBC 4.82 Hgb 14.3 Hct 43.0 D MCV 89.4 MCH 29.7 MCHC 33.2 RDW 14.4 Plt Count 287 D MPV 7.4 L D Absolute Neuts (auto) 5.8 Neutrophils % 78.8 Lymphocytes % 14.8 Monocytes % 5.3 Eosinophils % 0.5 Basophils % 0.6 Nucleated RBC % 0 PT with INR INR PTT (Actin FS) D-Dimer 944 H Sodium 137 Potassium 4.3 Chloride 102 Carbon Dioxide 25 Anion Gap 10 BUN 24.2 H Creatinine 1.3 Est GFR (CKD-EPI)AfAm 62.74 Est GFR (CKD-EPI)NonAf 54.13 Random Glucose 108 H Calcium 9.2 Phosphorus Magnesium Total Bilirubin 0.6 AST 32 ALT 29 Alkaline Phosphatase 95 Creatine Kinase Creatine Kinase Index CK-MB (CK-2) Troponin I B-Natriuretic Peptide Total Protein 7.5 Albumin 4.0 Urine Color Urine Appearance Urine pH Ur Specific [place] Urine Protein Urine Glucose (UA) Urine Ketones Urine Blood Urine Nitrite Urine Bilirubin Urine Urobilinogen Ur Leukocyte Esterase Influenza A (Rapid) Influenza B (Rapid) 05/25/19 05/25/19 05/26/19 18:32 18:37 03:00 WBC RBC Hgb Hct MCV MCH MCHC RDW Plt Count MPV Absolute Neuts (auto) Neutrophils % Lymphocytes % Monocytes % Eosinophils % Basophils % Nucleated RBC % PT with INR 10.90 INR 0.92 PTT (Actin FS) 36.0 D-Dimer Sodium Potassium Chloride Carbon Dioxide Anion Gap BUN Creatinine Est GFR (CKD-EPI)AfAm Est GFR (CKD-EPI)NonAf Random Glucose Calcium Phosphorus Magnesium Total Bilirubin AST ALT Alkaline Phosphatase Creatine Kinase 311 H Creatine Kinase Index 4.5 CK-MB (CK-2) 14.1 H Troponin I 0.03 B-Natriuretic Peptide 7534.8 H Total Protein Albumin Urine Color Urine Appearance Urine pH Ur Specific [place] Urine Protein Urine Glucose (UA) Urine Ketones Urine Blood Urine Nitrite Urine Bilirubin Urine Urobilinogen Ur Leukocyte Esterase Influenza A (Rapid) Negative Influenza B (Rapid) Negative 05/26/19 05/26/19 05/26/19 03:00 06:38 06:38 WBC 7.0 RBC 4.13 Hgb 12.4 Hct 36.6 MCV 88.6 MCH 30.1 MCHC 33.9 RDW 14.3 Plt Count 238 MPV 7.3 L Absolute Neuts (auto) 5.7 Neutrophils % 81.9 Lymphocytes % 12.3 Monocytes % 5.3 Eosinophils % 0.1 Basophils % 0.4 Nucleated RBC % 0 PT with INR INR PTT (Actin FS) D-Dimer Sodium 135 L Potassium 3.9 Chloride 101 Carbon Dioxide 25 Anion Gap 9 BUN 23.1 H Creatinine 1.3 Est GFR (CKD-EPI)AfAm 62.74 Est GFR (CKD-EPI)NonAf 54.13 Random Glucose 100 Calcium 8.1 L Phosphorus 4.3 Magnesium 2.0 Total Bilirubin 0.9 AST 28 ALT 24 Alkaline Phosphatase 77 Creatine Kinase Creatine Kinase Index CK-MB (CK-2) Troponin I B-Natriuretic Peptide Total Protein 6.2 L Albumin 3.2 L Urine Color Yellow Urine Appearance Clear Urine pH 6.5 Ur Specific [place] 1.011 Urine Protein Negative Urine Glucose (UA) Negative Urine Ketones Negative Urine Blood Negative Urine Nitrite Negative Urine Bilirubin Negative Urine Urobilinogen 0.2 Ur Leukocyte Esterase Negative Influenza A (Rapid) Influenza B (Rapid) 05/26/19 06:38 WBC RBC Hgb Hct MCV MCH MCHC RDW Plt Count MPV Absolute Neuts (auto) Neutrophils % Lymphocytes % Monocytes % Eosinophils % Basophils % Nucleated RBC % PT with INR INR PTT (Actin FS) D-Dimer Sodium Potassium Chloride Carbon Dioxide Anion Gap BUN Creatinine Est GFR (CKD-EPI)AfAm Est GFR (CKD-EPI)NonAf Random Glucose Calcium Phosphorus Magnesium Total Bilirubin AST ALT Alkaline Phosphatase Creatine Kinase Creatine Kinase Index CK-MB (CK-2) Troponin I 0.05 B-Natriuretic Peptide Total Protein Albumin Urine Color Urine Appearance Urine pH Ur Specific [place] Urine Protein Urine Glucose (UA) Urine Ketones Urine Blood Urine Nitrite Urine Bilirubin Urine Urobilinogen Ur Leukocyte Esterase Influenza A (Rapid) Influenza B (Rapid) Current Medications Generic Name Dose Route Start Last Admin Trade Name Anna PRN Reason Stop Dose Admin Furosemide 40 mg 05/25/19 22:00 05/26/19 10:01 Lasix Injection - IVPUSH 40 mg DAILY [facility] Administration Heparin Sodium (Porcine) 5,000 unit 05/25/19 22:00 05/26/19 09:39 Heparin - SQ 5,000 unit BID [facility] Administration Home Medications Medication Instructions Recorded NK [No Known Home Medication] 05/25/19 ASSESSMENT/PLAN: 73 year old male with BPH and urinary incontinence at night, Glaucoma, former smoker, presents to the ED with complaints of shortness of breath which awoke him from sleep, referred to the ED with congestion on CXR done at urgent care. CTA Chest - no PE, moderate bilateral pleural effusions, 1cm L pleural nodule, R pleural nodules (5mm, 7mm) CT A/P - Distended urinary bladder with diverticuli, bilateral renal cysts, distension of GB, Dilated CBD, Liver cysts, Duodenal Diverticulum. 1. Acute Heart Failure with bilateral pleural effusions Elevated BNP CXR - congestive changes, CTA chest - moderate bilateral effusions. Responding well to IV lasix diuresis Echo Cardiology consulted - for ischemic evaluation with MIBI once stable. Monitor I/Os, Daily weights. 2. Distended Urinary Bladder with Diverticuli with history of BPH Has nocturnal urinary incontinence CT A/P - distended urinary bladder with diverticuli s/p mccracken placement. Urology consulted - recommend Tamsulosin, with out-patient follow up for Cystoscopy/TRUS/Urodynamic Studies. 3. Distended GB, Dilated CBD, Liver Cysts, Duodenal Diverticulum, all incidental findings on CT - for GI evaluation ?MRCP ?GI Series. 4. Bilateral Renal Cysts - Urology consulted. 5. Multiple Pleural Nodules, ex-smoker - for out-patient Pulmonary referral. DVT Px - Heparin SQ. Visit type - Emergency Visit Emergency Visit: Yes ED Registration Date: 05/25/19 Care time: The patient presented to the Emergency Department on the above date and was hospitalized for further evaluation of their emergent condition. - New Patient This patient is new to me today: Yes Date on this admission: 05/26/19 - Critical Care Critical Care patient: No - Discharge Referral Referred to [facility] Med P.C.: No
[2019-05-26] MEDS: TAMSULOSIN HCL 0.4 MG CAP PO SCH (13:59)
[2019-05-27 07:19] LABS: BLOOD UREA NITROGEN 24.1 mg/dL (7-18); CALCIUM 8.6 mg/dL (8.5-10.1); CREATININE 1.3 mg/dL (0.55-1.3); MAGNESIUM 2.2 mg/dL (1.8-2.4); POTASSIUM 3.7 mmol/L (3.5-5.1)
[2019-05-27] MEDS: FUROSEMIDE 40 MG/4 ML INJECTABLE VIAL IVPUSH SCH (11:04)
[2019-05-27] MEDS: HEPARIN NA (PORCINE) 5,000 UNITS/ML 1ML VIAL SQ SCH ×2 (11:04→22:07)
[2019-05-27] MEDS: TAMSULOSIN HCL 0.4 MG CAP PO SCH (11:04)
--- NOTE | 2019-05-27 11:20 | ECHO ---
Name: ROBERT AMIN Exam:Adult Echocardiogram Study Date: 05/27/2019 09:52 AM Age: 73 yrs Reason For Study: KATERINA, R/O ABN Wall Motion Height: 74 in Weight: 175 lb BSA: 2.1 m2 MMode/2D Measurements & Calculations IVSd: 0.98 cm Ao root diam: 3.5 cm LVIDd: 5.6 cm LA dimension: 3.0 cm LVIDs: 5.2 cm LVPWd: 1.1 cm LVPWs: 1.6 cm EDV(Teich): 156.5 ml ESV(Teich): 127.4 ml LVOT diam: 2.5 cm LVLd ap4: 8.2 cm EDV(MOD-sp4): 187.0 ml LVLs ap4: 7.1 cm ESV(MOD-sp4): 101.0 ml SV(MOD-sp4): 86.0 ml RV S Rafa: 16.2 cm/sec Doppler Measurements & Calculations MV E max rafa: 90.7 cm/sec Ao V2 max: 113.0 cm/sec MV A max rafa: 121.7 cm/sec Ao max P.2 mmHg MV E/A: 0.74 AI P1/2t: 313.1 msec MV dec time: 0.14 sec AI max rafa: 374.9 cm/sec MR max rafa: 467.4 cm/sec AI max P.3 mmHg MR max P.4 mmHg AI dec slope: 350.7 cm/sec2 TR max rafa: 232.9 cm/sec PA V2 max: 107.1 cm/sec TR max P.7 mmHg PA max P.6 mmHg Med Peak E' Rafa: 4.2 cm/sec Med E/e': 21.4 Lat Peak E' Rafa: 5.1 cm/sec Lat E/e': 17.7 Procedure Study Quality: Fair. Left Ventricle The left ventricle is mildly dilated. Left ventricular systolic function is severely reduced. Ejectio n Fraction = 30%. Suggestive of elevated EDP/LA pressure. There is severe global hypokinesis of the lef t ventricle. Right Ventricle The right ventricle is normal size. The right ventricular systolic function is normal. Atria The left atrium is mildly dilated. Right atrial size is normal. Mitral Valve There is mild to moderate mitral valve thickening. There is mild mitral regurgitation. Tricuspid Valve The tricuspid valve is not well visualized, but is grossly normal. There is mild tricuspid regurgitat ion. Right ventricular systolic pressure is normal. Aortic Valve Mildly calcified. No hemodynamically significant valvular aortic stenosis. Mild to moderate aortic regurgitation. Pulmonic Valve The pulmonic valve is not well seen, but is grossly normal. Great Vessels Mild aortic root dilatation. Pericardium/Pleura There is no pericardial effusion. Interpretation Summary LV: Mildly dilated, severe global hypokinesia with some variablity, severely decreased sustolic funct ion, EF 30%, suggestive of elavated EDP/LAP RV: Normal LA: Mildly dilated Mildly calcified aortic valve with mild-moderate regurgitation Mild mitral regurgitation Mild tricuspid regurgitation with normal RVSP Mildly dilated aortic root 4 cm. Peri Benavidez 05/27/2019 11:20 AM
--- NOTE | 2019-05-27 12:15 | PN ---
Progress Note, Physician Chief Complaint: sob History of Present Illness: no more sob ("much better") denies swelling, cp, palp - Current Medication List Current Medications: Active Medications Furosemide (Lasix Injection -) 40 mg IVPUSH DAILY [facility] Last Admin: 05/27/19 11:04 Dose: 40 mg Heparin Sodium (Porcine) (Heparin -) 5,000 unit SQ BID [facility] Last Admin: 05/27/19 11:04 Dose: 5,000 unit Tamsulosin HCl (Flomax -) 0.4 mg PO DAILY@0830 [facility] Last Admin: 05/27/19 11:04 Dose: 0.4 mg - Objective Vital Signs: Vital Signs Temperature 98.1 F 05/27/19 05:44 Pulse Rate 80 05/27/19 05:44 Respiratory Rate 20 05/27/19 05:44 Blood Pressure 110/62 05/27/19 05:44 O2 Sat by Pulse Oximetry (%) 95 05/26/19 21:00 Constitutional: Yes: Well Nourished, No Distress, Calm Cardiovascular: Yes: Regular Rate and Rhythm, S1, S2. No: JVD, Gallop, Murmur Respiratory: Yes: Regular, CTA Bilaterally. No: Accessory Muscle Use, Rales, Wheezes Extremities: No: Cold Edema: No Neurological: Yes: Alert, Oriented Psychiatric: No: Agitated Labs: CBC, BMP 05/26/19 06:38 05/27/19 06:20 INR, PTT INR 0.92 (0.83-1.09) 05/25/19 18:32 Assessment/Plan IMP: Acute on chronic CHF (systolic vs diastolic ?) likely etiology of SOB Possible underlying CAD, based on ECG Suspected COPD, former smoker BPH with chronic urinary retention. Unclear trigger of CHF. REC: CHF/SOB: pleural effusions on CT -Improving with lasix 40 iv qd, wt coming down, labs stable--continue same. rpt CXR tomorrow, ? change to lasix PO 40 -Echo for EF assessment -Will need ischemic evaluation when euvolemic. -CTA no PE (bilat effusions) Suspected CAD: ECG w/ poor R wave progression/ possible old anteroseptal KS -Enzymes negative here -No overt ischemic sx -TnI negative -f/u echo -ischemia evaluation tomorrow ([facility]) Probable COPD: former smoker -outpt PFTs BPH: chronic urinary retention -takes no meds -Now with mccracken to help quantitate urine output and avoid retention -Consider starting Flomax, defer to PMD -Should have evaluation as outpt
--- NOTE | 2019-05-27 12:38 | PN ---
Progress Note, Physician History of Present Illness: Pt seen and examined at bedside. He is awake and alert. He denies shortness of breath. - Current Medication List Current Medications: Active Medications Furosemide (Lasix Injection -) 40 mg IVPUSH DAILY [facility] Last Admin: 05/27/19 11:04 Dose: 40 mg Heparin Sodium (Porcine) (Heparin -) 5,000 unit SQ BID [facility] Last Admin: 05/27/19 11:04 Dose: 5,000 unit Potassium Chloride (Potassium Chloride Oral Liquid) 40 meq PO ONCE ONE Stop: 05/27/19 12:20 Tamsulosin HCl (Flomax -) 0.4 mg PO DAILY@0830 [facility] Last Admin: 05/27/19 11:04 Dose: 0.4 mg - Objective Vital Signs: Vital Signs Temperature 98.1 F 05/27/19 05:44 Pulse Rate 80 05/27/19 05:44 Respiratory Rate 20 05/27/19 05:44 Blood Pressure 110/62 05/27/19 05:44 O2 Sat by Pulse Oximetry (%) 95 05/26/19 21:00 Constitutional: Yes: Calm Eyes: Yes: Conjunctiva Clear HENT: Yes: Atraumatic Neck: Yes: Supple Cardiovascular: Yes: S1, S2 Respiratory: Yes: CTA Bilaterally Gastrointestinal: Yes: Normal Bowel Sounds, Soft Genitourinary: Yes: WNL Musculoskeletal: Yes: WNL Edema: No Neurological: Yes: Oriented Psychiatric: Yes: Oriented Labs: CBC, BMP 05/26/19 06:38 05/27/19 06:20 INR, PTT INR 0.92 (0.83-1.09) 05/25/19 18:32 Assessment/Plan Current Medications Generic Name Dose Route Start Last Admin Trade Name Remingtonq PRN Reason Stop Dose Admin Furosemide 40 mg 05/25/19 22:00 05/27/19 11:04 Lasix Injection - IVPUSH 40 mg DAILY [facility] Administration Heparin Sodium (Porcine) 5,000 unit 05/25/19 22:00 05/27/19 11:04 Heparin - SQ 5,000 unit BID [facility] Administration Potassium Chloride 40 meq 05/27/19 12:19 Potassium Chloride Oral Liquid PO 05/27/19 12:20 ONCE ONE Tamsulosin HCl 0.4 mg 05/26/19 13:38 05/27/19 11:04 Flomax - PO 0.4 mg DAILY@0830 [facility] Administration 1. renal cysts 2. CHF 3. Urinary retention 4. CAD 5. BPH Plan - will need to quantify number of cysts - avoid nephrotoxins - can get outpt non contrast mri - continue flomax - lasix as per cardiology
[2019-05-27] MEDS ORDERED: POTASSIUM CHLORIDE ORAL LIQUID 20 MEQ/15 ML PO ONE (13:00)
--- NOTE | 2019-05-27 13:01 | PN ---
Progress Note (short form) - Note Progress Note: F/U pt w/o c/o, being diuresed Afeb, VSS mccracken drains clear yellow urine tolerating tamsulosin will remove mccracken for tial of void Problem List - Problems (1) Urinary retention Code(s): R33.9 - RETENTION OF URINE, UNSPECIFIED (2) BPH associated with nocturia Code(s): N40.1 - BENIGN PROSTATIC HYPERPLASIA WITH LOWER URINARY TRACT SYMP; R35.1 - NOCTURIA (3) CHF (congestive heart failure) Code(s): I50.9 - HEART FAILURE, UNSPECIFIED
--- NOTE | 2019-05-27 13:47 | PN ---
Teaching Attending Note Name of Resident: Michael Hart ATTENDING PHYSICIAN STATEMENT I saw and evaluated the patient. I reviewed the resident's note and discussed the case with the resident. I agree with the resident's findings and plan as documented. SUBJECTIVE: Feeling much better, dyspnea improved. No CP/abdominal pain OBJECTIVE: Afebrile, Hemodynamically Stable. Last Vital Signs Temp Pulse Resp BP Pulse Ox 98.1 F 80 20 110/62 95 05/27/19 05:44 05/27/19 05:44 05/27/19 05:44 05/27/19 05:44 05/26/19 21:00 Heart - S1, S2, RRR Lungs - decreased air entry bilateral lower zones. Abdomen - soft, non-tender. Bowel Sounds normal. Extremities - No edema, no calf tenderness. Neuro - AAO x 3. Tone/Power normal all extremities. Laboratory Results - last 24 hr 05/27/19 06:20 Sodium 137 Potassium 3.7 Chloride 102 Carbon Dioxide 28 Anion Gap 7 L BUN 24.1 H Creatinine 1.3 Est GFR (CKD-EPI)AfAm 62.74 Est GFR (CKD-EPI)NonAf 54.13 Random Glucose 98 Calcium 8.6 Magnesium 2.2 Current Medications Generic Name Dose Route Start Last Admin Trade Name Freq PRN Reason Stop Dose Admin Furosemide 40 mg 05/25/19 22:00 05/27/19 11:04 Lasix Injection - IVPUSH 40 mg DAILY [facility] Administration Heparin Sodium (Porcine) 5,000 unit 05/25/19 22:00 05/27/19 11:04 Heparin - SQ 5,000 unit BID [facility] Administration Tamsulosin HCl 0.4 mg 05/26/19 13:38 05/27/19 11:04 Flomax - PO 0.4 mg DAILY@0830 [facility] Administration Home Medications Medication Instructions Recorded NK [No Known Home Medication] 05/25/19 ASSESSMENT/PLAN: 73 year old male with BPH and urinary incontinence at night, Glaucoma, former smoker, presents to the ED with complaints of shortness of breath which awoke him from sleep, referred to the ED with congestion on CXR done at urgent care. CTA Chest - no PE, moderate bilateral pleural effusions, 1cm L pleural nodule, R pleural nodules (5mm, 7mm) CT A/P - Distended urinary bladder with diverticuli, bilateral renal cysts, distension of GB, Dilated CBD, Liver cysts, Duodenal Diverticulum. 1. Acute Systolic Heart Failure with bilateral pleural effusions Elevated BNP CXR - congestive changes, CTA chest - moderate bilateral effusions. Responding well to IV lasix diuresis Echo - global hypokinesis with severely depressed EF 30%, aortic root dilatation 4cm. Cardiology following - for repeat CXR in AM and possible transition to oral Lasix then. For ischemic evaluation with MIBI once stable. Monitor I/Os, Daily weights. Will discuss with Cardio re: need for initiation of HF meds including BB, Spironolactone, KASEY/ARB, or Entresto as well as need for Lifevest/AICD in the future given chronically depressed EF. 2. Distended Urinary Bladder with Diverticuli with history of BPH Has nocturnal urinary incontinence CT A/P - distended urinary bladder with diverticuli s/p mccracken placement. Urology consulted - recommend Tamsulosin, with out-patient follow up for Cystoscopy/TRUS/Urodynamic Studies. TOV today. 3. Distended GB, Dilated CBD, Liver Cysts, Duodenal Diverticulum, all incidental findings on CT - for GI evaluation ?MRCP ?GI Series. 4. Bilateral Renal Cysts - Nephrology/Urology following 5. Multiple Pleural Nodules, ex-smoker - for out-patient Pulmonary referral. DVT Px - Heparin SQ.
--- NOTE | 2019-05-27 16:21 | PN ---
Physical Exam: SUBJECTIVE: Patient seen and examined. No acute events noted. Pt denies any symptoms. OBJECTIVE: Vital Signs Period Temp Pulse Resp BP Sys/Edwards Pulse Ox Last 24 Hr 97.2 F-98.1 F 65-86 18-22 110-136/55-71 95 GENERAL: The patient is awake, alert, and fully oriented, in no acute distress. Mccracken to beg in place, good urine output. NECK: supple. LUNGS: Breath sounds equal, clear to auscultation bilaterally, no wheezes, no crackles, no accessory muscle use. HEART: Regular rate and rhythm, S1, S2 without murmur, rub or gallop. ABDOMEN: Soft, nontender, nondistended, normoactive bowel sounds. EXTREMITIES: 2+ pulses, warm, well-perfused, no edema. Laboratory Results - last 24 hr 05/27/19 06:20 Sodium 137 Potassium 3.7 Chloride 102 Carbon Dioxide 28 Anion Gap 7 L BUN 24.1 H Creatinine 1.3 Est GFR (CKD-EPI)AfAm 62.74 Est GFR (CKD-EPI)NonAf 54.13 Random Glucose 98 Calcium 8.6 Magnesium 2.2 Active Medications Generic Name Dose Route Start Last Admin Trade Name Freq PRN Reason Stop Dose Admin Furosemide 40 mg 05/25/19 22:00 05/27/19 11:04 Lasix Injection - IVPUSH 40 mg DAILY [facility] Administration Heparin Sodium (Porcine) 5,000 unit 05/25/19 22:00 05/27/19 11:04 Heparin - SQ 5,000 unit BID [facility] Administration Tamsulosin HCl 0.4 mg 05/26/19 13:38 05/27/19 11:04 Flomax - PO 0.4 mg DAILY@0830 [facility] Administration ASSESSMENT/PLAN: 73 year old male with BPH and urinary incontinence at night, Glaucoma, former smoker, presents to the ED with complaints of shortness of breath which awoke him from sleep, referred to the ED with congestion on CXR done at urgent care. CTA Chest - no PE, moderate bilateral pleural effusions, 1cm L pleural nodule, R pleural nodules (5mm, 7mm) CT A/P - Distended urinary bladder with diverticuli, bilateral renal cysts, distension of GB, Dilated CBD, Liver cysts, Duodenal Diverticulum. #Acute Systolic Heart Failure with bilateral pleural effusions Elevated BNP CXR - congestive changes, CTA chest - moderate bilateral effusions. Responding well to IV lasix diuresis Echo - global hypokinesis with severely depressed EF 30%, aortic root dilatation 4cm. Cardiology following - for repeat CXR in AM and possible transition to oral Lasix then. For ischemic evaluation with MIBI once stable. Monitor I/Os, Daily weights. Will discuss with Cardio need for initiation of HF meds including BB, Spironolactone, KASEY/ARB, or Entresto as well as need for Lifevest/AICD in the future given depressed EF. #Distended Urinary Bladder with Diverticuli with history of BPH Has nocturnal urinary incontinence - started on flomax 0.4 CT A/P - distended urinary bladder with diverticuli s/p mccracken placement. Urology consulted- can dc mccracken with trial of voiding, with out-patient follow up for Cystoscopy/TRUS/Urodynamic Studies. #Distended GB, Dilated CBD, Liver Cysts, Duodenal Diverticulum, all incidental findings on CT - for GI evaluation ?MRCP ?GI Series. - awating GI recs Ania recommending MRCP for further biliary tree eval #Bilateral Renal Cysts - Nephrology/Urology following - f/u MRI as o/p for bosniak staging #Multiple Pleural Nodules, ex-smoker - for out-patient Pulmonary referral. DVT Px - Heparin SQ. Visit type - Emergency Visit Emergency Visit: No - New Patient This patient is new to me today: Yes Date on this admission: 05/27/19 - Critical Care Critical Care patient: No - Discharge Referral Referred to [facility] No ATTENDING PHYSICIAN STATEMENT I saw and evaluated the patient. I reviewed the resident's note and discussed the case with the resident. I agree with the resident's findings and plan as documented. SUBJECTIVE: OBJECTIVE: ASSESSMENT AND PLAN:
--- NOTE | 2019-05-27 18:04 | PN ---
Progress Note (short form) - Note Progress Note: GI CONSULT DICTATED MRCP ORDERED
--- NOTE | 2019-05-27 18:35 | CONS ---
GASTROINTESTINAL CONSULTATION DATE OF CONSULTATION: DATE OF DICTATION: 05/27/2019 HISTORY: Patient is a 73-year-old male with a past medical history of BPH, laser treatment, glaucoma who presents to the hospital with complaints of shortness of breath as well as a cough. He was admitted with a diagnosis of new onset CHF exacerbation and urinary retention. During the course, he underwent a CTA of the chest and thorax, which revealed multiple cysts in the liver the largest measuring 3 cm. Also duodenal diverticulum on an imaging study and dilation of the common bile duct. As per the patient, he denies any abdominal pain, nausea, vomiting, hematemesis, melena, hematochezia, weight loss. He has never had a colonoscopy or upper endoscopy and is currently refusing. He denies a history of liver disease. PAST MEDICAL HISTORY: As listed in the HPI. PAST SURGICAL HISTORY: As listed in the HPI with the addition of repair with skin grafting and drainage of a left hydrocele. SOCIAL HISTORY: He is a former smoker. Quit 7 years ago. Previously smoked 1 pack per day for 50 years. Denies any drugs or alcohol use. ALLERGIES: No known drug allergies. HOME MEDICATIONS: Reviewed. REVIEW OF SYSTEMS: As per HPI. FAMILY HISTORY: No history of GI or gynecological malignancy. PHYSICAL EXAMINATION: Vital Signs: Temperature 97, pulse 84, blood pressure 125/71, respiratory rate 18, oxygen saturation 96% on room air. General: In no acute distress. HEENT: Anicteric sclerae. Cardiovascular: S1, S2. Regular rate and rhythm. Lungs: Bilaterally clear to auscultation. Abdomen: Soft, nontender. Extremities: No edema. LABORATORIES: White blood cell count 7, hemoglobin 12, hematocrit 36, MCV 88, platelet count 238, INR 0.92. Sodium 137, potassium 3.7, BUN 24, creatinine 1.3, total bilirubin 0.9, AST 28, ALT 24, alkaline phosphatase 77, creatinine kinase 311, albumin 3.2. Urine is negative. Influenza swabs are negative. Patient's abdomen CT scan is pending results. Again, the CTA revealed multiple cysts in the liver largest measuring 3 cm. Possible duodenal diverticulum. Also pancreas and adrenal glands were grossly unremarkable. Significant distention of the gallbladder was also seen with dilation of the common bile duct and also with kidney cysts. IMPRESSION: Dilated common bile duct as well as multiple hepatic cysts on imaging of the chest. RECOMMENDATION: Follow up abdomen and pelvis CT scan. Would likely benefit from an MRCP to further evaluate the biliary tree. I doubt he has any acute cholecystitis considering his abdominal exam is within normal limits. His liver tests are also normal. These are likely benign cysts. Trend liver tests daily while hospitalized. Follow up CT scan. We will order MRCP for completeness. DO DANIS FERNANDEZ/[id number]
[2019-05-27 22:06] VITALS: BMI 17.2
[2019-05-28 08:06] LABS: BASO % 0.6 % (0-2.0); EOS % 2.4 % (0-4.5); HEMATOCRIT 35.3 % (35.4-49); HEMOGLOBIN 11.8 GM/dL (11.7-16.9); LYMPH % 25.9 % (8-40); MCH 29.5 pg (25.7-33.7); MCHC 33.5 g/dl (32.0-35.9); MEAN CELL VOLUME 88.1 fl (80-96); MEAN PLT VOLUME 7.4 fl (7.5-11.1); MONO % 8.7 % (3.8-10.2); NEUT % 62.4 % (42.8-82.8); PLATELET COUNT 220 K/MM3 (134-434); RDW 14.1 % (11.9-15.9); WHITE BLOOD COUNT 5.3 K/mm3 (4.0-10.0)
[2019-05-28 08:34] LABS: BILIRUBIN,TOTAL 0.9 mg/dL (0.2-1); BLOOD UREA NITROGEN 24.3 mg/dL (7-18); CALCIUM 8.1 mg/dL (8.5-10.1); CREATININE 1.2 mg/dL (0.55-1.3); POTASSIUM 3.9 mmol/L (3.5-5.1); TOT PROT 5.8 g/dl (6.4-8.2)
[2019-05-28] MEDS: TAMSULOSIN HCL 0.4 MG CAP PO SCH (09:57)
[2019-05-28] MEDS: HEPARIN NA (PORCINE) 5,000 UNITS/ML 1ML VIAL SQ SCH ×2 (09:57→21:50)
[2019-05-28] MEDS: FUROSEMIDE 40 MG/4 ML INJECTABLE VIAL IVPUSH SCH (09:57)
[2019-05-28] MEDS ORDERED: REGADENOSON 0.4 MG/5 ML PRE-FILLED SYRINGE IVPUSH ONE ×2 (10:15)
--- NOTE | 2019-05-28 11:14 | PN ---
Progress Note (short form) - Note Progress Note: s: no chest pain, palps, dizziness, edema. Dyspnea improved. Current Medications Furosemide (Lasix Injection -) 40 mg IVPUSH DAILY [facility] Last Admin: 05/28/19 09:57 Dose: 40 mg Heparin Sodium (Porcine) (Heparin -) 5,000 unit SQ BID [facility] Last Admin: 05/28/19 09:57 Dose: 5,000 unit Tamsulosin HCl (Flomax -) 0.4 mg PO DAILY@0830 [facility] Last Admin: 05/28/19 09:57 Dose: 0.4 mg Vital Signs Period Temp Pulse Resp BP Sys/Edwards Pulse Ox Last 24 Hr 98 F-98.2 F 84-88 18-18 125-126/55-71 96 Constitutional: Yes: Well Nourished, No Distress, Calm Cardiovascular: Yes: Regular Rate and Rhythm, S1, S2. No: JVD, Gallop, Murmur Respiratory: Yes: Regular, CTA Bilaterally. No: Accessory Muscle Use, Rales, Wheezes Extremities: No: Cold Edema: No Neurological: Yes: Alert, Oriented Psychiatric: No: Agitated no jaundice, diaphoresis not agitated echo 05/2019 mildly dilated LV with severe global hypokinesis, EF 30%, elevated EDP/LAP suggested, mildly dilated LA, mildly calcified aortic valve with mild to mod regurg, mild MR, mild TR, mildly dilated aortic root 4 cm Assessment/Plan IMP: Acute on chronic CHF (systolic vs diastolic ?) likely etiology of SOB Possible underlying CAD, based on ECG Suspected COPD, former smoker BPH with chronic urinary retention. REC: acute systolic heart failure -Improving with lasix 40 iv qd, wt coming down, labs stable - CXR shows improvement, breathing near baseline - change lasix to 40 mg PO daily - plan for mibi today for ischemic eval -Echo shows dilated cardiomyopathy - EF 30% - start metoprolol succinate 25 mg daily, lisinopril 2.5 mg daily Suspected CAD: ECG w/ poor R wave progression/ possible old anteroseptal CT -Enzymes negative here -No overt ischemic sx -TnI negative -ischemia evaluation today (a[facility]) Probable COPD: former smoker -outpt PFTs BPH: chronic urinary retention -takes no meds -Now with mccracken to help quantitate urine output and avoid retention - removed today for void trial -Consider starting Flomax, defer to PMD -Should have evaluation as outpt
--- NOTE | 2019-05-28 11:53 | PN ---
Physical Exam: SUBJECTIVE: Patient seen and examined. No acute events noted overnight, afebrile asymptomatic. OBJECTIVE: Vital Signs Period Temp Pulse Resp BP Sys/Edwards Pulse Ox Last 24 Hr 98 F-98.2 F 84-88 18-18 125-126/55-71 96 GENERAL: The patient is awake, alert, and fully oriented, in no acute distress. Mccracken removed, awaiting void on his own. NECK: supple. LUNGS: Breath sounds equal, clear to auscultation bilaterally, no wheezes, no crackles, no accessory muscle use. HEART: Regular rate and rhythm, S1, S2 without murmur, rub or gallop. ABDOMEN: Soft, nontender, nondistended, normoactive bowel sounds. EXTREMITIES: 2+ pulses, warm, well-perfused, no edema. Laboratory Results - last 24 hr 05/28/19 05/28/19 05:30 05:30 WBC 5.3 RBC 4.00 Hgb 11.8 Hct 35.3 L MCV 88.1 MCH 29.5 MCHC 33.5 RDW 14.1 Plt Count 220 MPV 7.4 L Absolute Neuts (auto) 3.3 Neutrophils % 62.4 D Lymphocytes % 25.9 D Monocytes % 8.7 Eosinophils % 2.4 D Basophils % 0.6 Nucleated RBC % 0 Sodium 138 Potassium 3.9 Chloride 103 Carbon Dioxide 26 Anion Gap 8 BUN 24.3 H Creatinine 1.2 Est GFR (CKD-EPI)AfAm 69.11 Est GFR (CKD-EPI)NonAf 59.63 Random Glucose 89 Calcium 8.1 L Total Bilirubin 0.9 AST 27 ALT 22 Alkaline Phosphatase 72 Total Protein 5.8 L Albumin 3.0 L Active Medications Generic Name Dose Route Start Last Admin Trade Name Freq PRN Reason Stop Dose Admin Furosemide 40 mg 05/29/19 10:00 Lasix - PO DAILY [facility], [facility] Heparin Sodium (Porcine) 5,000 unit 05/25/19 22:00 05/28/19 09:57 Heparin - SQ 5,000 unit BID [facility] Administration Lisinopril 2.5 mg 05/28/19 12:00 Prinivil PO 05/28/19 12:01 ONCE ONE Metoprolol Succinate 25 mg 05/28/19 12:00 Toprol Xl - PO DAILY [facility] Tamsulosin HCl 0.4 mg 05/26/19 13:38 05/28/19 09:57 Flomax - PO 0.4 mg DAILY@0830 [facility] Administration ASSESSMENT/PLAN: 73 year old male with BPH and urinary incontinence at night, Glaucoma, former smoker, presents to the ED with complaints of shortness of breath which awoke him from sleep, referred to the ED with congestion on CXR done at urgent care. CTA Chest - no PE, moderate bilateral pleural effusions, 1cm L pleural nodule, R pleural nodules (5mm, 7mm) CT A/P - Distended urinary bladder with diverticuli, bilateral renal cysts, distension of GB, Dilated CBD, Liver cysts, Duodenal Diverticulum. #Acute Systolic Heart Failure with bilateral pleural effusions Elevated BNP CXR - congestive changes improved. Echo - global hypokinesis with severely depressed EF 30%, aortic root dilatation 4cm. Dilated cardiomyopathy Cardiology following- For ischemic evaluation with MIBI today will f/u results Monitor I/Os, Daily weights. Weight improved today will switch to 40 PO lasix given rpt CXR today improved. Will start pt on metoprolol 25 daily and lisinopril 2.5 daily for his CHFrEF. #Distended Urinary Bladder with Diverticuli with history of BPH Had nocturnal urinary incontinence, improved with flomax - c/w flomax 0.4 CT A/P - distended urinary bladder with diverticuli s/p mccracken removal nurse notified to assess for trial of void and then bladder scan to assess if pt retaining. Urology consulted- recommending out-patient follow up for Cystoscopy/TRUS/Urodynamic Studies. #Distended GB, Dilated CBD, Liver Cysts, Duodenal Diverticulum, all incidental findings on CT - for GI evaluation ?MRCP ?GI Series. - awating GI recs Ania recommending MRCP for further biliary tree eval, will f/u report and assess need for ERCP. #Bilateral Renal Cysts - Nephrology/Urology following - f/u MRI as o/p for bosniak staging #Multiple Pleural Nodules, ex-smoker - for out-patient Pulmonary referral. DVT Px - Heparin SQ. Visit type - Emergency Visit Emergency Visit: Yes ED Registration Date: 05/25/19 Care time: The patient presented to the Emergency Department on the above date and was hospitalized for further evaluation of their emergent condition. - New Patient This patient is new to me today: No - Critical Care Critical Care patient: No - Discharge Referral Referred to [facility] No ATTENDING PHYSICIAN STATEMENT I saw and evaluated the patient. I reviewed the resident's note and discussed the case with the resident. I agree with the resident's findings and plan as documented. SUBJECTIVE: OBJECTIVE: ASSESSMENT AND PLAN:
--- NOTE | 2019-05-28 11:59 | PN ---
Teaching Attending Note Name of Resident: Michael Hart ATTENDING PHYSICIAN STATEMENT I saw and evaluated the patient. I reviewed the resident's note and discussed the case with the resident. I agree with the resident's findings and plan as documented. SUBJECTIVE: Patient denies chest pain, palpitations, SOB, abdominal pain, nausea. OBJECTIVE: Vital Signs Period Temp Pulse Resp BP Sys/Edwards Pulse Ox Last 24 Hr 98 F-98.2 F 84-88 18-18 125-126/55-71 96 GENERAL: No distress, cachectic HEART: S1S2, RRR LUNGS: Clear ABDOMEN: Soft, non-tender, non-distended, normal BS EXTREMITIES: No edema Laboratory Results - last 24 hr 05/28/19 05/28/19 05:30 05:30 WBC 5.3 RBC 4.00 Hgb 11.8 Hct 35.3 L MCV 88.1 MCH 29.5 MCHC 33.5 RDW 14.1 Plt Count 220 MPV 7.4 L Absolute Neuts (auto) 3.3 Neutrophils % 62.4 D Lymphocytes % 25.9 D Monocytes % 8.7 Eosinophils % 2.4 D Basophils % 0.6 Nucleated RBC % 0 Sodium 138 Potassium 3.9 Chloride 103 Carbon Dioxide 26 Anion Gap 8 BUN 24.3 H Creatinine 1.2 Est GFR (CKD-EPI)AfAm 69.11 Est GFR (CKD-EPI)NonAf 59.63 Random Glucose 89 Calcium 8.1 L Total Bilirubin 0.9 AST 27 ALT 22 Alkaline Phosphatase 72 Total Protein 5.8 L Albumin 3.0 L Current Medications Generic Name Dose Route Start Last Admin Trade Name Freq PRN Reason Stop Dose Admin Furosemide 40 mg 05/29/19 10:00 Lasix - PO DAILY [facility] Heparin Sodium (Porcine) 5,000 unit 05/25/19 22:00 05/28/19 09:57 Heparin - SQ 5,000 unit BID [facility] Administration Lisinopril 2.5 mg 05/28/19 12:00 Prinivil PO 05/28/19 12:01 ONCE ONE Metoprolol Succinate 25 mg 05/28/19 12:00 Toprol Xl - PO DAILY [facility] Tamsulosin HCl 0.4 mg 05/26/19 13:38 05/28/19 09:57 Flomax - PO 0.4 mg DAILY@0830 [facility] Administration ASSESSMENT AND PLAN: This is a 73 year old man with a history of BPH, urinary incontinence, glaucoma who presented to the ED with shortness of breath. 1. Acute systolic heart failure - Improved with Lasix IV - change to PO - Continue lisinopril - Toprol XL started - Weight decreased 2.1 kg in 2 days - Echo shows mildly dilated LV, severe global hypokinesis of LV, LVEF 30%, normal RV, mildly dilated LA, mild to moderate MR, mild TR - Stress test today 2. BPH with urinary retention - Continue Flomax - Trial of void today - Outpatient urology follow-up 3. Dilated CBD, multiple liver cysts - MRCP pending 4. Bilateral renal cysts - Outpatient follow-up 5. Bilateral lung nodules - Unchanged from 2017 - Outpatient follow-up 6. Severe malnutrition with cachexia - Add Ensure
[2019-05-28] MEDS ORDERED: LISINOPRIL 5 MG TABLET (FP) PO ONE (12:00)
[2019-05-28] MEDS: metoPROLOL SUCCINATE 25 MG TAB.SR.24H (FP) PO SCH (13:09)
--- NOTE | 2019-05-28 15:40 | PN ---
Progress Note, Physician History of Present Illness: Pt seen and examined at bedside. He is awake and alert. He denies shortness of breath. - Current Medication List Current Medications: Active Medications Furosemide (Lasix -) 40 mg PO DAILY [facility] Heparin Sodium (Porcine) (Heparin -) 5,000 unit SQ BID [facility] Last Admin: 05/28/19 09:57 Dose: 5,000 unit Lisinopril (Prinivil) 2.5 mg PO DAILY [facility] Metoprolol Succinate (Toprol Xl -) 25 mg PO DAILY [facility] Last Admin: 05/28/19 13:09 Dose: 25 mg Tamsulosin HCl (Flomax -) 0.4 mg PO DAILY@0830 [facility] Last Admin: 05/28/19 09:57 Dose: 0.4 mg - Objective Vital Signs: Vital Signs Temperature 97.6 F 05/28/19 14:00 Pulse Rate 98 H 05/28/19 14:00 Respiratory Rate 20 05/28/19 14:00 Blood Pressure 148/73 05/28/19 14:00 O2 Sat by Pulse Oximetry (%) 96 05/27/19 21:00 Constitutional: Yes: Calm Eyes: Yes: Conjunctiva Clear HENT: Yes: Atraumatic Neck: Yes: Supple Cardiovascular: Yes: S1, S2 Respiratory: Yes: CTA Bilaterally Gastrointestinal: Yes: Soft Genitourinary: Yes: CARLITOS, Betsy Present Edema: No Neurological: Yes: Oriented Psychiatric: Yes: Oriented Labs: CBC, BMP 05/28/19 05:30 05/28/19 05:30 INR, PTT INR 0.92 (0.83-1.09) 05/25/19 18:32 Assessment/Plan Current Medications Generic Name Dose Route Start Last Admin Trade Name Freq PRN Reason Stop Dose Admin Furosemide 40 mg 05/29/19 10:00 Lasix - PO DAILY [facility] Heparin Sodium (Porcine) 5,000 unit 05/25/19 22:00 05/28/19 09:57 Heparin - SQ 5,000 unit BID [facility] Administration Lisinopril 2.5 mg 05/29/19 10:00 Prinivil PO DAILY [facility] Metoprolol Succinate 25 mg 05/28/19 12:00 05/28/19 13:09 Toprol Xl - PO 25 mg DAILY [facility] Administration Tamsulosin HCl 0.4 mg 05/26/19 13:38 05/28/19 09:57 Flomax - PO 0.4 mg DAILY@0830 [facility] Administration 1. renal cysts 2. CHF 3. Urinary retention 4. CAD 5. BPH Plan - renal function improved - cysts to be followed as outpt - po lasix - monitor lytes - continue flomax
--- NOTE | 2019-05-28 17:15 | PN.GI ---
GI Progress Note Subjective: No acute events MRI = large duodenal diverticulum leading to mass effect of the CBD and distention of CHD. No stones noted Patient denies abdominal pain - Objective Vital Signs: Vital Signs Temperature 97.6 F 05/28/19 14:00 Pulse Rate 98 H 05/28/19 14:00 Respiratory Rate 20 05/28/19 14:00 Blood Pressure 148/73 05/28/19 14:00 O2 Sat by Pulse Oximetry (%) 96 05/27/19 21:00 Constitutional: Calm Eyes: No: Sclera Icterus Cardiovascular: Yes: Regular Rate and Rhythm ...Auscultate: Yes: Normoactive Bowel Sounds ...Palpate: Yes: Soft. No: Tenderness Edema: No (No LE edema) Labs: CBC, BMP 05/28/19 05:30 05/28/19 05:30 INR, PTT INR 0.92 (0.83-1.09) 05/25/19 18:32 Problem List - Problems (1) Duodenal diverticulum Assessment/Plan: With mass effect on the CBD. Anatomic anomaly. Incidental findings. Liver chemistries wnl, not suggestive of obstruction No need for GI interventions. Recall as needed will sign off Management of admitting complain of shortness of breath per primary team Code(s): K57.10 - DVRTCLOS OF SM INT W/O PERFORATION OR ABSCESS W/O BLEEDING
[2019-05-28] MEDS ORDERED: PT OWN MED DRAWER 7, Y5N ONE (21:46)
[2019-05-29 08:01] LABS: BASO % 0.8 % (0-2.0); EOS % 3.8 % (0-4.5); HEMATOCRIT 35.9 % (35.4-49); HEMOGLOBIN 12.3 GM/dL (11.7-16.9); LYMPH % 22.2 % (8-40); MCH 30.2 pg (25.7-33.7); MCHC 34.2 g/dl (32.0-35.9); MEAN CELL VOLUME 88.3 fl (80-96); MEAN PLT VOLUME 7.2 fl (7.5-11.1); MONO % 8.1 % (3.8-10.2); NEUT % 65.1 % (42.8-82.8); PLATELET COUNT 229 K/MM3 (134-434); RBC 4.07 M/mm3 (4.00-5.60); RDW 13.9 % (11.9-15.9); WHITE BLOOD COUNT 5.7 K/mm3 (4.0-10.0)
[2019-05-29 08:23] LABS: BILIRUBIN,TOTAL 0.5 mg/dL (0.2-1); BLOOD UREA NITROGEN 26.6 mg/dL (7-18); CALCIUM 8.5 mg/dL (8.5-10.1); CREATININE 1.2 mg/dL (0.55-1.3); POTASSIUM 3.9 mmol/L (3.5-5.1); TOT PROT 6.1 g/dl (6.4-8.2)
[2019-05-29] MEDS ORDERED: FUROSEMIDE 40 MG TABLET (FP) PO SCH (10:00)
[2019-05-29] MEDS ORDERED: LISINOPRIL 5 MG TABLET (FP) PO SCH (10:00)
[2019-05-29] MEDS: TAMSULOSIN HCL 0.4 MG CAP PO SCH (10:52)
[2019-05-29] MEDS: metoPROLOL SUCCINATE 25 MG TAB.SR.24H (FP) PO SCH (10:53)
[2019-05-29] MEDS: HEPARIN NA (PORCINE) 5,000 UNITS/ML 1ML VIAL SQ SCH (10:53)
--- NOTE | 2019-05-29 11:10 | PN ---
Progress Note (short form) - Note Progress Note: s: no chest pain, palps, dizziness, edema. former smoker Current Medications Furosemide (Lasix -) 40 mg PO DAILY [facility] Last Admin: 05/29/19 10:53 Dose: 40 mg Heparin Sodium (Porcine) (Heparin -) 5,000 unit SQ BID [facility] Last Admin: 05/29/19 10:53 Dose: 5,000 unit Lisinopril (Prinivil) 2.5 mg PO DAILY [facility] Last Admin: 05/29/19 10:53 Dose: 2.5 mg Metoprolol Succinate (Toprol Xl -) 25 mg PO DAILY [facility] Last Admin: 05/29/19 10:53 Dose: 25 mg Tamsulosin HCl (Flomax -) 0.4 mg PO DAILY@0830 [facility] Last Admin: 05/29/19 10:52 Dose: 0.4 mg Vital Signs Period Temp Pulse Resp BP Sys/Edwards Pulse Ox Last 24 Hr 98 F-98.2 F 84-88 18-18 125-126/55-71 96 Constitutional: Yes: Well Nourished, No Distress, Calm Cardiovascular: Yes: Regular Rate and Rhythm, S1, S2. No: JVD, Gallop, Murmur Respiratory: Yes: Regular, CTA Bilaterally. No: Accessory Muscle Use, Rales, Wheezes Extremities: No: Cold Edema: No Neurological: Yes: Alert, Oriented Psychiatric: No: Agitated no jaundice, diaphoresis not agitated echo 05/2019 mildly dilated LV with severe global hypokinesis, EF 30%, elevated EDP/LAP suggested, mildly dilated LA, mildly calcified aortic valve with mild to mod regurg, mild MR, mild TR, mildly dilated aortic root 4 cm mibi 05/2019 large predominantly fixed defects in mid to distal anterior wall, apex and entire inferior wall and its adjacent distal lateral wall iwth mild nicole-infarct ischemia in region of distal lateral wall. severe fixed LV dilation with severe LV systolic dysfunction tele: sinus, 7 bt NSVT Assessment/Plan IMP: Acute on chronic CHF (systolic vs diastolic ?) likely etiology of SOB Possible underlying CAD, based on ECG Suspected COPD, former smoker BPH with chronic urinary retention. REC: acute systolic heart failure, ischemic cardiomyopathy -diuresed with lasix 40 iv qd - now on lasix 40 mg PO daily - mibi showed large fixed defects in mid to distal anterior wall, apex and entire inferior wall and its adjacent distal lateral wall with mild nicole- infarct ischemia in region of distal lateral wall - has history of chest pain in the past, no prior cardiac history but has not been to a doctor in many years - discussed cardiac cath with patient, he declines transfer at this point and will reconsider as an outpatient but would prefer medical therapy and avoiding procedures - repeat echo in 3 months to assess candidacy for ICD if patient agreeable -Echo shows dilated cardiomyopathy - EF 30% - cont metoprolol, lisinopril - plan to uptitrate as outpatient CAD: ECG w/ poor R wave progression/ possible old anteroseptal ID, large area of infarct on mibi -Enzymes negative here -No overt ischemic sx -TnI negative -declines cath as above - start aspirin 81 mg daily, atorvastatin 40 mg daily NSVT - likely in setting of cardiomyopathy - cont bb - replete lytes for K>4, Mg >2 Probable COPD: former smoker -outpt PFTs BPH: chronic urinary retention -takes no meds -Now with mccracken to help quantitate urine output and avoid retention - removed today for void trial -Consider starting Flomax, defer to PMD -Should have evaluation as outpt
--- NOTE | 2019-05-29 11:14 | PN ---
Teaching Attending Note Name of Resident: Michael Hart ATTENDING PHYSICIAN STATEMENT I saw and evaluated the patient. I reviewed the resident's note and discussed the case with the resident. I agree with the resident's findings and plan as documented. SUBJECTIVE: Patient has no complaints. OBJECTIVE: Vital Signs Period Temp Pulse Resp BP Sys/Edwards Pulse Ox Last 24 Hr 97 F-98 F 74-98 18-20 108-148/46-73 97 GENERAL: No distress, cachectic HEART: S1S2, RRR LUNGS: Clear ABDOMEN: Soft, non-tender, non-distended, normal BS EXTREMITIES: No edema Laboratory Results - last 24 hr 05/29/19 05/29/19 05:55 05:55 WBC 5.7 RBC 4.07 Hgb 12.3 Hct 35.9 MCV 88.3 MCH 30.2 MCHC 34.2 RDW 13.9 Plt Count 229 MPV 7.2 L Absolute Neuts (auto) 3.7 Neutrophils % 65.1 Lymphocytes % 22.2 Monocytes % 8.1 Eosinophils % 3.8 Basophils % 0.8 Nucleated RBC % 0 Sodium 135 L Potassium 3.9 Chloride 102 Carbon Dioxide 27 Anion Gap 7 L BUN 26.6 H Creatinine 1.2 Est GFR (CKD-EPI)AfAm 69.11 Est GFR (CKD-EPI)NonAf 59.63 Random Glucose 82 Calcium 8.5 Total Bilirubin 0.5 AST 25 ALT 24 Alkaline Phosphatase 74 Total Protein 6.1 L Albumin 3.0 L Current Medications Generic Name Dose Route Start Last Admin Trade Name Freq PRN Reason Stop Dose Admin Aspirin 81 mg 05/29/19 11:15 Asa - PO DAILY [facility] Atorvastatin Calcium 40 mg 05/29/19 22:00 Lipitor - PO HS [facility] Furosemide 40 mg 05/29/19 10:05/29/19 10:53 Lasix - PO 40 mg DAILY [facility] Administration Heparin Sodium (Porcine) 5,000 unit 05/25/19 22:00 05/29/19 10:53 Heparin - SQ 5,000 unit BID [facility] Administration Lisinopril 2.5 mg 05/29/19 10:05/29/19 10:53 Prinivil PO 2.5 mg DAILY [facility] Administration Metoprolol Succinate 25 mg 05/28/19 12:00 05/29/19 10:53 Toprol Xl - PO 25 mg DAILY [facility] Administration Tamsulosin HCl 0.4 mg 05/26/19 13:38 05/29/19 10:52 Flomax - PO 0.4 mg DAILY@0830 [facility] Administration ASSESSMENT AND PLAN: This is a 73 year old man with a history of BPH, urinary incontinence, glaucoma who presented to the ED with shortness of breath. 1. Acute systolic heart failure - Improved with Lasix IV - Weight decreased 2.3 kg in 3 days 2. Ischemic cardiomyopathy with chronic systolic heart failure - Continue lisinopril, Toprol XL, Lasix - Aspirin, Lipitor started - Echo shows mildly dilated LV, severe global hypokinesis of LV, LVEF 30%, normal RV, mildly dilated LA, mild to moderate MR, mild TR - Lexiscan stress showed no ischemic EKG changes; large fixed defects in mid to distal anterior wall, apex, inferior wall, distal lateral wall with mild niocle -infarct ischemia; severe LV dilatation with severe LV systolic dysfunction - Outpatient cardiology follow-up 3. BPH with urinary retention - Continue Flomax - Failed trial of void and Meyer re-inserted - Outpatient urology follow-up 4. 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 Bilateral renal cysts - Outpatient follow-up 6. Bilateral lung nodules - Unchanged from 2017 - Outpatient follow-up 7. Severe malnutrition with cachexia 8. Disposition - Ok for discharge home with VNS
[2019-05-29] MEDS ORDERED: metoPROLOL SUCCINATE 25 MG TAB.SR.24H (FP) PO ONE (11:15)
[2019-05-29] MEDS ORDERED: ASPIRIN 81 MG CHEWABLE TABLETS PO SCH (11:15)
--- NOTE | 2019-05-29 12:00 | PN ---
Progress Note, Physician History of Present Illness: Pt seen and examined at bedside. He is awake and alert. He denies shortness of breath. - Current Medication List Current Medications: Active Medications Aspirin (Asa -) 81 mg PO DAILY [facility] Last Admin: 05/29/19 11:46 Dose: 81 mg Atorvastatin Calcium (Lipitor -) 40 mg PO HS [facility] Furosemide (Lasix -) 40 mg PO DAILY [facility] Last Admin: 05/29/19 10:53 Dose: 40 mg Heparin Sodium (Porcine) (Heparin -) 5,000 unit SQ BID [facility] Last Admin: 05/29/19 10:53 Dose: 5,000 unit Lisinopril (Prinivil) 2.5 mg PO DAILY [facility] Last Admin: 05/29/19 10:53 Dose: 2.5 mg Metoprolol Succinate (Toprol Xl -) 50 mg PO DAILY [facility] Tamsulosin HCl (Flomax -) 0.4 mg PO DAILY@0830 [facility] Last Admin: 05/29/19 10:52 Dose: 0.4 mg - Objective Vital Signs: Vital Signs Temperature 97.8 F 05/29/19 09:34 Pulse Rate 95 H 05/29/19 09:34 Respiratory Rate 18 05/29/19 09:34 Blood Pressure 118/50 L 05/29/19 09:34 O2 Sat by Pulse Oximetry (%) 97 05/28/19 21:00 Constitutional: Yes: Calm Eyes: Yes: Conjunctiva Clear HENT: Yes: Atraumatic Neck: Yes: Supple Cardiovascular: Yes: S1, S2 Respiratory: Yes: CTA Bilaterally Gastrointestinal: Yes: Normal Bowel Sounds, Soft Genitourinary: Yes: WNL Musculoskeletal: Yes: WNL Edema: No Neurological: Yes: Oriented Psychiatric: Yes: Oriented Labs: CBC, BMP 05/29/19 05:55 05/29/19 05:55 INR, PTT INR 0.92 (0.83-1.09) 05/25/19 18:32 Assessment/Plan Current Medications Generic Name Dose Route Start Last Admin Trade Name Freq PRN Reason Stop Dose Admin Aspirin 81 mg 05/29/19 11:15 05/29/19 11:46 Asa - PO 81 mg DAILY [facility] Administration Atorvastatin Calcium 40 mg 05/29/19 22:00 Lipitor - PO HS [facility] Furosemide 40 mg 05/29/19 10:00 05/29/19 10:53 Lasix - PO 40 mg DAILY [facility] Administration Heparin Sodium (Porcine) 5,000 unit 05/25/19 22:00 05/29/19 10:53 Heparin - SQ 5,000 unit BID [facility] Administration Lisinopril 2.5 mg 05/29/19 10:00 05/29/19 10:53 Prinivil PO 2.5 mg DAILY [facility] Administration Metoprolol Succinate 50 mg 05/29/19 11:14 Toprol Xl - PO DAILY [facility] Tamsulosin HCl 0.4 mg 05/26/19 13:38 05/29/19 10:52 Flomax - PO 0.4 mg DAILY@0830 [facility] Administration 1. renal cysts 2. CHF 3. Urinary retention 4. CAD 5. BPH Plan - cont to monitor legal technician on lasix - sodium dropping, repeat labs in am - volume status improved - cysts to be followed as outpt - continue flomax
--- NOTE | 2019-05-29 12:56 | PN ---
Physical Exam: SUBJECTIVE: Patient seen and examined OBJECTIVE: Vital Signs Period Temp Pulse Resp BP Sys/Edwards Pulse Ox Last 24 Hr 97 F-98 F 74-98 18-20 108-148/46-73 97 GENERAL: The patient is awake, alert, and fully oriented, in no acute distress. HEAD: Normal with no signs of trauma. EYES: PERRL, extraocular movements intact, sclera anicteric, conjunctiva clear. No ptosis. ENT: Ears normal, nares patent, oropharynx clear without exudates, moist mucous membranes. NECK: Trachea midline, full range of motion, supple. LUNGS: Breath sounds equal, clear to auscultation bilaterally, no wheezes, no crackles, no accessory muscle use. HEART: Regular rate and rhythm, S1, S2 without murmur, rub or gallop. ABDOMEN: Soft, nontender, nondistended, normoactive bowel sounds, no guarding, no rebound, no hepatosplenomegaly, no masses. EXTREMITIES: 2+ pulses, warm, well-perfused, no edema. NEUROLOGICAL: Cranial nerves II through XII grossly intact. Normal speech, gait not observed. PSYCH: Normal mood, normal affect. SKIN: Warm, dry, normal turgor, no rashes or lesions noted Laboratory Results - last 24 hr 05/29/19 05/29/19 05:55 05:55 WBC 5.7 RBC 4.07 Hgb 12.3 Hct 35.9 MCV 88.3 MCH 30.2 MCHC 34.2 RDW 13.9 Plt Count 229 MPV 7.2 L Absolute Neuts (auto) 3.7 Neutrophils % 65.1 Lymphocytes % 22.2 Monocytes % 8.1 Eosinophils % 3.8 Basophils % 0.8 Nucleated RBC % 0 Sodium 135 L Potassium 3.9 Chloride 102 Carbon Dioxide 27 Anion Gap 7 L BUN 26.6 H Creatinine 1.2 Est GFR (CKD-EPI)AfAm 69.11 Est GFR (CKD-EPI)NonAf 59.63 Random Glucose 82 Calcium 8.5 Total Bilirubin 0.5 AST 25 ALT 24 Alkaline Phosphatase 74 Total Protein 6.1 L Albumin 3.0 L Active Medications Generic Name Dose Route Start Last Admin Trade Name Freq PRN Reason Stop Dose Admin Aspirin 81 mg 05/29/19 11:15 05/29/19 11:46 Asa - PO 81 mg DAILY [facility] Administration Atorvastatin Calcium 40 mg 05/29/19 22:00 Lipitor - PO HS [facility] Furosemide 40 mg 05/29/19 10:00 05/29/19 10:53 Lasix - PO 40 mg DAILY [facility] Administration Heparin Sodium (Porcine) 5,000 unit 05/25/19 22:00 05/29/19 10:53 Heparin - SQ 5,000 unit BID [facility] Administration Lisinopril 2.5 mg 05/29/19 10:00 05/29/19 10:53 Prinivil PO 2.5 mg DAILY [facility] Administration Metoprolol Succinate 50 mg 05/29/19 11:14 Toprol Xl - PO DAILY [facility] Tamsulosin HCl 0.4 mg 05/26/19 13:38 05/29/19 10:52 Flomax - PO 0.4 mg DAILY@0830 [facility] Administration ASSESSMENT/PLAN: ATTENDING PHYSICIAN STATEMENT I saw and evaluated the patient. I reviewed the resident's note and discussed the case with the resident. I agree with the resident's findings and plan as documented. SUBJECTIVE: OBJECTIVE: ASSESSMENT AND PLAN:
--- NOTE | 2019-05-29 12:57 | DS ---
Physical Exam: SUBJECTIVE: Patient seen and examined at bedside. No acute eventsm, pt asymptomatic, no cp, sob, fevers, chills abdominal pain, weakness. Pt with mccracken in place due to retention of 700cc on bladder scan. OBJECTIVE: Vital Signs Period Temp Pulse Resp BP Sys/Edwards Pulse Ox Last 24 Hr 97 F-98 F 74-98 18-20 108-148/46-73 97 PHYSICAL EXAM GENERAL: The patient is awake, alert, and fully oriented, in no acute distress. LUNGS: Breath sounds equal, clear to auscultation bilaterally, no wheezes, no crackles, no accessory muscle use. HEART: Regular rate and rhythm, S1, S2 without murmur, rub or gallop. ABDOMEN: Soft, nontender, nondistended. NEUROLOGICAL: Cranial nerves II through XII grossly intact. Normal speech, gait not observed. SKIN: Warm, dry, normal turgor, no rashes or lesions noted, mccracken bag in place for retention. LABS Laboratory Results - last 24 hr 05/29/19 05/29/19 05:55 05:55 WBC 5.7 RBC 4.07 Hgb 12.3 Hct 35.9 MCV 88.3 MCH 30.2 MCHC 34.2 RDW 13.9 Plt Count 229 MPV 7.2 L Absolute Neuts (auto) 3.7 Neutrophils % 65.1 Lymphocytes % 22.2 Monocytes % 8.1 Eosinophils % 3.8 Basophils % 0.8 Nucleated RBC % 0 Sodium 135 L Potassium 3.9 Chloride 102 Carbon Dioxide 27 Anion Gap 7 L BUN 26.6 H Creatinine 1.2 Est GFR (CKD-EPI)AfAm 69.11 Est GFR (CKD-EPI)NonAf 59.63 Random Glucose 82 Calcium 8.5 Total Bilirubin 0.5 AST 25 ALT 24 Alkaline Phosphatase 74 Total Protein 6.1 L Albumin 3.0 L HOSPITAL COURSE: Date of Admission:05/25/19 Images: echo 05/2019 mildly dilated LV with severe global hypokinesis, EF 30%, elevated EDP/LAP suggested, mildly dilated LA, mildly calcified aortic valve with mild to mod regurg, mild MR, mild TR, mildly dilated aortic root 4 cm mibi 05/2019 large predominantly fixed defects in mid to distal anterior wall, apex and entire inferior wall and its adjacent distal lateral wall iwth mild nicole-infarct ischemia in region of distal lateral wall. severe fixed LV dilation with severe LV systolic dysfunction This patient was admitted for mgmt of acute on chronic CHFrEF with an echo showing 30%EF here not on any medications. He was given optimal medical therapy and underwent stress test which was as shown above. Pt declined transfer at this time and preferred medical therapy. Pt was started on flomax for his acute urinary retention and for his BPH/bladder diverticulum shown on imaging here and told to f/u with uro as o/p. Pt started on PO 40 lasix, 2.5 lisinopril, metoprolol 50, ASA, lipitor for his chf mgmt. Patient's Follow Up's Please follow up with your primary care physician within 1 week. If you do not have one, you may make an appointment at [facility]. Please follow up with your urologist, Dr. Correa, within 1 week. You will need outpatient evaluation to have a cystoscopy (camera to look at your urinary bladder) as well as urodynamic testing. Please follow up with your agricultural lender, Dr. Terrazas, within 1 week for outpatient evaluation of your kidney cysts. Please follow up with your sheet metal worker helper, Dr. Amato, within 1 week for evaluation of your heart. You will need a repeat echo in 3 months. Date of Discharge: 05/29/19 Minutes to complete discharge: 35 Discharge Summary Problems reviewed: Yes Reason For Visit: SENT BY PCP/SOB/HEART FAILURE/PLEURAL EFFUSION Current Active Problems BPH associated with nocturia (Acute) CHF (congestive heart failure) (Acute) Duodenal diverticulum (Acute) Heart failure (Acute) Pleural effusion (Acute) Shortness of breath (Acute) Urinary retention (Acute) Condition: Stable - Instructions Diet, Activity, Other Instructions: You were admitted for heart failure. We monitored your heart function while you were here and did several imaging studies to make sure you were not having a heart attack. You were seen and evaluated by cardiology (Dr. Amato) who believes it is safe for you to be discharged at this time. You were also found to have some incidental issues while here like a problem urinating so we started you on a medication shown below for your prostate. You will be going home with a mccracken (catheter connected to your urethra) to help you urinate. You also were found to have some cysts on your kidney that require you to follow up with the kidney doctor (Nini) as shown below. Medications We have made the following changes to your medications regimen: Please START 0.4 mg Flomax by mouth once daily for your prostate and help decrease night time urination. Please START 40 mg Lasix by mouth once daily for your heart failure. Please START 2.5 mg Lisinopril by mouth once daily for your heart failure. Please START 50 mg Metoprolol Succinate by mouth once daily for your heart failure. Please START Lipitor 40 mg by mouth once daily. Please START Aspirin 81 mg by mouth once daily. Follow Up Please follow up with your primary care physician within 1 week. If you do not have one, you may make an appointment at [facility]. Please follow up with your urologist, Dr. Correa, within 1 week. You will need outpatient evaluation to have a cystoscopy (camera to look at your urinary bladder) as well as urodynamic testing. Please follow up with your agricultural lender, Dr. Terrazas, within 1 week for outpatient evaluation of your kidney cysts. Please follow up with your sheet metal worker helper, Dr. Amato, within 1 week for evaluation of your heart. You will need a repeat echo in 3 months. Recommendations You will need outpatient pulmonary function tests as well at your earliest convenience and for evaluation of your incidental lung nodules (Dr. Bautista) Please try to drink ENSURE while at home to supplement your diet. Please return to the ER if you have any worsening of your current condition. Referrals: [facility] [place] [Provider Group] - 1 Week Jordy Amato MD [Staff Physician] - 1 Week Jarod Correa MD [Staff Physician] - 1 Week Alessio Bautista MD [Staff Physician] - Oumar Terrazas MD [Staff Physician] - 1 Week Disposition: HOME - Home Medications Comprehensive Discharge Medication List: Ambulatory Orders Aspirin [ASA -] 81 mg PO DAILY #30 tab.chew 05/29/19 Atorvastatin Ca [Lipitor] 40 mg PO HS #30 tablet 05/29/19 Furosemide [Lasix -] 40 mg PO DAILY #30 tablet 05/29/19 Lisinopril [Prinivil] 2.5 mg PO DAILY #30 tablet 05/29/19 Metoprolol Succinate [Toprol XL -] 50 mg PO DAILY #30 tab.sr.24h 05/29/19 Tamsulosin HCl [Flomax -] 0.4 mg PO DAILY@0830 #30 cap.er.24h 05/29/19 This patient is new to me today: No Emergency Visit: No Critical Care patient: No - Discharge Referral Referred to [facility] Med P.C[facility] No ATTENDING PHYSICIAN STATEMENT I saw and evaluated the patient. I reviewed the resident's note and discussed the case with the resident. I agree with the resident's findings and plan as documented. SUBJECTIVE: OBJECTIVE: ASSESSMENT AND PLAN:
[2019-05-29 16:52] VITALS: BP 108/60; PULSE 78; TEMP 98.5
[2019-05-29] MEDS ORDERED: ATORVASTATIN CA 40 MG TABLET (FP) PO SCH (22:00)
== END 2019-05-29 17:20 | disposition home or self-care (01) | DRG 291 ==
LOC: JER 17:38 → JERBED 19:32 → J4W 05-26 04:59
PROVIDERS: ADMIT Internal Medicine; ATTEND Internal Medicine
PROC: 5A09357 Assistance with Respiratory Ventilation, Less than 24 Consecutive Hours, Continuous Positive Airway Pressure (ICD-10-PCS; principal; 2019-05-25)
DX: I50.23 Acute on chronic systolic (congestive) heart failure (principal); E43 Unspecified severe protein-calorie malnutrition; J90 Pleural effusion, not elsewhere classified; K57.12 Diverticulitis of small intestine without perforation or abscess without bleeding; I47.2 Ventricular tachycardia; Z68.1 Body mass index [BMI] 19.9 or less, adult; R64 Cachexia; I25.5 Ischemic cardiomyopathy; R91.8 Other nonspecific abnormal finding of lung field; R32 Unspecified urinary incontinence; H40.9 Unspecified glaucoma; R35.0 Frequency of micturition; R05 Cough; R33.9 Retention of urine, unspecified; N32.89 Other specified disorders of bladder; N30.90 Cystitis, unspecified without hematuria; N28.1 Cyst of kidney, acquired; K76.89 Other specified diseases of liver; I25.10 Atherosclerotic heart disease of native coronary artery without angina pectoris; Z85.46 Personal history of malignant neoplasm of prostate; Z87.891 Personal history of nicotine dependence; Z08 Encounter for follow-up examination after completed treatment for malignant neoplasm
CPT/HCPCS: 36415; 71045-TC-FY; 71046-TC-FY; 71275-TC; 74177-TC; 74181-TC; 78452-TC; 80048; 80053; 81003; 82550; 82553; 83735; 83880; 84100; 84484; 85025; 85379; 85610; 85730; 87804; 93005; 93010; 93017; 93306-TC; 93308; 94660; 99285-25; A9502; J1644; J2785; Q9967

== ENCOUNTER 2019-06-05 19:21 | Emergency (ER) | payer OTHER ==
[2019-06-05 19:53] VITALS: BP 137/45; PULSE 73; TEMP 97.3; BMI 17.3
--- NOTE | 2019-06-05 21:20 | PDOC ---
Attending Attestation - Resident Resident Name: HarjinderhelenHaydee - ED Attending Attestation I have performed the following: I have examined & evaluated the patient, The case was reviewed & discussed with the resident, I agree w/resident's findings & plan - HPI HPI: 06/05/19 21:32 see resident hpi - Physicial Exam PE: 06/05/19 21:33 see resident exam - Medical Decision Making 06/05/19 21:36 74-year-old male with an episode of hematuria now resolved with indwelling Meyer catheter Plan for UA and culture Antibiotics if indicated Patient is comfortable at this time and asymptomatic There is clear yellow urine in the leg bag We will follow-up with urology outpatient
[2019-06-05 21:38] LABS: EPI CELLS 0.1 /HPF (0-5/HPF); HYALINE CASTS 0 /lpf (0-8); URINE APPEARANCE CLEAR; URINE BACTERIA 1.2 /hpf (NEGATIVE); URINE BILIRUBIN NEGATIVE (NEGATIVE); URINE COLOR YELLOW; URINE GLUCOSE (UA) NEGATIVE (NEGATIVE); URINE KETONE NEGATIVE (NEGATIVE); URINE LEUK ESTERASE NEGATIVE (NEGATIVE); URINE NITRITE NEGATIVE (NEGATIVE); URINE PROTEIN NEGATIVE (NEGATIVE); URINE RBC 12 /hpf (0-4); URINE UROBILINOGEN 0.2 mg/dL (0.2-1.0); URINE WBC 0 /hpf (0-5)
--- NOTE | 2019-06-05 21:40 | PDOC ---
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 He states that he went to empty his catheter bag about 2-3 hours ago and noticed that the urine was red-tinged. He was concerned and presented for evaluation. He denies any recent fevers, chills, suprapubic pain, change in urinary output, or other recent symptoms. Past History - Past Medical History Allergies/Adverse Reactions: Allergies Allergy/AdvReac Type Severity Reaction Status Date / Time No Known Allergies Allergy Verified 06/05/19 19:53 Home Medications: Ambulatory Orders Aspirin [ASA -] 81 mg PO DAILY #30 tab.chew 05/29/19 Atorvastatin Ca [Lipitor] 40 mg PO HS #30 tablet 05/29/19 Furosemide [Lasix -] 40 mg PO DAILY #30 tablet 05/29/19 Lisinopril [Prinivil] 2.5 mg PO DAILY #30 tablet 05/29/19 Metoprolol Succinate [Toprol XL -] 50 mg PO DAILY #30 tab.sr.24h 05/29/19 Tamsulosin HCl [Flomax -] 0.4 mg PO DAILY@0830 #30 cap.er.24h 05/29/19 Anemia: No Asthma: No Cancer: No CVA: No COPD: No Dementia: No Diabetes: No GI Disorders: No Disorders: No HTN: No Hypercholesterolemia: No Liver Disease: No Seizures: No Thyroid Disease: No - Immunization History Immunization Up to Date: Yes - Psycho Social/Smoking Cessation Hx Smoking History: Former smoker Have you smoked in the past 12 months: No Number of Cigarettes Smoked Daily: 7 If you are a former smoker, when did you quit?: 7 years ago Information on smoking cessation initiated: No 'Breaking Loose' booklet given: 06/29/13 Hx Alcohol Use: No Drug/Substance Use Hx: No Substance Use Type: None Hx Substance Use Treatment: No Review of Systems - Review of Systems Comments:: General: No fevers, no chills, no weight or appetite change, no malaise HEENT: No changes in vision, no changes in hearing, no congestion, no sore throat CV: No chest pain, no palpitations, no LE edema Pulm: No SOB, no cough, no wheezing GI: No nausea or vomiting, no change in bowel habits, no melena : See HPI Musc: No back pain, no joint swelling, no recent injury Skin: No rash, no lesions, no erythema Endo: No excessive thirst, no heat/cold intolerance Heme: No unusual bruising or bleeding, no swollen glands Neuro: No syncope, no numbness/tingling, no focal weakness Vasc: No claudication Psych: No recent change in mood, no SI or HI *Physical Exam - Vital Signs Last Vital Signs Temp Pulse Resp BP Pulse Ox 97.3 F L 73 18 137/45 L 100 06/05/19 19:51 06/05/19 19:51 06/05/19 19:51 06/05/19 19:51 06/05/19 19:51 - Physical Exam General: Comfortable, no acute distress HEENT: Atraumatic, PERRL, EOMI, MMM, voice normal Cards: RRR, no murmur appreciated Pulm: Comfortable on room air, clear to auscultation bilaterally Abd: Soft, nontender, nondistended : No CVA tenderness, no suprapubic tenderness. Mccrakcen in place and draining freely, clear yellow urine in bag. Ext: Atraumatic. No LE edema. WWP Skin: Normal color, no rashes or lesions Neuro: A&Ox3, CN grossly intact, normal speech, motor/sensory grossly intact and symmetric Psych: Mood appropriate to situation Medical Decision Making - Medical Decision Making 06/05/19 21:35 Yung Lopes is a 74yo man with a PMH of CHF, recently admitted for CHF exacerbation and found to have urinary retention and bladder diverdiculum, discharged on 05/28 with an indwelling cathether, who presents with painless hematuria in his catheter bag this evening. - Clear urine in mccracken bag, hematuria appears to have resolved. Most likely secondary to minor trauma from indwelling catheter vs UTI. - UA, UCx sent 06/05/19 21:58 - UA with 3+ blood but no sign of infection - Updated pt, informed that culture was sent and he will be called if it is positive. - Pt has follow up with urology scheduled for 06/18/19. Recommended that he call tomorrow to reschedule for an earlier appointmentRecommended that he call tomorrow to reschedule for an earlier appointment. He states understanding and agreement, and he feels comfortable being discharged home Discussed with Dr Cornel Ballard PGY2 Discharge - Discharge Information Problems reviewed: Yes Clinical Impression/Diagnosis: Hematuria Qualifiers: Hematuria type: asymptomatic microscopic Qualified Code(s): R31.21 - Asymptomatic microscopic hematuria Condition: Stable Disposition: HOME - Admission No - Follow up/Referral - Patient Discharge Instructions Patient Printed Discharge Instructions: DI for Hematuria Additional Instructions: Discharge Instructions: You were seen in the emergency department for bloody urine, called hematuria. Your urine test did show a small amount of blood, but there is no sign of infe ction. You had a urine culture sent and will be called if any infection is found. Please continue to take all of your regular home medications as prescribed. Try to call your urologist tomorrow to reschedule your appointment; try to schedule an appointment for within the next week. Seek immediate care if you have worsening symptoms, continued blood in your urine, fever/chills, back pain, or any other medical emergency. - Post Discharge Activity
== END 2019-06-05 22:09 | disposition home or self-care (01) ==
LOC: JER 19:21
DX: R31.21 Asymptomatic microscopic hematuria (principal); I50.9 Heart failure, unspecified; Z87.891 Personal history of nicotine dependence
CPT/HCPCS: 81003; 87086; 99283-25

== ENCOUNTER 2020-09-27 20:52 | Emergency (ER) | payer OTHER ==
[2020-09-27 21:03] VITALS: BP 164/70; PULSE 84; TEMP 98.2
[2020-09-27] MEDS ORDERED: LIDOCAINE HCL 2% JELLY 10 ML CARTRIDGE ONE (21:31)
[2020-09-27 21:56] LABS: EOS % 2.7 % (0-4.5); HEMATOCRIT 33.1 % (35.4-49); HEMOGLOBIN 11.2 GM/dL (11.7-16.9); LYMPH % 27.4 % (8-40); MCH 28.8 pg (25.7-33.7); MCHC 33.8 g/dl (32.0-35.9); MEAN CELL VOLUME 85.2 fl (80-96); MEAN PLT VOLUME 6.8 fl (7.5-11.1); MONO % 8.8 % (3.8-10.2); NEUT % 60.1 % (42.8-82.8); PLATELET COUNT 223 10^3/uL (134-434); RBC 3.89 M/mm3 (4.00-5.60); RDW 14.7 % (11.9-15.9); WHITE BLOOD COUNT 5.1 K/mm3 (4.0-10.0)
[2020-09-27 22:08] LABS: PH,URINE 6.5 (5.0-8.0); URINE APPEARANCE Clear; URINE BILIRUBIN Negative (NEGATIVE); URINE COLOR Yellow; URINE GLUCOSE (UA) Negative (NEGATIVE); URINE KETONE Negative (NEGATIVE); URINE LEUK ESTERASE Negative (NEGATIVE); URINE NITRITE Negative (NEGATIVE); URINE PROTEIN Negative (NEGATIVE); URINE UROBILINOGEN 0.2 mg/dL (0.2-1.0)
[2020-09-27 22:20] LABS: CHLORIDE 102 mmol/L (98-107); SODIUM 136 mmol/L (136-145)
[2020-09-27 22:22] LABS: CALCIUM 8.4 mg/dL (8.5-10.1)
[2020-09-27 22:23] LABS: ALBUMIN 3.8 g/dl (3.4-5.0); ANION GAP 9 MMOL/L (8-16); BLOOD UREA NITROGEN 40.1 mg/dL (7-18); CO2 25 mmol/L (21-32); GLUCOSE,RANDOM 123 mg/dL (74-106)
[2020-09-27 22:26] LABS: SGOT/AST 16 U/L (15-37); SGPT/ALT 20 U/L (13-61)
[2020-09-27 22:27] LABS: TOT PROT 7.2 g/dl (6.4-8.2)
[2020-09-27 22:28] LABS: ALK PHOS 107 U/L (45-117); BILIRUBIN,TOTAL 0.5 mg/dL (0.2-1)
[2020-09-27 22:31] LABS: N-TERMINAL BNP 2908.5 pg/ml (5-450)
[2020-09-27 22:46] LABS: CREATININE 1.5 mg/dL (0.55-1.3)
== END 2020-09-28 00:44 | disposition home or self-care (01) ==
LOC: JER 20:52
DX: R33.8 Other retention of urine (principal); N40.0 Benign prostatic hyperplasia without lower urinary tract symptoms
CPT/HCPCS: 36415; 71046-TC-FY; 80053; 81003; 82550; 83880; 84484; 85025; 87086; 93005; 93010; 93971-TC; 99284-25

== ENCOUNTER 2023-01-08 04:33 | Inpatient (IN) | payer OTHER ==
[2023-01-08] MEDS ORDERED: ACETAMINOPHEN 1000 MG/100 ML BAG IVPB ONE (05:10)
[2023-01-08] MEDS ORDERED: ACETAMINOPHEN INJECTION 100 ML IVPB ONE (05:18)
[2023-01-08 06:19] LABS: POTASSIUM 4.6 mmol/L (3.5-5.1)
[2023-01-08 06:21] LABS: CALCIUM 8.5 mg/dL (8.5-10.1)
[2023-01-08 06:22] LABS: ALBUMIN 3.6 g/dl (3.4-5.0); MAGNESIUM 1.8 mg/dL (1.8-2.4)
[2023-01-08 06:25] LABS: CREATININE 1.5 mg/dL (0.55-1.3)
[2023-01-08 06:26] LABS: BILIRUBIN,TOTAL 0.5 mg/dL (0.2-1)
[2023-01-08 06:30] LABS: N-TERMINAL BNP 2812.4 pg/ml (5-450)
[2023-01-08 06:45] LABS: HEMATOCRIT 33.4 % (35.4-49); HEMOGLOBIN 10.8 GM/dL (11.7-16.9); INR 0.94 (0.83-1.09); MCH 28.5 pg (25.7-33.7); MCHC 32.3 g/dl (32.0-35.9); MEAN CELL VOLUME 88.1 fl (80-96); MEAN PLT VOLUME 6.9 fl (7.5-11.1); PLATELET COUNT 241 10^3/uL (134-434); PROTHROMBIN TIME (PATIENT) 10.9 SEC (9.7-13.0); RBC 3.79 M/mm3 (4.00-5.60); RDW 16.8 % (11.9-15.9)
[2023-01-08 06:48] LABS: ACTIVATED PTT 30.2 SECONDS (25.2-36.5)
[2023-01-08 07:20] LABS: PLATELET ESTIMATE ADEQUATE
[2023-01-08] MEDS: ATORVASTATIN CA 40 MG TABLET (FP) PO SCH (23:00)
[2023-01-08] MEDS: HEPARIN NA (PORCINE) 5,000 UNITS/ML 1ML VIAL SQ SCH (23:00)
[2023-01-09 08:43] LABS: EPI CELLS 1 /uL (0-25.1); HYALINE CASTS 0 /uL (0-3.1); URINE APPEARANCE TURBID; URINE BACTERIA 122 /uL (0-1359); URINE BILIRUBIN NEGATIVE (NEGATIVE); URINE COLOR YELLOW; URINE GLUCOSE (UA) NEGATIVE (NEGATIVE); URINE KETONE NEGATIVE (NEGATIVE); URINE LEUK ESTERASE 3+ (NEGATIVE); URINE NITRITE NEGATIVE (NEGATIVE); URINE PROTEIN 2+ (NEGATIVE); URINE RBC 342 /uL (0-23.9); URINE WBC 13212 /uL (0-25.8)
[2023-01-09] MEDS: ASPIRIN 81 MG CHEWABLE TABLETS PO SCH (09:27)
[2023-01-09] MEDS: LISINOPRIL 5 MG TABLET PO SCH (09:27)
[2023-01-09] MEDS: FUROSEMIDE 20 MG TABLET (FP) PO SCH (09:27)
[2023-01-09] MEDS: HEPARIN NA (PORCINE) 5,000 UNITS/ML 1ML VIAL SQ SCH ×2 (09:27→21:20)
[2023-01-09 10:13] LABS: CALCIUM 8.4 mg/dL (8.5-10.1)
[2023-01-09 10:14] LABS: BLOOD UREA NITROGEN 38.3 mg/dL (7-18)
[2023-01-09 10:17] LABS: CREATININE 1.8 mg/dL (0.55-1.3)
[2023-01-09] MEDS ORDERED: CEFTRIAXONE 1,000 MG in DEXTROSE 5%-WATER - 50 ML IVPB ONE (15:06)
[2023-01-09] MEDS ORDERED: CEFTRIAXONE 1 GM in DEXTROSE 5%-WATER - 50 ML IVPB ONE (15:15)
[2023-01-09] MEDS: ATORVASTATIN CA 40 MG TABLET (FP) PO SCH (21:21)
[2023-01-10] MEDS: ASPIRIN 81 MG CHEWABLE TABLETS PO SCH (09:09)
[2023-01-10] MEDS: LISINOPRIL 5 MG TABLET PO SCH (09:09)
[2023-01-10] MEDS: FUROSEMIDE 20 MG TABLET (FP) PO SCH (09:09)
[2023-01-10] MEDS: HEPARIN NA (PORCINE) 5,000 UNITS/ML 1ML VIAL SQ SCH ×2 (09:10→22:46)
[2023-01-10 10:13] LABS: BASO % 0.4 % (0-2.0); EOS % 0.5 % (0-4.5); HEMATOCRIT 30.2 % (35.4-49); HEMOGLOBIN 9.8 GM/dL (11.7-16.9); LYMPH % 10.5 % (8-40); MCH 28.6 pg (25.7-33.7); MCHC 32.6 g/dl (32.0-35.9); MEAN CELL VOLUME 87.9 fl (80-96); MONO % 3.9 % (3.8-10.2); NEUT % 84.7 % (42.8-82.8); PLATELET COUNT 218 10^3/uL (134-434); RBC 3.43 M/mm3 (4.00-5.60); RDW 16.5 % (11.9-15.9)
[2023-01-10 11:18] LABS: POTASSIUM 3.8 mmol/L (3.5-5.1)
[2023-01-10 11:26] LABS: CREATININE 1.6 mg/dL (0.55-1.3)
[2023-01-10 11:27] LABS: BILIRUBIN,TOTAL 0.5 mg/dL (0.2-1); TOT PROT 5.8 g/dl (6.4-8.2)
[2023-01-10 11:30] LABS: CALCIUM 8.1 mg/dL (8.5-10.1)
[2023-01-10 11:31] LABS: BLOOD UREA NITROGEN 36.8 mg/dL (7-18)
[2023-01-10 11:42] LABS: ALBUMIN 2.7 g/dl (3.4-5.0)
[2023-01-10] MEDS ORDERED: LACTATED RINGERS SOLUTION 1,000 ML/1,000 ML INFUS.BAG IV SCH (18:00)
[2023-01-10] MEDS: ATORVASTATIN CA 40 MG TABLET (FP) PO SCH (22:46)
[2023-01-11 09:30] LABS: HEMATOCRIT 31.5 % (35.4-49); HEMOGLOBIN 10.4 GM/dL (11.7-16.9); MCH 28.8 pg (25.7-33.7); MCHC 32.9 g/dl (32.0-35.9); MEAN CELL VOLUME 87.6 fl (80-96); MEAN PLT VOLUME 6.9 fl (7.5-11.1); PLATELET COUNT 241 10^3/uL (134-434); RBC 3.59 M/mm3 (4.00-5.60); RDW 16.7 % (11.9-15.9); WHITE BLOOD COUNT 6.7 K/mm3 (4.0-10.0)
[2023-01-11 09:43] LABS: POTASSIUM 3.8 mmol/L (3.5-5.1)
[2023-01-11 09:52] LABS: ALBUMIN 2.8 g/dl (3.4-5.0); BLOOD UREA NITROGEN 33.6 mg/dL (7-18)
[2023-01-11 09:53] LABS: PHOSPHOROUS 2.5 mg/dL (2.5-4.9)
[2023-01-11 09:54] LABS: TOT PROT 6.3 g/dl (6.4-8.2)
[2023-01-11 09:55] LABS: BILIRUBIN,TOTAL 0.5 mg/dL (0.2-1); CREATININE 1.5 mg/dL (0.55-1.3)
[2023-01-11] MEDS: ASPIRIN 81 MG CHEWABLE TABLETS PO SCH (10:18)
[2023-01-11] MEDS: LISINOPRIL 5 MG TABLET PO SCH (10:19)
[2023-01-11] MEDS: HEPARIN NA (PORCINE) 5,000 UNITS/ML 1ML VIAL SQ SCH ×2 (10:19→21:08)
[2023-01-11] MEDS: FUROSEMIDE 20 MG TABLET (FP) PO SCH (10:19)
[2023-01-11] MEDS: ATORVASTATIN CA 40 MG TABLET (FP) PO SCH (21:09)
[2023-01-12] MEDS: MULTIVITAMINS (DAILY MVI) TABLET (FP) PO SCH (09:55)
[2023-01-12] MEDS: FUROSEMIDE 20 MG TABLET (FP) PO SCH (09:55)
[2023-01-12] MEDS: LISINOPRIL 5 MG TABLET PO SCH (09:55)
[2023-01-12] MEDS: ASPIRIN 81 MG CHEWABLE TABLETS PO SCH (09:55)
[2023-01-12] MEDS: ASCORBIC ACID 250 MG TABLET (FP) PO SCH (09:55)
[2023-01-12 10:40] LABS: HEMATOCRIT 30.8 % (35.4-49); HEMOGLOBIN 10.1 GM/dL (11.7-16.9); MCH 28.8 pg (25.7-33.7); MCHC 32.7 g/dl (32.0-35.9); MEAN PLT VOLUME 6.6 fl (7.5-11.1); PLATELET COUNT 249 10^3/uL (134-434); RDW 16.4 % (11.9-15.9); WHITE BLOOD COUNT 7.5 K/mm3 (4.0-10.0)
[2023-01-12] MEDS: HEPARIN NA (PORCINE) 5,000 UNITS/ML 1ML VIAL SQ SCH ×2 (10:44→21:23)
[2023-01-12 10:58] LABS: POTASSIUM 4.5 mmol/L (3.5-5.1)
[2023-01-12 11:02] LABS: ALBUMIN 2.8 g/dl (3.4-5.0); BLOOD UREA NITROGEN 32.1 mg/dL (7-18); CALCIUM 8.5 mg/dL (8.5-10.1); MAGNESIUM 2.1 mg/dL (1.8-2.4)
[2023-01-12 11:05] LABS: CREATININE 1.4 mg/dL (0.55-1.3); PHOSPHOROUS 2.5 mg/dL (2.5-4.9)
[2023-01-12 11:06] LABS: IRON SERUM 59 ug/dL (50-175)
[2023-01-12 11:07] LABS: BILIRUBIN,TOTAL 0.4 mg/dL (0.2-1); TOTAL IRON BINDING CAPACITY 238 ug/dL (250-450)
[2023-01-12] MEDS: LIDOCAINE 4% PATCH TP SCH (16:33)
[2023-01-12] MEDS: LIDOCAINE PATCH REMOVAL MC SCH (21:23)
[2023-01-12] MEDS: ATORVASTATIN CA 40 MG TABLET (FP) PO SCH (21:23)
[2023-01-13 10:19] LABS: HEMATOCRIT 29.7 % (35.4-49); HEMOGLOBIN 9.9 GM/dL (11.7-16.9); MCH 29.2 pg (25.7-33.7); MCHC 33.3 g/dl (32.0-35.9); MEAN CELL VOLUME 87.9 fl (80-96); MEAN PLT VOLUME 6.6 fl (7.5-11.1); PLATELET COUNT 259 10^3/uL (134-434); RBC 3.38 M/mm3 (4.00-5.60); WHITE BLOOD COUNT 6.4 K/mm3 (4.0-10.0)
[2023-01-13] MEDS: HEPARIN NA (PORCINE) 5,000 UNITS/ML 1ML VIAL SQ SCH ×2 (10:26→21:41)
[2023-01-13] MEDS: FUROSEMIDE 20 MG TABLET (FP) PO SCH (10:27)
[2023-01-13] MEDS: ASCORBIC ACID 250 MG TABLET (FP) PO SCH (10:27)
[2023-01-13] MEDS: LISINOPRIL 5 MG TABLET PO SCH (10:27)
[2023-01-13] MEDS: ASPIRIN 81 MG CHEWABLE TABLETS PO SCH (10:28)
[2023-01-13] MEDS: LIDOCAINE 4% PATCH TP SCH (10:28)
[2023-01-13] MEDS: MULTIVITAMINS (DAILY MVI) TABLET (FP) PO SCH (10:30)
[2023-01-13 10:37] LABS: POTASSIUM 3.7 mmol/L (3.5-5.1)
[2023-01-13 10:44] LABS: CALCIUM 8.2 mg/dL (8.5-10.1)
[2023-01-13 10:45] LABS: ALBUMIN 2.7 g/dl (3.4-5.0); BLOOD UREA NITROGEN 33.3 mg/dL (7-18); MAGNESIUM 2.1 mg/dL (1.8-2.4)
[2023-01-13 10:48] LABS: CREATININE 1.3 mg/dL (0.55-1.3); PHOSPHOROUS 2.6 mg/dL (2.5-4.9)
[2023-01-13 10:50] LABS: BILIRUBIN,TOTAL 0.3 mg/dL (0.2-1); TOT PROT 5.8 g/dl (6.4-8.2)
[2023-01-13] MEDS: ATORVASTATIN CA 40 MG TABLET (FP) PO SCH (21:41)
[2023-01-13] MEDS: LIDOCAINE PATCH REMOVAL MC SCH (21:42)
[2023-01-14] MEDS: MULTIVITAMINS (DAILY MVI) TABLET (FP) PO SCH (09:36)
[2023-01-14] MEDS: ASPIRIN 81 MG CHEWABLE TABLETS PO SCH (09:36)
[2023-01-14] MEDS: ASCORBIC ACID 250 MG TABLET (FP) PO SCH (09:36)
[2023-01-14] MEDS: LISINOPRIL 5 MG TABLET PO SCH (09:36)
[2023-01-14] MEDS: FUROSEMIDE 20 MG TABLET (FP) PO SCH (09:38)
[2023-01-14] MEDS: LIDOCAINE 4% PATCH TP SCH (09:38)
[2023-01-14] MEDS: HEPARIN NA (PORCINE) 5,000 UNITS/ML 1ML VIAL SQ SCH ×2 (09:38→21:08)
[2023-01-14 09:54] LABS: POTASSIUM 3.9 mmol/L (3.5-5.1)
[2023-01-14 09:57] LABS: HEMATOCRIT 30.6 % (35.4-49); HEMOGLOBIN 10.1 GM/dL (11.7-16.9); MEAN CELL VOLUME 87.9 fl (80-96); MEAN PLT VOLUME 6.6 fl (7.5-11.1); PLATELET COUNT 278 10^3/uL (134-434); RBC 3.48 M/mm3 (4.00-5.60); RDW 16.1 % (11.9-15.9); WHITE BLOOD COUNT 7.2 K/mm3 (4.0-10.0)
[2023-01-14 10:06] LABS: ALBUMIN 2.9 g/dl (3.4-5.0); MAGNESIUM 2.1 mg/dL (1.8-2.4)
[2023-01-14 10:07] LABS: PHOSPHOROUS 2.5 mg/dL (2.5-4.9)
[2023-01-14 10:08] LABS: BLOOD UREA NITROGEN 33.1 mg/dL (7-18); CREATININE 1.3 mg/dL (0.55-1.3)
[2023-01-14 10:09] LABS: TOT PROT 6.2 g/dl (6.4-8.2)
[2023-01-14 10:16] LABS: BILIRUBIN,TOTAL 0.5 mg/dL (0.2-1)
[2023-01-14 15:29] VITALS: BMI 18.2
[2023-01-14] MEDS: ATORVASTATIN CA 40 MG TABLET (FP) PO SCH (21:08)
[2023-01-14] MEDS: LIDOCAINE PATCH REMOVAL MC SCH (21:11)
[2023-01-15] MEDS: AMOX TR/POT CLAV 875MG/125MG TABLETS (FP) PO SCH ×2 (08:30→17:22)
[2023-01-15] MEDS: HEPARIN NA (PORCINE) 5,000 UNITS/ML 1ML VIAL SQ SCH ×2 (09:10→21:22)
[2023-01-15] MEDS: ASCORBIC ACID 250 MG TABLET (FP) PO SCH (09:11)
[2023-01-15] MEDS: MULTIVITAMINS (DAILY MVI) TABLET (FP) PO SCH (09:11)
[2023-01-15] MEDS: LIDOCAINE 4% PATCH TP SCH (09:11)
[2023-01-15] MEDS: ASPIRIN 81 MG CHEWABLE TABLETS PO SCH (09:20)
[2023-01-15 09:36] LABS: BASO % 0.6 % (0-2.0); HEMOGLOBIN 9.7 GM/dL (11.7-16.9); LYMPH % 25.9 % (8-40); MCH 29.9 pg (25.7-33.7); MCHC 34.7 g/dl (32.0-35.9); MEAN CELL VOLUME 86.2 fl (80-96); MEAN PLT VOLUME 6.4 fl (7.5-11.1); MONO % 8.8 % (3.8-10.2); NEUT % 62.7 % (42.8-82.8); PLATELET COUNT 235 10^3/uL (134-434); RBC 3.25 M/mm3 (4.00-5.60); WHITE BLOOD COUNT 6.8 K/mm3 (4.0-10.0)
[2023-01-15 09:56] LABS: POTASSIUM 4.1 mmol/L (3.5-5.1)
[2023-01-15 09:58] LABS: CALCIUM 8.2 mg/dL (8.5-10.1)
[2023-01-15 09:59] LABS: ALBUMIN 2.9 g/dl (3.4-5.0); BLOOD UREA NITROGEN 31.4 mg/dL (7-18)
[2023-01-15] MEDS ORDERED: DOXYCYCLINE HYCLATE 100 MG CAPSULE PO SCH (10:00)
[2023-01-15 10:02] LABS: CREATININE 1.2 mg/dL (0.55-1.3)
[2023-01-15 10:04] LABS: BILIRUBIN,TOTAL 0.7 mg/dL (0.2-1)
[2023-01-15] MEDS: LIDOCAINE PATCH REMOVAL MC SCH (21:22)
[2023-01-15] MEDS: ATORVASTATIN CA 40 MG TABLET (FP) PO SCH (21:22)
[2023-01-16] MEDS: AMOX TR/POT CLAV 875MG/125MG TABLETS (FP) PO SCH ×2 (08:39→17:12)
[2023-01-16] MEDS: ASPIRIN 81 MG CHEWABLE TABLETS PO SCH (09:03)
[2023-01-16] MEDS: ASCORBIC ACID 250 MG TABLET (FP) PO SCH (09:03)
[2023-01-16] MEDS: MULTIVITAMINS (DAILY MVI) TABLET (FP) PO SCH (09:03)
[2023-01-16] MEDS: HEPARIN NA (PORCINE) 5,000 UNITS/ML 1ML VIAL SQ SCH ×2 (09:03→21:30)
[2023-01-16] MEDS: LIDOCAINE 4% PATCH TP SCH (09:03)
[2023-01-16] MEDS: LISINOPRIL 5 MG TABLET PO SCH (09:09)
[2023-01-16 11:09] LABS: BASO % 0.3 % (0-2.0); HEMATOCRIT 28.5 % (35.4-49); HEMOGLOBIN 10.1 GM/dL (11.7-16.9); LYMPH % 8.6 % (8-40); MCH 30.4 pg (25.7-33.7); MCHC 35.5 g/dl (32.0-35.9); MEAN CELL VOLUME 85.7 fl (80-96); MEAN PLT VOLUME 6.6 fl (7.5-11.1); MONO % 6.5 % (3.8-10.2); NEUT % 82.6 % (42.8-82.8); PLATELET COUNT 268 10^3/uL (134-434); RBC 3.33 M/mm3 (4.00-5.60); RETICULOCYTES 1.28 % (0.5-1.5); WHITE BLOOD COUNT 7.5 K/mm3 (4.0-10.0)
[2023-01-16 11:32] LABS: POTASSIUM 3.9 mmol/L (3.5-5.1)
[2023-01-16 11:38] LABS: BLOOD UREA NITROGEN 33.6 mg/dL (7-18); CALCIUM 7.6 mg/dL (8.5-10.1)
[2023-01-16 11:39] LABS: ALBUMIN 2.7 g/dl (3.4-5.0)
[2023-01-16 11:41] LABS: PHOSPHOROUS 1.6 mg/dL (2.5-4.9)
[2023-01-16 11:42] LABS: CREATININE 1.3 mg/dL (0.55-1.3)
[2023-01-16 11:43] LABS: BILIRUBIN,TOTAL 0.4 mg/dL (0.2-1); TOT PROT 5.7 g/dl (6.4-8.2)
[2023-01-16] MEDS ORDERED: GABAPENTIN 100 MG CAPSULE PO ONE (12:02)
[2023-01-16] MEDS: NAPH,MB-DB/K PH,MBDB POWDER PACKET PO SCH ×3 (16:21→22:27)
[2023-01-16] MEDS: ATORVASTATIN CA 40 MG TABLET (FP) PO SCH (21:29)
[2023-01-16] MEDS: GABAPENTIN 100 MG CAPSULE PO SCH (21:30)
[2023-01-16] MEDS: LIDOCAINE PATCH REMOVAL MC SCH (21:34)
[2023-01-17] MEDS: NAPH,MB-DB/K PH,MBDB POWDER PACKET PO SCH (02:59)
[2023-01-17 07:09] LABS: FREE KAP CHN UR 68.37 mg/L (1.17-86.46); KAPPA LAMBDA RATIO URIN 8.68 (1.83-14.26)
[2023-01-17] MEDS: AMOX TR/POT CLAV 875MG/125MG TABLETS (FP) PO SCH (08:29)
[2023-01-17 08:58] LABS: HEMATOCRIT 30.2 % (35.4-49); HEMOGLOBIN 10.3 GM/dL (11.7-16.9); MCH 29.6 pg (25.7-33.7); MCHC 34.1 g/dl (32.0-35.9); MEAN CELL VOLUME 86.8 fl (80-96); MEAN PLT VOLUME 6.6 fl (7.5-11.1); PLATELET COUNT 274 10^3/uL (134-434); RBC 3.48 M/mm3 (4.00-5.60); RDW 16.2 % (11.9-15.9); WHITE BLOOD COUNT 7.7 K/mm3 (4.0-10.0)
[2023-01-17 09:11] LABS: ALBUMIN 2.8 g/dl (3.4-5.0); BLOOD UREA NITROGEN 35.5 mg/dL (7-18); MAGNESIUM 2.3 mg/dL (1.8-2.4)
[2023-01-17 09:14] LABS: CREATININE 1.2 mg/dL (0.55-1.3)
[2023-01-17 09:16] LABS: BILIRUBIN,TOTAL 0.5 mg/dL (0.2-1); TOT PROT 5.9 g/dl (6.4-8.2)
[2023-01-17] MEDS: HEPARIN NA (PORCINE) 5,000 UNITS/ML 1ML VIAL SQ SCH ×2 (09:22→21:37)
[2023-01-17] MEDS: LISINOPRIL 5 MG TABLET PO SCH (09:23)
[2023-01-17] MEDS: MULTIVITAMINS (DAILY MVI) TABLET (FP) PO SCH (09:23)
[2023-01-17] MEDS: GABAPENTIN 100 MG CAPSULE PO SCH ×2 (09:23→21:37)
[2023-01-17] MEDS: ASPIRIN 81 MG CHEWABLE TABLETS PO SCH (09:23)
[2023-01-17] MEDS: FUROSEMIDE 20 MG TABLET (FP) PO SCH (09:23)
[2023-01-17] MEDS: ASCORBIC ACID 250 MG TABLET (FP) PO SCH (09:23)
[2023-01-17] MEDS: LIDOCAINE 4% PATCH TP SCH (09:23)
[2023-01-17 18:16] LABS: FREE KAPPA,SERUM 67.3 mg/L (3.3-19.4)
[2023-01-17] MEDS: ATORVASTATIN CA 40 MG TABLET (FP) PO SCH (21:37)
[2023-01-17] MEDS: LIDOCAINE PATCH REMOVAL MC SCH (21:39)
[2023-01-18 06:23] VITALS: RESP 18
[2023-01-18] MEDS ORDERED: EMPAGLIFLOZIN (JARDIANCE) 10 MG TABLET PO SCH (07:00)
[2023-01-18] MEDS: GABAPENTIN 100 MG CAPSULE PO SCH (09:18)
[2023-01-18] MEDS: LISINOPRIL 5 MG TABLET PO SCH (09:18)
[2023-01-18] MEDS: ASCORBIC ACID 250 MG TABLET (FP) PO SCH (09:18)
[2023-01-18] MEDS: HEPARIN NA (PORCINE) 5,000 UNITS/ML 1ML VIAL SQ SCH (09:19)
[2023-01-18] MEDS: LIDOCAINE 4% PATCH TP SCH (09:19)
[2023-01-18] MEDS: MULTIVITAMINS (DAILY MVI) TABLET (FP) PO SCH (09:19)
[2023-01-18] MEDS: ASPIRIN 81 MG CHEWABLE TABLETS PO SCH (09:19)
[2023-01-18] MEDS: FUROSEMIDE 20 MG TABLET (FP) PO SCH (09:48)
[2023-01-18] MEDS ORDERED: metoPROLOL SUCCINATE 25 MG TAB.SR.24H (FP) PO SCH ×2 (10:00→12:00)
[2023-01-18 14:33] VITALS: BP 114/44; PULSE 85; TEMP 98
== END 2023-01-18 18:59 | DRG 73 ==
LOC: JER 04:33 → UNDOADMOB 10:08 → INTOOBSV 10:08 → JERBED 10:08 → J6S 14:12 → INTOOBSV 01-09 10:17 → OBSVTOIN 01-09 10:17 → J6S 01-11 00:16
PROVIDERS: ADMIT Internal Medicine; ATTEND Internal Medicine
DX: G62.89 Other specified polyneuropathies (principal); E43 Unspecified severe protein-calorie malnutrition; G72.0 Drug-induced myopathy; N17.9 Acute kidney failure, unspecified; I13.0 Hypertensive heart and chronic kidney disease with heart failure and stage 1 through stage 4 chronic kidney disease, or unspecified chronic kidney disease; I50.22 Chronic systolic (congestive) heart failure; G91.2 (Idiopathic) normal pressure hydrocephalus; Z68.1 Body mass index [BMI] 19.9 or less, adult; T38.0X5A Adverse effect of glucocorticoids and synthetic analogues, initial encounter; D72.829 Elevated white blood cell count, unspecified; R32 Unspecified urinary incontinence; N40.0 Benign prostatic hyperplasia without lower urinary tract symptoms; R73.9 Hyperglycemia, unspecified; D63.8 Anemia in other chronic diseases classified elsewhere; N18.9 Chronic kidney disease, unspecified; R35.1 Nocturia; R26.81 Unsteadiness on feet; M17.12 Unilateral primary osteoarthritis, left knee; W17.89XA Other fall from one level to another, initial encounter; Y92.098 Other place in other non-institutional residence as the place of occurrence of the external cause
CPT/HCPCS: 0241U-QW; 36415; 70450-TC; 71045-TC-FY; 72125-TC; 72128-TC; 72131-TC; 72141-TC; 72148-TC; 73564-TC-LT-FY; 74176-TC; 74230-TC-FY; 80048; 80053; 81003; 82550; 82553; 82607; 82728; 82746; 82784; 83036; 83540; 83550; 83605; 83735; 83880; 83883; 84100; 84155; 84165; 84443; 84484; 85025; 85027; 85045; 85610; 85730; 86780; 86850; 86900; 86901; 87086; 87635; 92611-GN; 93005; 93010; 97116-GP; 97162-GP; 99285-25; G0378; J1644

== ENCOUNTER 2023-02-26 22:10 | Inpatient (IN) | payer OTHER ==
[2023-02-26] MEDS ORDERED: VANCOMYCIN HCL 1,500 MG in DEXTROSE 5%-WATER - 500 ML IVPB ONE (22:44)
[2023-02-26] MEDS ORDERED: PIPERACILLIN/TAZOB 4.5 GM 4.5 GM in DEXTROSE 5%-WATER 100 ML IVPB ONE (22:44)
[2023-02-26] MEDS ORDERED: ACETAMINOPHEN 1000 MG/100 ML BAG IVPB ONE (22:44)
[2023-02-26] MEDS ORDERED: ACETAMINOPHEN INJECTION 100 ML IVPB ONE (22:55)
[2023-02-26] MEDS ORDERED: PIPERACILLIN/TAZOB 4.5 GM 4.5 GM/100 ML BAG IVPB ONE (22:56)
[2023-02-26 23:03] LABS: VENOUS BASE EXCESS -2.6 mmol/L (-2-2); VENOUS O2 SATURATION 23.1 % (70-80); VENOUS PCO2 39.1 mmHg (38-52); VENOUS PH 7.374 (7.310-7.410)
[2023-02-26 23:08] LABS: BASO % 0.6 % (0-2.0); HEMATOCRIT 35.2 % (35.4-49); HEMOGLOBIN 11.7 GM/dL (11.7-16.9); LYMPH % 5.5 % (8-40); MCH 29.9 pg (25.7-33.7); MCHC 33.4 g/dl (32.0-35.9); MEAN CELL VOLUME 89.5 fl (80-96); MONO % 7.9 % (3.8-10.2); PLATELET COUNT 262 10^3/uL (134-434); RBC 3.93 M/mm3 (4.00-5.60); RDW 14.6 % (11.9-15.9); WHITE BLOOD COUNT 11.1 K/mm3 (4.0-10.0)
[2023-02-26 23:15] LABS: INR 1.06 (0.83-1.09); PROTHROMBIN TIME (PATIENT) 12.3 SEC (9.7-13.0)
[2023-02-26 23:18] LABS: ACTIVATED PTT 36.3 SECONDS (25.2-36.5)
[2023-02-26] MEDS ORDERED: VANCOMYCIN PREMIX 1.5 GM 1,500 MG/300 ML BAG IVPB ONE (23:27)
[2023-02-26 23:35] LABS: POTASSIUM 4.2 mmol/L (3.5-5.1)
[2023-02-26 23:37] LABS: ALBUMIN 2.9 g/dl (3.4-5.0); CALCIUM 8.5 mg/dL (8.5-10.1)
[2023-02-26 23:38] LABS: BLOOD UREA NITROGEN 36.2 mg/dL (7-18)
[2023-02-26 23:41] LABS: CREATININE 2.2 mg/dL (0.55-1.3)
[2023-02-26 23:42] LABS: BILIRUBIN,TOTAL 0.4 mg/dL (0.2-1); TOT PROT 6.3 g/dl (6.4-8.2)
[2023-02-26 23:56] LABS: LACTIC ACID 3.2 mmol/L (0.4-2.0)
[2023-02-27] MEDS ORDERED: SODIUM CHLORIDE 250 ML IV STA ×2 (00:06→01:21)
[2023-02-27 01:13] LABS: LACTIC ACID 2.2 mmol/L (0.4-2.0)
[2023-02-27 01:19] LABS: EPI CELLS 0 /uL (0-25.1); HYALINE CASTS 0 /uL (0-3.1); PH,URINE 5.5 (5.0-8.0); URINE BACTERIA 1835 /uL (0-1359); URINE BILIRUBIN NEGATIVE (NEGATIVE); URINE COLOR YELLOW; URINE GLUCOSE (UA) 1+ (NEGATIVE); URINE KETONE NEGATIVE (NEGATIVE); URINE LEUK ESTERASE 3+ (NEGATIVE); URINE NITRITE NEGATIVE (NEGATIVE); URINE PROTEIN 3+ (NEGATIVE); URINE UROBILINOGEN 0.2 mg/dL (0.2-1.0); URINE WBC 17950 /uL (0-25.8)
[2023-02-27 02:53] LABS: URINE APPEARANCE CLOUDY; YEAST NONE SEEN (NEGATIVE)
[2023-02-27] MEDS ORDERED: SODIUM CHLORIDE 500 ML IV STA (03:03)
[2023-02-27] MEDS ORDERED: HEPARIN NA (PORCINE) 5,000 UNITS/ML 1ML VIAL ONE (05:24)
[2023-02-27] MEDS: HEPARIN NA (PORCINE) 5,000 UNITS/ML 1ML VIAL SQ SCH ×3 (05:29→22:29)
[2023-02-27 06:18] LABS: BASO % 0.4 % (0-2.0); HEMATOCRIT 31.6 % (35.4-49); HEMOGLOBIN 10.3 GM/dL (11.7-16.9); LYMPH % 7.4 % (8-40); MCH 29.5 pg (25.7-33.7); MCHC 32.5 g/dl (32.0-35.9); MEAN CELL VOLUME 90.7 fl (80-96); MEAN PLT VOLUME 6.7 fl (7.5-11.1); NEUT % 88.2 % (42.8-82.8); PLATELET COUNT 220 10^3/uL (134-434); RBC 3.49 M/mm3 (4.00-5.60); RDW 14.5 % (11.9-15.9); WHITE BLOOD COUNT 7.7 K/mm3 (4.0-10.0)
[2023-02-27 06:37] LABS: ALBUMIN 2.5 g/dl (3.4-5.0); BLOOD UREA NITROGEN 37.3 mg/dL (7-18); CALCIUM 7.3 mg/dL (8.5-10.1)
[2023-02-27 06:40] LABS: CREATININE 2.2 mg/dL (0.55-1.3)
[2023-02-27 06:42] LABS: BILIRUBIN,TOTAL 0.6 mg/dL (0.2-1); TOT PROT 5.5 g/dl (6.4-8.2)
[2023-02-27] MEDS ORDERED: SODIUM CHLORIDE 1,000 ML IV SCH (08:45)
[2023-02-27] MEDS ORDERED: PIPERACILLIN/TAZOB 3.375 GM 3.375 GM in DEXTROSE 5%-WATER - 50 ML IVPB SCH (10:00)
[2023-02-27] MEDS ORDERED: PATIENT'S OWN MEDICATION (NON-FORMULARY) (Menthol/Zinc Oxide [Calmoseptine Ointment] 71 GM TP SCH (10:00)
[2023-02-27] MEDS ORDERED: VANCOMYCIN 1,000 MG in DEXTROSE 5%-WATER - 250 ML IVPB SCH (10:00)
[2023-02-27] MEDS: GABAPENTIN 100 MG CAPSULE PO SCH ×2 (10:55→22:29)
[2023-02-27] MEDS: ASPIRIN 81 MG CHEWABLE TABLETS PO SCH (10:55)
[2023-02-27] MEDS ORDERED: PIPERACILLIN/TAZOB 3.375 GM 3.375 GM/50 ML BAG IVPB ONE (10:56)
[2023-02-27] MEDS ORDERED: ACETAMINOPHEN 325 MG TABLET (FP) ONE (11:21)
[2023-02-27] MEDS: ACETAMINOPHEN 325 MG TABLET (FP) PO PRN ×2 (11:23→15:29)
[2023-02-27] MEDS: PIPERACILLIN/TAZOB 2.25 GM 2.25 GM in DEXTROSE 5%-WATER - 50 ML IVPB SCH (17:12)
[2023-02-27] MEDS: ATORVASTATIN CA 40 MG TABLET (FP) PO SCH (22:29)
[2023-02-27] MEDS ORDERED: VANCOMYCIN/WATER FOR INJ (PEG) 1,000 MG/200 ML BAG IVPB SCH (23:00)
[2023-02-28] MEDS: PIPERACILLIN/TAZOB 2.25 GM 2.25 GM in DEXTROSE 5%-WATER - 50 ML IVPB SCH ×2 (02:45→09:19)
[2023-02-28] MEDS: HEPARIN NA (PORCINE) 5,000 UNITS/ML 1ML VIAL SQ SCH ×3 (05:34→21:17)
[2023-02-28] MEDS ORDERED: LACTATED RINGERS SOLUTION 1,000 ML/1,000 ML INFUS.BAG IV SCH (08:30)
[2023-02-28] MEDS: TAMSULOSIN HCL 0.4 MG CAP PO SCH (09:18)
[2023-02-28] MEDS: GABAPENTIN 100 MG CAPSULE PO SCH ×2 (09:19→21:17)
[2023-02-28] MEDS: ASPIRIN 81 MG CHEWABLE TABLETS PO SCH (09:19)
[2023-02-28] MEDS: FINASTERIDE 5 MG TABLET (FP) PO SCH (09:19)
[2023-02-28] MEDS ORDERED: METOPROLOL TARTRATE 25 MG TABLET (FP) PO SCH (10:00)
[2023-02-28] MEDS: CEFTRIAXONE 1 GM in DEXTROSE 5%-WATER - 50 ML IVPB SCH (11:32)
[2023-02-28] MEDS: ATORVASTATIN CA 40 MG TABLET (FP) PO SCH (21:17)
[2023-03-01] MEDS: HEPARIN NA (PORCINE) 5,000 UNITS/ML 1ML VIAL SQ SCH ×3 (05:03→21:29)
[2023-03-01 06:54] LABS: BASO % 0.5 % (0-2.0); EOS % 0.8 % (0-4.5); HEMATOCRIT 24.6 % (35.4-49); HEMOGLOBIN 8.4 GM/dL (11.7-16.9); LYMPH % 16.6 % (8-40); MCH 30.2 pg (25.7-33.7); MCHC 34.1 g/dl (32.0-35.9); MEAN CELL VOLUME 88.4 fl (80-96); MEAN PLT VOLUME 6.9 fl (7.5-11.1); MONO % 6.7 % (3.8-10.2); NEUT % 75.4 % (42.8-82.8); PLATELET COUNT 166 10^3/uL (134-434); RBC 2.79 M/mm3 (4.00-5.60); RDW 14.4 % (11.9-15.9); WHITE BLOOD COUNT 4.4 K/mm3 (4.0-10.0)
[2023-03-01 07:49] LABS: ALBUMIN 2.1 g/dl (3.4-5.0); BILIRUBIN,TOTAL 0.4 mg/dL (0.2-1); BLOOD UREA NITROGEN 31.3 mg/dL (7-18); CALCIUM 7.3 mg/dL (8.5-10.1); CREATININE 1.6 mg/dL (0.55-1.3); POTASSIUM 3.6 mmol/L (3.5-5.1); TOT PROT 4.9 g/dl (6.4-8.2)
[2023-03-01] MEDS: TAMSULOSIN HCL 0.4 MG CAP PO SCH (08:52)
[2023-03-01] MEDS: GABAPENTIN 100 MG CAPSULE PO SCH ×2 (09:38→21:29)
[2023-03-01] MEDS: FINASTERIDE 5 MG TABLET (FP) PO SCH (09:38)
[2023-03-01] MEDS: CEFTRIAXONE 1 GM in DEXTROSE 5%-WATER - 50 ML IVPB SCH (09:38)
[2023-03-01] MEDS: ASPIRIN 81 MG CHEWABLE TABLETS PO SCH (09:38)
[2023-03-01] MEDS: ERTAPENEM SODIUM 1 GM in SODIUM CHLORIDE 50 ML IVPB SCH (17:33)
[2023-03-01] MEDS: ATORVASTATIN CA 40 MG TABLET (FP) PO SCH (21:29)
[2023-03-01] MEDS: METHIMAZOLE 5 MG TABLET PO SCH (21:29)
[2023-03-02] MEDS: HEPARIN NA (PORCINE) 5,000 UNITS/ML 1ML VIAL SQ SCH ×3 (06:17→21:04)
[2023-03-02] MEDS: METHIMAZOLE 5 MG TABLET PO SCH ×2 (06:17→16:41)
[2023-03-02 07:01] LABS: HEMATOCRIT 24.1 % (35.4-49); HEMOGLOBIN 8.4 GM/dL (11.7-16.9); MCH 30.8 pg (25.7-33.7); MCHC 34.7 g/dl (32.0-35.9); MEAN CELL VOLUME 88.7 fl (80-96); MEAN PLT VOLUME 6.8 fl (7.5-11.1); PLATELET COUNT 166 10^3/uL (134-434); RBC 2.72 M/mm3 (4.00-5.60); RDW 13.9 % (11.9-15.9)
[2023-03-02 07:19] LABS: POTASSIUM 3.4 mmol/L (3.5-5.1)
[2023-03-02 07:21] LABS: CALCIUM 7.2 mg/dL (8.5-10.1)
[2023-03-02 07:22] LABS: ALBUMIN 2.1 g/dl (3.4-5.0); BLOOD UREA NITROGEN 21.4 mg/dL (7-18)
[2023-03-02 07:25] LABS: CREATININE 1.4 mg/dL (0.55-1.3)
[2023-03-02 07:26] LABS: BILIRUBIN,TOTAL 0.3 mg/dL (0.2-1)
[2023-03-02 07:27] LABS: TOT PROT 4.9 g/dl (6.4-8.2)
[2023-03-02] MEDS ORDERED: POTASSIUM CHLORIDE ORAL LIQUID 20 MEQ/15 ML PO ONE (08:45)
[2023-03-02] MEDS: FINASTERIDE 5 MG TABLET (FP) PO SCH (09:08)
[2023-03-02] MEDS: ASPIRIN 81 MG CHEWABLE TABLETS PO SCH (09:08)
[2023-03-02] MEDS: TAMSULOSIN HCL 0.4 MG CAP PO SCH (09:08)
[2023-03-02] MEDS: GABAPENTIN 100 MG CAPSULE PO SCH ×2 (09:08→21:04)
[2023-03-02] MEDS ORDERED: metoPROLOL SUCCINATE 25 MG TAB.SR.24H (FP) PO SCH (10:00)
[2023-03-02] MEDS: ERTAPENEM SODIUM 1 GM in SODIUM CHLORIDE 50 ML IVPB SCH (10:10)
[2023-03-02 18:05] VITALS: RESP 18
[2023-03-02 20:06] VITALS: BP 144/66; PULSE 98; TEMP 98.8
[2023-03-02] MEDS: ATORVASTATIN CA 40 MG TABLET (FP) PO SCH (21:04)
[2023-03-02 21:45] VITALS: BMI 19.0
== END 2023-03-03 00:50 | DRG 871 ==
LOC: JER 22:10 → JERBED 02-27 01:18 → J4W 02-27 14:29
PROVIDERS: ADMIT Internal Medicine; ATTEND Internal Medicine
DX: A41.89 Other specified sepsis (principal); G93.41 Metabolic encephalopathy; N39.0 Urinary tract infection, site not specified; I13.0 Hypertensive heart and chronic kidney disease with heart failure and stage 1 through stage 4 chronic kidney disease, or unspecified chronic kidney disease; I50.22 Chronic systolic (congestive) heart failure; N17.9 Acute kidney failure, unspecified; R41.82 Altered mental status, unspecified; R50.9 Fever, unspecified; J44.9 Chronic obstructive pulmonary disease, unspecified; R00.2 Palpitations; B96.20 Unspecified Escherichia coli [E. coli] as the cause of diseases classified elsewhere; I44.0 Atrioventricular block, first degree; N18.9 Chronic kidney disease, unspecified; E11.22 Type 2 diabetes mellitus with diabetic chronic kidney disease; E78.5 Hyperlipidemia, unspecified; I48.91 Unspecified atrial fibrillation; N40.1 Benign prostatic hyperplasia with lower urinary tract symptoms; R35.1 Nocturia; R33.8 Other retention of urine; E05.90 Thyrotoxicosis, unspecified without thyrotoxic crisis or storm; R13.12 Dysphagia, oropharyngeal phase
CPT/HCPCS: 0241U-QW; 36415; 70450-TC; 71045-TC-FY; 76775-TC; 80053; 80061; 81003; 82272; 82308; 82550; 82553; 82803; 83605; 84439; 84443; 84481; 84484; 85025; 85027; 85610; 85730; 86140; 86850; 86900; 86901; 87040; 87045; 87046; 87086; 87186; 93005; 93010; 93306-TC; 97116-GP; 97162-GP; 99285-25; J1644

== ENCOUNTER 2023-03-22 20:54 | Inpatient (IN) | payer OTHER ==
[2023-03-22 22:23] LABS: BASO % 1.3 % (0-2.0); HEMATOCRIT 29.6 % (35.4-49); HEMOGLOBIN 9.7 GM/dL (11.7-16.9); LYMPH % 11.7 % (8-40); MCH 29.1 pg (25.7-33.7); MCHC 32.7 g/dl (32.0-35.9); MEAN CELL VOLUME 88.9 fl (80-96); MEAN PLT VOLUME 6.6 fl (7.5-11.1); MONO % 13.6 % (3.8-10.2); NEUT % 73.4 % (42.8-82.8); PLATELET COUNT 189 10^3/uL (134-434); RBC 3.33 M/mm3 (4.00-5.60); RDW 14.9 % (11.9-15.9); WHITE BLOOD COUNT 4.4 K/mm3 (4.0-10.0)
[2023-03-22 22:32] LABS: INR 1.1 (0.83-1.09); PROTHROMBIN TIME (PATIENT) 12.7 SEC (9.7-13.0)
[2023-03-22 22:42] LABS: POTASSIUM 4.1 mmol/L (3.5-5.1)
[2023-03-22 22:44] LABS: ALBUMIN 2.6 g/dl (3.4-5.0); BLOOD UREA NITROGEN 35.4 mg/dL (7-18); CALCIUM 7.9 mg/dL (8.5-10.1); MAGNESIUM 1.8 mg/dL (1.8-2.4)
[2023-03-22 22:48] LABS: CREATININE 1.4 mg/dL (0.55-1.3)
[2023-03-22 22:49] LABS: BILIRUBIN,TOTAL 0.2 mg/dL (0.2-1); TOT PROT 5.7 g/dl (6.4-8.2)
[2023-03-22 22:52] LABS: N-TERMINAL BNP 3102.6 pg/ml (5-450)
[2023-03-22 23:56] LABS: EPI CELLS 4 /uL (0-25.1); HYALINE CASTS 2 /uL (0-3.1); PH,URINE 5.5 (5.0-8.0); URINE APPEARANCE CLOUDY; URINE BACTERIA 61 /uL (0-1359); URINE BILIRUBIN NEGATIVE (NEGATIVE); URINE COLOR YELLOW; URINE GLUCOSE (UA) 3+ (NEGATIVE); URINE KETONE NEGATIVE (NEGATIVE); URINE LEUK ESTERASE 2+ (NEGATIVE); URINE NITRITE NEGATIVE (NEGATIVE); URINE PROTEIN 2+ (NEGATIVE); URINE UROBILINOGEN 0.2 mg/dL (0.2-1.0); URINE WBC 1744 /uL (0-25.8)
[2023-03-23] MEDS ORDERED: MEROPENEM 1 GM in DEXTROSE 5%-WATER 100 ML IVPB ONE (01:06)
[2023-03-23] MEDS ORDERED: ALBUTEROL SO4 HFA INHALER IH PRN (02:01)
[2023-03-23] MEDS ORDERED: guaiFENesin 200 MG/10 ML 10 ML UNIT-DOSE CUPS PO PRN (02:01)
[2023-03-23] MEDS ORDERED: ACETAMINOPHEN 325 MG TABLET (FP) PO PRN (02:01)
[2023-03-23] MEDS ORDERED: REMDESIVIR 200 MG in SODIUM CHLORIDE 250 ML IVPB ONE (03:00)
[2023-03-23] MEDS ORDERED: MEROPENEM 1 GM VIAL (RESTRICTED TO ID) IVPB ONE ×3 (03:36→22:23)
[2023-03-23 05:50] LABS: YEAST NONE SEEN (NEGATIVE)
[2023-03-23 05:51] LABS: URINE RBC 2269.4 /uL (0-23.9)
[2023-03-23] MEDS: FINASTERIDE 5 MG TABLET (FP) PO SCH (09:00)
[2023-03-23] MEDS: TAMSULOSIN HCL 0.4 MG CAP PO SCH (09:00)
[2023-03-23] MEDS: ASPIRIN 81 MG CHEWABLE TABLETS PO SCH (09:00)
[2023-03-23] MEDS: metoPROLOL SUCCINATE 25 MG TAB.SR.24H (FP) PO SCH (09:05)
[2023-03-23] MEDS: MEROPENEM 1 GM in DEXTROSE 5%-WATER 100 ML IVPB SCH ×2 (11:50→22:44)
[2023-03-23] MEDS ORDERED: ATORVASTATIN CA 40 MG TABLET (FP) ONE (22:23)
[2023-03-23] MEDS: ATORVASTATIN CA 40 MG TABLET (FP) PO SCH (22:44)
[2023-03-24 10:02] LABS: BASO % 0.6 % (0-2.0); EOS % 0.2 % (0-4.5); HEMATOCRIT 27.5 % (35.4-49); HEMOGLOBIN 9.3 GM/dL (11.7-16.9); LYMPH % 19.9 % (8-40); MCH 29.7 pg (25.7-33.7); MCHC 33.9 g/dl (32.0-35.9); MEAN CELL VOLUME 87.6 fl (80-96); MEAN PLT VOLUME 7.1 fl (7.5-11.1); MONO % 11.9 % (3.8-10.2); NEUT % 67.4 % (42.8-82.8); PLATELET COUNT 161 10^3/uL (134-434); RBC 3.14 M/mm3 (4.00-5.60); RDW 14.9 % (11.9-15.9); WHITE BLOOD COUNT 3.1 K/mm3 (4.0-10.0)
[2023-03-24] MEDS ORDERED: MEROPENEM 1 GM VIAL (RESTRICTED TO ID) IVPB ONE (10:07)
[2023-03-24 10:30] LABS: POTASSIUM 4.3 mmol/L (3.5-5.1)
[2023-03-24] MEDS: TAMSULOSIN HCL 0.4 MG CAP PO SCH (10:32)
[2023-03-24] MEDS: ASPIRIN 81 MG CHEWABLE TABLETS PO SCH (10:32)
[2023-03-24] MEDS: FINASTERIDE 5 MG TABLET (FP) PO SCH (10:32)
[2023-03-24] MEDS: metoPROLOL SUCCINATE 25 MG TAB.SR.24H (FP) PO SCH (10:32)
[2023-03-24] MEDS: MEROPENEM 1 GM in DEXTROSE 5%-WATER 100 ML IVPB SCH (10:34)
[2023-03-24 10:35] LABS: ALBUMIN 2.4 g/dl (3.4-5.0)
[2023-03-24 10:37] LABS: CALCIUM 7.5 mg/dL (8.5-10.1)
[2023-03-24 10:38] LABS: BILIRUBIN,TOTAL 0.4 mg/dL (0.2-1); BLOOD UREA NITROGEN 32.8 mg/dL (7-18); MAGNESIUM 1.9 mg/dL (1.8-2.4); PHOSPHOROUS 3.2 mg/dL (2.5-4.9)
[2023-03-24 10:39] LABS: CREATININE 1.2 mg/dL (0.55-1.3)
[2023-03-24 10:41] LABS: TOT PROT 5.3 g/dl (6.4-8.2)
[2023-03-24] MEDS: REMDESIVIR 100 MG in SODIUM CHLORIDE 250 ML IVPB SCH (11:17)
[2023-03-24] MEDS: ATORVASTATIN CA 40 MG TABLET (FP) PO SCH (21:07)
[2023-03-25] MEDS: metoPROLOL SUCCINATE 25 MG TAB.SR.24H (FP) PO SCH (09:44)
[2023-03-25] MEDS: ASPIRIN 81 MG CHEWABLE TABLETS PO SCH (09:45)
[2023-03-25] MEDS: FINASTERIDE 5 MG TABLET (FP) PO SCH (09:45)
[2023-03-25] MEDS: TAMSULOSIN HCL 0.4 MG CAP PO SCH (09:45)
[2023-03-25] MEDS ORDERED: SODIUM CHLORIDE 0.9% 500 ML INFUS.BAG IV ONE (09:53)
[2023-03-25] MEDS: REMDESIVIR 100 MG in SODIUM CHLORIDE 250 ML IVPB SCH (10:30)
[2023-03-25] MEDS ORDERED: CEFTRIAXONE 1 GM in DEXTROSE 5%-WATER - 50 ML IVPB SCH (11:30)
[2023-03-25] MEDS: ATORVASTATIN CA 40 MG TABLET (FP) PO SCH (22:02)
[2023-03-26] MEDS: TAMSULOSIN HCL 0.4 MG CAP PO SCH (10:55)
[2023-03-26] MEDS: HEPARIN NA (PORCINE) 5,000 UNITS/ML 1ML VIAL SQ SCH ×2 (10:55→21:22)
[2023-03-26] MEDS: ASPIRIN 81 MG CHEWABLE TABLETS PO SCH (10:55)
[2023-03-26] MEDS: FINASTERIDE 5 MG TABLET (FP) PO SCH (10:55)
[2023-03-26] MEDS: metoPROLOL SUCCINATE 25 MG TAB.SR.24H (FP) PO SCH (10:55)
[2023-03-26] MEDS: guaiFENesin/CODEINE 5 ML UNIT-DOSE CUPS PO SCH ×2 (14:44→21:24)
[2023-03-26] MEDS: ATORVASTATIN CA 40 MG TABLET (FP) PO SCH (21:22)
[2023-03-27] MEDS: FINASTERIDE 5 MG TABLET (FP) PO SCH (09:26)
[2023-03-27] MEDS: HEPARIN NA (PORCINE) 5,000 UNITS/ML 1ML VIAL SQ SCH ×2 (09:26→22:35)
[2023-03-27] MEDS: ASPIRIN 81 MG CHEWABLE TABLETS PO SCH (09:26)
[2023-03-27] MEDS: TAMSULOSIN HCL 0.4 MG CAP PO SCH (09:26)
[2023-03-27] MEDS: guaiFENesin/CODEINE 5 ML UNIT-DOSE CUPS PO SCH ×2 (09:26→22:35)
[2023-03-27] MEDS: metoPROLOL SUCCINATE 25 MG TAB.SR.24H (FP) PO SCH (09:26)
[2023-03-27 16:13] VITALS: BMI 16.9
[2023-03-27] MEDS: ATORVASTATIN CA 40 MG TABLET (FP) PO SCH (22:36)
[2023-03-28] MEDS ORDERED: MELATONIN 5 MG TABLETS PO PRN (00:13)
[2023-03-28] MEDS: guaiFENesin/CODEINE 5 ML UNIT-DOSE CUPS PO SCH (09:49)
[2023-03-28] MEDS: TAMSULOSIN HCL 0.4 MG CAP PO SCH (09:49)
[2023-03-28] MEDS: metoPROLOL SUCCINATE 25 MG TAB.SR.24H (FP) PO SCH (09:49)
[2023-03-28] MEDS: HEPARIN NA (PORCINE) 5,000 UNITS/ML 1ML VIAL SQ SCH (09:49)
[2023-03-28] MEDS: FINASTERIDE 5 MG TABLET (FP) PO SCH (09:49)
[2023-03-28] MEDS: ASPIRIN 81 MG CHEWABLE TABLETS PO SCH (09:49)
[2023-03-28] MEDS ORDERED: MEGESTROL ACETATE 40 MG TABLET PO SCH (10:00)
[2023-03-28] MEDS ORDERED: MEGESTROL ACETATE 400 MG/10 ML UNIT DOSE CUP PO SCH (10:00)
[2023-03-28 10:23] LABS: HEMATOCRIT 29.1 % (35.4-49); HEMOGLOBIN 9.7 GM/dL (11.7-16.9); MCH 29.4 pg (25.7-33.7); MCHC 33.2 g/dl (32.0-35.9); MEAN CELL VOLUME 88.6 fl (80-96); MEAN PLT VOLUME 7.1 fl (7.5-11.1); PLATELET COUNT 162 10^3/uL (134-434); RBC 3.28 M/mm3 (4.00-5.60); RDW 14.5 % (11.9-15.9); WHITE BLOOD COUNT 4.7 K/mm3 (4.0-10.0)
[2023-03-28 14:44] LABS: POTASSIUM 3.8 mmol/L (3.5-5.1)
[2023-03-28 14:47] LABS: CALCIUM 8.1 mg/dL (8.5-10.1)
[2023-03-28 14:48] LABS: ALBUMIN 2.6 g/dl (3.4-5.0); BLOOD UREA NITROGEN 26.1 mg/dL (7-18)
[2023-03-28 14:51] LABS: CREATININE 1.2 mg/dL (0.55-1.3)
[2023-03-28 14:52] LABS: BILIRUBIN,TOTAL 0.6 mg/dL (0.2-1)
[2023-03-28 14:53] LABS: TOT PROT 5.4 g/dl (6.4-8.2)
[2023-03-28 15:35] VITALS: RESP 18
[2023-03-28 17:01] VITALS: BP 103/67; PULSE 85; TEMP 98.6
== END 2023-03-28 18:59 | disposition home or self-care (01) | DRG 177 ==
LOC: JER 20:54 → JERBED 23:37 → OBSVTOIN 03-24 13:43 → J8W 03-25 03:09
PROVIDERS: ADMIT Internal Medicine; ATTEND Nurse Practitioner Family
PROC: XW033E5 Introduction of Remdesivir Anti-infective into Peripheral Vein, Percutaneous Approach, New Technology Group 5 (ICD-10-PCS; principal; 2023-03-23)
DX: U07.1 COVID-19 (principal); E43 Unspecified severe protein-calorie malnutrition; G93.49 Other encephalopathy; I13.0 Hypertensive heart and chronic kidney disease with heart failure and stage 1 through stage 4 chronic kidney disease, or unspecified chronic kidney disease; I50.22 Chronic systolic (congestive) heart failure; N17.9 Acute kidney failure, unspecified; Z68.1 Body mass index [BMI] 19.9 or less, adult; E86.0 Dehydration; N40.1 Benign prostatic hyperplasia with lower urinary tract symptoms; R33.8 Other retention of urine; D63.1 Anemia in chronic kidney disease; E78.5 Hyperlipidemia, unspecified; R29.6 Repeated falls; N18.2 Chronic kidney disease, stage 2 (mild); M48.00 Spinal stenosis, site unspecified
CPT/HCPCS: 0241U-QW; 36415; 70450-TC; 71045-TC-FY; 80053; 81003; 83735; 83880; 84100; 84484; 85025; 85027; 85610; 86850; 86900; 86901; 87086; 93005; 93010; 97116-GP; 97161-GP; 99285-25; G0378; J0248; J1644

== ENCOUNTER 2023-04-02 20:22 | Emergency (ER) | payer OTHER ==
[2023-04-02 20:48] VITALS: BMI 17.0
[2023-04-02] MEDS ORDERED: FOLIC ACID INJECTION - 1 MG, THIAMINE HCL 100 MG, MULTIVIT INJECTION ADULT 10 ML in SOD... IVPB ONE (21:03)
[2023-04-02] MEDS ORDERED: MAGNESIUM SULF 50% (8.12 MEQ/2 ML-1 GM VIAL) IVPB ONE (21:04)
[2023-04-02 22:20] LABS: BASO % 0.7 % (0-2.0); EOS % 1.2 % (0-4.5); HEMATOCRIT 31.7 % (35.4-49); HEMOGLOBIN 10.6 GM/dL (11.7-16.9); LYMPH % 13.2 % (8-40); MCH 28.9 pg (25.7-33.7); MCHC 33.3 g/dl (32.0-35.9); MEAN CELL VOLUME 86.7 fl (80-96); MEAN PLT VOLUME 6.6 fl (7.5-11.1); MONO % 8.8 % (3.8-10.2); NEUT % 76.1 % (42.8-82.8); PLATELET COUNT 264 10^3/uL (134-434); RBC 3.66 M/mm3 (4.00-5.60); RDW 14.8 % (11.9-15.9); WHITE BLOOD COUNT 9.4 K/mm3 (4.0-10.0)
[2023-04-02 22:42] LABS: POTASSIUM 4.1 mmol/L (3.5-5.1)
[2023-04-02 22:44] LABS: CALCIUM 7.6 mg/dL (8.5-10.1)
[2023-04-02 22:45] LABS: ALBUMIN 2.7 g/dl (3.4-5.0); BLOOD UREA NITROGEN 20.2 mg/dL (7-18)
[2023-04-02 22:48] LABS: CREATININE 1.1 mg/dL (0.55-1.3)
[2023-04-02 22:49] LABS: BILIRUBIN,TOTAL 0.4 mg/dL (0.2-1); TOT PROT 5.9 g/dl (6.4-8.2)
[2023-04-02 23:46] LABS: EPI CELLS 1 /uL (0-25.1); HYALINE CASTS 3 /uL (0-3.1); URINE APPEARANCE CLOUDY; URINE BACTERIA 47 /uL (0-1359); URINE BILIRUBIN NEGATIVE (NEGATIVE); URINE COLOR DK YELLOW; URINE GLUCOSE (UA) 2+ (NEGATIVE); URINE KETONE TRACE (NEGATIVE); URINE LEUK ESTERASE 2+ (NEGATIVE); URINE NITRITE NEGATIVE (NEGATIVE); URINE PROTEIN 3+ (NEGATIVE); URINE RBC 125 /uL (0-23.9); URINE WBC 1764 /uL (0-25.8)
[2023-04-03] MEDS ORDERED: SULFAMETHOXAZOLE/TRIMETHOPRIM 800MG/160MG D.S. TABLET PO ONE (00:03)
[2023-04-03 00:09] LABS: YEAST OCCASIONAL (NEGATIVE)
[2023-04-03] MEDS ORDERED: SULFAMETHOXAZOLE/TRIMETHOPRIM 800MG/160MG D.S. TABLET ONE (01:02)
[2023-04-03 07:30] VITALS: RESP 16
[2023-04-03 08:34] VITALS: BP 135/57; PULSE 86; TEMP 98
== END 2023-04-03 08:34 | disposition home or self-care (01) ==
LOC: JER 20:22
PROC: 3E033GC Introduction of Other Therapeutic Substance into Peripheral Vein, Percutaneous Approach (ICD-10-PCS; principal; 2023-04-02)
PROC: 3E033GC Introduction of Other Therapeutic Substance into Peripheral Vein, Percutaneous Approach (ICD-10-PCS; 2023-04-02)
PROC: 3E033GC Introduction of Other Therapeutic Substance into Peripheral Vein, Percutaneous Approach (ICD-10-PCS; 2023-04-02)
PROC: 3E033GC Introduction of Other Therapeutic Substance into Peripheral Vein, Percutaneous Approach (ICD-10-PCS; 2023-04-02)
PROC: 3E033GC Introduction of Other Therapeutic Substance into Peripheral Vein, Percutaneous Approach (ICD-10-PCS; 2023-04-02)
PROC: 3E033GC Introduction of Other Therapeutic Substance into Peripheral Vein, Percutaneous Approach (ICD-10-PCS; 2023-04-02)
PROC: 3E033GC Introduction of Other Therapeutic Substance into Peripheral Vein, Percutaneous Approach (ICD-10-PCS; 2023-04-02)
PROC: 3E033GC Introduction of Other Therapeutic Substance into Peripheral Vein, Percutaneous Approach (ICD-10-PCS; 2023-04-02)
DX: R53.1 Weakness (principal); R63.0 Anorexia; R06.02 Shortness of breath; R05.9 Cough, unspecified; R19.7 Diarrhea, unspecified
CPT/HCPCS: 36415; 71045-TC-FY; 80053; 81003; 85025; 87086; 93005; 93010; 99285-25

== ENCOUNTER 2023-05-15 16:45 | Inpatient (IN) | payer OTHER ==
[2023-05-15 18:13] LABS: BASO % 0.2 % (0-2.0); EOS % 0.3 % (0-4.5); HEMATOCRIT 30.5 % (35.4-49); HEMOGLOBIN 10.2 GM/dL (11.7-16.9); MCH 28.7 pg (25.7-33.7); MCHC 33.3 g/dl (32.0-35.9); MEAN PLT VOLUME 6.6 fl (7.5-11.1); MONO % 7.4 % (3.8-10.2); NEUT % 82.1 % (42.8-82.8); PLATELET COUNT 359 10^3/uL (134-434); RBC 3.54 M/mm3 (4.00-5.60); RDW 15.1 % (11.9-15.9); WHITE BLOOD COUNT 12.2 K/mm3 (4.0-10.0)
[2023-05-15 18:45] LABS: POTASSIUM 4.1 mmol/L (3.5-5.1)
[2023-05-15 18:47] LABS: CALCIUM 8.3 mg/dL (8.5-10.1)
[2023-05-15 18:48] LABS: ALBUMIN 2.7 g/dl (3.4-5.0); BLOOD UREA NITROGEN 32.3 mg/dL (7-18)
[2023-05-15 18:51] LABS: CREATININE 1.5 mg/dL (0.55-1.3)
[2023-05-15 18:52] LABS: BILIRUBIN,TOTAL 0.3 mg/dL (0.2-1); TOT PROT 6.3 g/dl (6.4-8.2)
[2023-05-15] MEDS ORDERED: MEROPENEM 1 GM VIAL (RESTRICTED TO ID) IVPB ONE (20:09)
[2023-05-15] MEDS: MEROPENEM 1 GM in DEXTROSE 5%-WATER 100 ML IVPB ONE (21:05)
[2023-05-15] MEDS ORDERED: HEPARIN NA (PORCINE) 5,000 UNITS/ML 1ML VIAL ONE (23:06)
[2023-05-15] MEDS: HEPARIN NA (PORCINE) 5,000 UNITS/ML 1ML VIAL SQ SCH (23:07)
[2023-05-15] MEDS ORDERED: ALBUTEROL SO4 HFA INHALER IH PRN (23:50)
[2023-05-15] MEDS: ENOXAPARIN NA (PORCINE) 80 MG/0.8 ML DISP.SYRIN SQ SCH (23:56)
[2023-05-15] MEDS ORDERED: ASPIRIN 81 MG CHEWABLE TABLETS ONE (23:57)
[2023-05-16] MEDS: ASPIRIN 325 MG TABLET PO ONE
[2023-05-16 08:31] LABS: BASO % 0.4 % (0-2.0); EOS % 0.4 % (0-4.5); HEMATOCRIT 26.6 % (35.4-49); HEMOGLOBIN 8.9 GM/dL (11.7-16.9); LYMPH % 9.4 % (8-40); MCH 28.7 pg (25.7-33.7); MCHC 33.4 g/dl (32.0-35.9); MEAN CELL VOLUME 85.8 fl (80-96); MEAN PLT VOLUME 6.7 fl (7.5-11.1); NEUT % 82.8 % (42.8-82.8); PLATELET COUNT 284 10^3/uL (134-434); RDW 15.2 % (11.9-15.9); WHITE BLOOD COUNT 9.2 K/mm3 (4.0-10.0)
[2023-05-16 08:48] LABS: POTASSIUM 3.8 mmol/L (3.5-5.1)
[2023-05-16 08:51] LABS: ALBUMIN 2.4 g/dl (3.4-5.0); BLOOD UREA NITROGEN 26.5 mg/dL (7-18); CALCIUM 8.1 mg/dL (8.5-10.1)
[2023-05-16 08:54] LABS: CREATININE 1.2 mg/dL (0.55-1.3); PHOSPHOROUS 2.6 mg/dL (2.5-4.9)
[2023-05-16 08:56] LABS: BILIRUBIN,TOTAL 0.4 mg/dL (0.2-1); TOT PROT 5.5 g/dl (6.4-8.2)
[2023-05-16] MEDS: TAMSULOSIN HCL 0.4 MG CAP PO SCH (09:51)
[2023-05-16] MEDS: FINASTERIDE 5 MG TABLET (FP) PO SCH (09:51)
[2023-05-16] MEDS: metoPROLOL SUCCINATE 25 MG TAB.SR.24H (FP) PO SCH (09:51)
[2023-05-16] MEDS: ASPIRIN 81 MG CHEWABLE TABLETS PO SCH (09:52)
[2023-05-16] MEDS ORDERED: ASPIRIN 81 MG CHEWABLE TABLETS PO SCH ×2 (10:00)
[2023-05-16 12:45] LABS: EPI CELLS 1 /uL (0-25.1); HYALINE CASTS 1 /uL (0-3.1); PH,URINE 5.5 (5.0-8.0); URINE APPEARANCE CLEAR; URINE BILIRUBIN NEGATIVE (NEGATIVE); URINE COLOR YELLOW; URINE GLUCOSE (UA) NEGATIVE (NEGATIVE); URINE KETONE NEGATIVE (NEGATIVE); URINE LEUK ESTERASE TRACE (NEGATIVE); URINE NITRITE POSITIVE (NEGATIVE); URINE PROTEIN 1+ (NEGATIVE); URINE RBC 12 /uL (0-23.9); URINE UROBILINOGEN 0.2 mg/dL (0.2-1.0); URINE WBC 219 /uL (0-25.8)
[2023-05-16 13:34] LABS: URINE BACTERIA 682.8 /uL (0-1359)
[2023-05-16 15:08] VITALS: BMI 16.9
[2023-05-16] MEDS: AMINO ACIDS/PROTEIN HYDROLYS 30 ML LIQUID.PKT PO SCH (17:26)
[2023-05-16] MEDS: ATORVASTATIN CA 40 MG TABLET (FP) PO SCH (21:48)
[2023-05-16] MEDS: CEFTRIAXONE 1 GM in DEXTROSE 5%-WATER - 50 ML IVPB ONE (21:48)
[2023-05-17 08:22] LABS: POTASSIUM 3.7 mmol/L (3.5-5.1)
[2023-05-17 08:25] LABS: BASO % 0.6 % (0-2.0); EOS % 0.2 % (0-4.5); HEMATOCRIT 25.5 % (35.4-49); HEMOGLOBIN 8.9 GM/dL (11.7-16.9); LYMPH % 17.3 % (8-40); MCH 29.4 pg (25.7-33.7); MCHC 34.9 g/dl (32.0-35.9); MEAN CELL VOLUME 84.3 fl (80-96); MEAN PLT VOLUME 6.7 fl (7.5-11.1); MONO % 12.3 % (3.8-10.2); NEUT % 69.6 % (42.8-82.8); PLATELET COUNT 253 10^3/uL (134-434); RBC 3.03 M/mm3 (4.00-5.60); RDW 14.7 % (11.9-15.9)
[2023-05-17 08:30] LABS: CALCIUM 8.1 mg/dL (8.5-10.1)
[2023-05-17 08:31] LABS: ALBUMIN 2.3 g/dl (3.4-5.0); BLOOD UREA NITROGEN 22.3 mg/dL (7-18); MAGNESIUM 1.9 mg/dL (1.8-2.4)
[2023-05-17 08:34] LABS: CREATININE 1.2 mg/dL (0.55-1.3); PHOSPHOROUS 2.4 mg/dL (2.5-4.9)
[2023-05-17 08:35] LABS: BILIRUBIN,TOTAL 0.3 mg/dL (0.2-1); TOT PROT 5.3 g/dl (6.4-8.2)
[2023-05-17] MEDS ORDERED: REGADENOSON 0.4 MG/5 ML PRE-FILLED SYRINGE IVPUSH ONE (10:02)
[2023-05-17] MEDS: REGADENOSON 0.4 MG/5 ML PRE-FILLED SYRINGE IVPUSH ONE (11:15)
[2023-05-17] MEDS: ASCORBIC ACID 250 MG TABLET (FP) PO SCH (12:32)
[2023-05-17] MEDS: MULTIVITAMINS (DAILY MVI) TABLET (FP) PO SCH (12:32)
[2023-05-17] MEDS: CEFTRIAXONE 1 GM in DEXTROSE 5%-WATER - 50 ML IVPB SCH (12:32)
[2023-05-17] MEDS: NAPH,MB-DB/K PH,MBDB POWDER PACKET PO ONE (14:49)
[2023-05-17] MEDS: ACETAMINOPHEN 325 MG TABLET (FP) PO PRN (15:55)
[2023-05-17] MEDS: ENOXAPARIN NA (PORCINE) 40 MG/0.4 ML DISP.SYRIN SQ ONE (18:25)
[2023-05-17 19:39] LABS: EPI CELLS 12 /uL (0-25.1); HYALINE CASTS 0 /uL (0-3.1); URINE APPEARANCE CLEAR; URINE BACTERIA 8 /uL (0-1359); URINE BILIRUBIN NEGATIVE (NEGATIVE); URINE COLOR YELLOW; URINE GLUCOSE (UA) NEGATIVE (NEGATIVE); URINE KETONE NEGATIVE (NEGATIVE); URINE LEUK ESTERASE 1+ (NEGATIVE); URINE NITRITE NEGATIVE (NEGATIVE); URINE PROTEIN 1+ (NEGATIVE); URINE RBC 24 /uL (0-23.9); URINE UROBILINOGEN 0.2 mg/dL (0.2-1.0); URINE WBC 117 /uL (0-25.8)
[2023-05-17] MEDS: MELATONIN 5 MG TABLETS PO PRN (23:22)
[2023-05-18 06:45] LABS: HEMATOCRIT 25.1 % (35.4-49); HEMOGLOBIN 8.6 GM/dL (11.7-16.9); MCHC 34.3 g/dl (32.0-35.9); MEAN CELL VOLUME 84.6 fl (80-96); MEAN PLT VOLUME 6.5 fl (7.5-11.1); PLATELET COUNT 230 10^3/uL (134-434); RBC 2.97 M/mm3 (4.00-5.60); RDW 14.6 % (11.9-15.9); WHITE BLOOD COUNT 3.6 K/mm3 (4.0-10.0)
[2023-05-18 07:05] LABS: POTASSIUM 3.9 mmol/L (3.5-5.1)
[2023-05-18 07:22] LABS: ALBUMIN 2.2 g/dl (3.4-5.0); BLOOD UREA NITROGEN 32.9 mg/dL (7-18)
[2023-05-18 07:25] LABS: CREATININE 1.3 mg/dL (0.55-1.3)
[2023-05-18 07:27] LABS: TOT PROT 5.2 g/dl (6.4-8.2)
[2023-05-18 07:30] LABS: BILIRUBIN,TOTAL 0.3 mg/dL (0.2-1)
[2023-05-18] MEDS: METOPROLOL TARTRATE 5 MG/5 ML VIAL IVPUSH ONE (18:23)
[2023-05-18] MEDS: METOPROLOL TARTRATE 25 MG TABLET (FP) PO SCH (21:09)
[2023-05-19 07:10] LABS: HEMATOCRIT 23.9 % (35.4-49); HEMOGLOBIN 8.2 GM/dL (11.7-16.9); MCH 28.7 pg (25.7-33.7); MCHC 34.1 g/dl (32.0-35.9); MEAN CELL VOLUME 84.2 fl (80-96); MEAN PLT VOLUME 6.8 fl (7.5-11.1); PLATELET COUNT 273 10^3/uL (134-434); RBC 2.84 M/mm3 (4.00-5.60); RDW 14.7 % (11.9-15.9)
[2023-05-19 07:30] LABS: POTASSIUM 3.9 mmol/L (3.5-5.1)
[2023-05-19 07:35] LABS: CALCIUM 8.3 mg/dL (8.5-10.1)
[2023-05-19 07:37] LABS: ALBUMIN 2.1 g/dl (3.4-5.0); BLOOD UREA NITROGEN 31.8 mg/dL (7-18)
[2023-05-19 07:41] LABS: BILIRUBIN,TOTAL 0.2 mg/dL (0.2-1)
[2023-05-19] MEDS: metoPROLOL SUCCINATE 25 MG TAB.SR.24H (FP) PO SCH (10:11)
[2023-05-19 10:36] LABS: RETICULOCYTES 0.98 % (0.5-1.5)
[2023-05-19] MEDS: IRON SUCROSE INJECTION 200 MG in SODIUM CHLORIDE 100 ML IVPB ONE (14:22)
[2023-05-19 14:55] VITALS: BP 119/63; PULSE 105; RESP 20; TEMP 97.8
== END 2023-05-19 19:21 | disposition home or self-care (01) | DRG 948 ==
LOC: JER 16:45 → JERBED 18:45 → J4S 05-16 02:32
PROVIDERS: ADMIT Internal Medicine; ATTEND Internal Medicine
DX: R79.89 Other specified abnormal findings of blood chemistry (principal); I47.19 Other supraventricular tachycardia; I50.42 Chronic combined systolic (congestive) and diastolic (congestive) heart failure; E78.5 Hyperlipidemia, unspecified; J44.9 Chronic obstructive pulmonary disease, unspecified; N40.0 Benign prostatic hyperplasia without lower urinary tract symptoms; N40.1 Benign prostatic hyperplasia with lower urinary tract symptoms; R33.8 Other retention of urine; E11.22 Type 2 diabetes mellitus with diabetic chronic kidney disease; N18.9 Chronic kidney disease, unspecified; D64.9 Anemia, unspecified; E11.42 Type 2 diabetes mellitus with diabetic polyneuropathy
CPT/HCPCS: 0241U-QW; 36415; 71045-TC-FY; 78452-TC; 80053; 81003; 82728; 83540; 83550; 83735; 84100; 84466; 84484; 85025; 85027; 85045; 87077; 87086; 87186; 93005; 93010; 93017; 97116-GP; 97161-GP; 99285-25; A9502; J1644; J1756; J2785

== ENCOUNTER 2023-06-01 00:21 | Inpatient (IN) | payer OTHER ==
[2023-06-01] MEDS ORDERED: ACETAMINOPHEN INJECTION 100 ML IVPB ONE (02:44)
[2023-06-01] MEDS: ACETAMINOPHEN 1000 MG/100 ML BAG IVPB ONE (02:49)
[2023-06-01 02:53] LABS: BASO % 0.4 % (0-2.0); EOS % 0.7 % (0-4.5); HEMATOCRIT 31.1 % (35.4-49); HEMOGLOBIN 10.6 GM/dL (11.7-16.9); LYMPH % 13.1 % (8-40); MCH 28.7 pg (25.7-33.7); MCHC 34.1 g/dl (32.0-35.9); MEAN CELL VOLUME 84.3 fl (80-96); MEAN PLT VOLUME 6.4 fl (7.5-11.1); MONO % 6.4 % (3.8-10.2); NEUT % 79.4 % (42.8-82.8); PLATELET COUNT 353 10^3/uL (134-434); RBC 3.69 M/mm3 (4.00-5.60); RDW 15.7 % (11.9-15.9)
[2023-06-01 02:55] LABS: EPI CELLS 1 /uL (0-25.1); HYALINE CASTS 1 /uL (0-3.1); URINE APPEARANCE CLEAR; URINE BACTERIA 3555 /uL (0-1359); URINE BILIRUBIN NEGATIVE (NEGATIVE); URINE COLOR YELLOW; URINE GLUCOSE (UA) NEGATIVE (NEGATIVE); URINE KETONE NEGATIVE (NEGATIVE); URINE LEUK ESTERASE 3+ (NEGATIVE); URINE NITRITE POSITIVE (NEGATIVE); URINE PROTEIN TRACE (NEGATIVE); URINE RBC 6 /uL (0-23.9); URINE UROBILINOGEN 0.2 mg/dL (0.2-1.0); URINE WBC 367 /uL (0-25.8)
[2023-06-01 03:11] LABS: POTASSIUM 4.2 mmol/L (3.5-5.1)
[2023-06-01 03:13] LABS: CALCIUM 8.7 mg/dL (8.5-10.1)
[2023-06-01 03:14] LABS: BLOOD UREA NITROGEN 27.6 mg/dL (7-18)
[2023-06-01 03:17] LABS: CREATININE 1.3 mg/dL (0.55-1.3)
[2023-06-01 03:19] LABS: BILIRUBIN,TOTAL 0.4 mg/dL (0.2-1)
[2023-06-01] MEDS: PIPERACILLIN/TAZOB 3.375 GM 3.375 GM in DEXTROSE 5%-WATER - 50 ML IVPB ONE (03:40)
[2023-06-01] MEDS ORDERED: VANCOMYCIN 1 GRAM (PRE-DOCKED) 1,000 MG/250 ML BAG IVPB ONE (03:43)
[2023-06-01] MEDS ORDERED: PIPERACILLIN/TAZOB 3.375 GM 3.375 GM/50 ML BAG IVPB ONE ×2 (03:43→08:17)
[2023-06-01] MEDS: VANCOMYCIN 1,000 MG in DEXTROSE 5%-WATER - 250 ML IVPB ONE (03:53)
[2023-06-01] MEDS ORDERED: DOCUSATE SODIUM 100 MG CAPSULE (FP) PO PRN (05:03)
[2023-06-01] MEDS ORDERED: ACETAMINOPHEN 325 MG TABLET (FP) PO PRN (05:03)
[2023-06-01] MEDS ORDERED: metoPROLOL SUCCINATE 25 MG TAB.SR.24H (FP) PO ONE (08:16)
[2023-06-01] MEDS ORDERED: ASPIRIN 81 MG CHEWABLE TABLETS ONE (08:17)
[2023-06-01] MEDS ORDERED: TAMSULOSIN HCL 0.4 MG CAP ONE (08:17)
[2023-06-01] MEDS: PIPERACILLIN/TAZOB 3.375 GM 3.375 GM in DEXTROSE 5%-WATER - 50 ML IVPB SCH ×2 (08:35→18:36)
[2023-06-01] MEDS: TAMSULOSIN HCL 0.4 MG CAP PO SCH (08:35)
[2023-06-01] MEDS: metoPROLOL SUCCINATE 25 MG TAB.SR.24H (FP) PO SCH (09:33)
[2023-06-01] MEDS: ASPIRIN 81 MG CHEWABLE TABLETS PO SCH (09:33)
[2023-06-01] MEDS: FINASTERIDE 5 MG TABLET (FP) PO SCH (09:33)
[2023-06-01] MEDS ORDERED: TAMSULOSIN HCL 0.4 MG CAP PO SCH (10:00)
[2023-06-01] MEDS: VANCOMYCIN/WATER FOR INJ (PEG) 1,000 MG/200 ML BAG IVPB SCH (18:37)
[2023-06-01] MEDS: ATORVASTATIN CA 40 MG TABLET (FP) PO SCH (21:37)
[2023-06-02] MEDS: MELATONIN 5 MG TABLETS PO PRN (00:16)
[2023-06-02 07:56] LABS: BASO % 0.8 % (0-2.0); EOS % 1.6 % (0-4.5); HEMATOCRIT 23.4 % (35.4-49); LYMPH % 21.1 % (8-40); MCH 28.4 pg (25.7-33.7); MEAN CELL VOLUME 83.6 fl (80-96); MEAN PLT VOLUME 6.5 fl (7.5-11.1); MONO % 12.7 % (3.8-10.2); NEUT % 63.8 % (42.8-82.8); PLATELET COUNT 241 10^3/uL (134-434); RDW 15.6 % (11.9-15.9); WHITE BLOOD COUNT 5.3 K/mm3 (4.0-10.0)
[2023-06-02 08:04] LABS: POTASSIUM 3.7 mmol/L (3.5-5.1)
[2023-06-02 08:05] LABS: CALCIUM 7.8 mg/dL (8.5-10.1)
[2023-06-02 08:06] LABS: BLOOD UREA NITROGEN 22.6 mg/dL (7-18)
[2023-06-02 08:09] LABS: CREATININE 1.3 mg/dL (0.55-1.3)
[2023-06-02] MEDS: PIPERACILLIN/TAZOB 3.375 GM 3.375 GM in DEXTROSE 5%-WATER - 50 ML IVPB SCH (12:35)
[2023-06-02 15:30] VITALS: BMI 17.9
[2023-06-02] MEDS: VANCOMYCIN 1,000 MG in DEXTROSE 5%-WATER - 250 ML IVPB SCH ×2 (15:31→15:32)
[2023-06-02] MEDS: SODIUM CHLORIDE 0.9% 500 ML INFUS.BAG IV ONE (16:33)
[2023-06-02 17:22] LABS: HEMATOCRIT 24.3 % (35.4-49); MCH 27.7 pg (25.7-33.7); MCHC 32.8 g/dl (32.0-35.9); MEAN CELL VOLUME 84.3 fl (80-96); MEAN PLT VOLUME 6.3 fl (7.5-11.1); PLATELET COUNT 241 10^3/uL (134-434); RBC 2.88 M/mm3 (4.00-5.60); RDW 15.8 % (11.9-15.9); WHITE BLOOD COUNT 4.8 K/mm3 (4.0-10.0)
[2023-06-03] MEDS: metoPROLOL SUCCINATE 25 MG TAB.SR.24H (FP) PO SCH (09:39)
[2023-06-03] MEDS: AMINO ACIDS/PROTEIN HYDROLYS 30 ML LIQUID.PKT PO SCH (16:47)
[2023-06-03] MEDS: MEROPENEM 1 GM in DEXTROSE 5%-WATER 100 ML IVPB SCH (20:01)
[2023-06-03] MEDS: ASCORBIC ACID 500 MG TABLET (FP) PO SCH (21:34)
[2023-06-04] MEDS: MEROPENEM 1 GM in DEXTROSE 5%-WATER 100 ML IVPB SCH (03:07)
[2023-06-04] MEDS: MULTIVITAMINS (DAILY MVI) TABLET (FP) PO SCH (09:27)
[2023-06-06 08:56] VITALS: BP 115/50; PULSE 87; RESP 18; TEMP 98
== END 2023-06-06 11:28 | DRG 699 ==
LOC: JER 00:21 → JERBED 03:35 → J4S 13:47 → JERBED 16:13 → OBSVTOIN 06-02 16:13
PROVIDERS: ADMIT Internal Medicine; ATTEND Internal Medicine
PROC: 05HB33Z Insertion of Infusion Device into Right Basilic Vein, Percutaneous Approach (ICD-10-PCS; principal; 2023-06-05)
DX: T83.518A Infection and inflammatory reaction due to other urinary catheter, initial encounter (principal); I13.0 Hypertensive heart and chronic kidney disease with heart failure and stage 1 through stage 4 chronic kidney disease, or unspecified chronic kidney disease; I50.40 Unspecified combined systolic (congestive) and diastolic (congestive) heart failure; N39.0 Urinary tract infection, site not specified; I50.42 Chronic combined systolic (congestive) and diastolic (congestive) heart failure; Z16.12 Extended spectrum beta lactamase (ESBL) resistance; E11.9 Type 2 diabetes mellitus without complications; D64.9 Anemia, unspecified; L89.152 Pressure ulcer of sacral region, stage 2; N40.1 Benign prostatic hyperplasia with lower urinary tract symptoms; Y83.9 Surgical procedure, unspecified as the cause of abnormal reaction of the patient, or of later complication, without mention of misadventure at the time of the procedure; N18.9 Chronic kidney disease, unspecified; R33.9 Retention of urine, unspecified; J44.9 Chronic obstructive pulmonary disease, unspecified; E11.22 Type 2 diabetes mellitus with diabetic chronic kidney disease; D63.8 Anemia in other chronic diseases classified elsewhere; B96.5 Pseudomonas (aeruginosa) (mallei) (pseudomallei) as the cause of diseases classified elsewhere; E11.42 Type 2 diabetes mellitus with diabetic polyneuropathy; B96.20 Unspecified Escherichia coli [E. coli] as the cause of diseases classified elsewhere
CPT/HCPCS: 0241U-QW; 36415; 71045-TC-FY; 80048; 80053; 81003; 83605; 84484; 85025; 85027; 86850; 86900; 86901; 87040; 87086; 87186; 93005; 93010; 97116-GP; 97161-GP; 99285-25; E0186; G0378; J0131

== ENCOUNTER 2023-08-17 03:22 | Inpatient (IN) | payer OTHER ==
[2023-08-17 04:09] LABS: BASO % 0.3 % (0-2.0); EOS % 0.2 % (0-4.5); HEMATOCRIT 22.5 % (35.4-49); HEMOGLOBIN 7.5 GM/dL (11.7-16.9); LYMPH % 4.2 % (8-40); MCH 28.1 pg (25.7-33.7); MCHC 33.3 g/dl (32.0-35.9); MEAN CELL VOLUME 84.4 fl (80-96); MEAN PLT VOLUME 6.2 fl (7.5-11.1); MONO % 5.3 % (3.8-10.2); PLATELET COUNT 262 10^3/uL (134-434); RBC 2.67 M/mm3 (4.00-5.60); RDW 16.7 % (11.9-15.9); WHITE BLOOD COUNT 14.8 K/mm3 (4.0-10.0)
[2023-08-17 04:19] LABS: INR 1.03 (0.83-1.09); PROTHROMBIN TIME (PATIENT) 11.6 SEC (9.7-13.0)
[2023-08-17 04:22] LABS: ACTIVATED PTT 31.5 SECONDS (25.2-36.5)
[2023-08-17 04:30] LABS: EPI CELLS 4 /uL (0-25.1); HYALINE CASTS 1 /uL (0-3.1); PH,URINE 5.5 (5.0-8.0); URINE APPEARANCE CLOUDY; URINE BACTERIA 229 /uL (0-1359); URINE BILIRUBIN NEGATIVE (NEGATIVE); URINE COLOR YELLOW; URINE GLUCOSE (UA) NEGATIVE (NEGATIVE); URINE KETONE NEGATIVE (NEGATIVE); URINE LEUK ESTERASE 2+ (NEGATIVE); URINE NITRITE NEGATIVE (NEGATIVE); URINE PROTEIN 2+ (NEGATIVE); URINE RBC 2406 /uL (0-23.9); URINE UROBILINOGEN 0.2 mg/dL (0.2-1.0); URINE WBC 1251 /uL (0-25.8)
[2023-08-17 04:30] LABS: POTASSIUM 4.3 mmol/L (3.5-5.1)
[2023-08-17 04:33] LABS: CALCIUM 7.9 mg/dL (8.5-10.1)
[2023-08-17 04:34] LABS: ALBUMIN 2.6 g/dl (3.4-5.0); BLOOD UREA NITROGEN 45.9 mg/dL (7-18); MAGNESIUM 1.7 mg/dL (1.8-2.4)
[2023-08-17 04:37] LABS: CREATININE 1.6 mg/dL (0.55-1.3)
[2023-08-17 04:38] LABS: BILIRUBIN,TOTAL 0.5 mg/dL (0.2-1); TOT PROT 5.4 g/dl (6.4-8.2)
[2023-08-17 04:42] LABS: N-TERMINAL BNP 1780.8 pg/ml (5-450)
[2023-08-17 08:18] LABS: BASO % 0.1 % (0-2.0); EOS % 0.1 % (0-4.5); HEMATOCRIT 21.4 % (35.4-49); HEMOGLOBIN 7.1 GM/dL (11.7-16.9); LYMPH % 7.3 % (8-40); MCHC 33.3 g/dl (32.0-35.9); MONO % 5.1 % (3.8-10.2); NEUT % 87.4 % (42.8-82.8); PLATELET COUNT 253 10^3/uL (134-434); RBC 2.55 M/mm3 (4.00-5.60); RDW 16.3 % (11.9-15.9); WHITE BLOOD COUNT 14.5 K/mm3 (4.0-10.0)
[2023-08-17] MEDS ORDERED: MAGNESIUM 2GM/50ML STERILE WATER IVPB IVPB ONE (09:05)
[2023-08-17] MEDS ORDERED: TAMSULOSIN HCL 0.4 MG CAP PO SCH (10:00)
[2023-08-17] MEDS ORDERED: metoPROLOL SUCCINATE 25 MG TAB.SR.24H (FP) PO SCH (10:00)
[2023-08-17] MEDS: METOPROLOL TARTRATE 25 MG TABLET (FP) PO SCH (10:12)
[2023-08-17] MEDS: ASPIRIN 81 MG CHEWABLE TABLETS PO SCH (10:12)
[2023-08-17] MEDS: MEROPENEM 1 GM in DEXTROSE 5%-WATER 100 ML IVPB SCH ×2 (11:27→18:38)
[2023-08-17] MEDS: FINASTERIDE 5 MG TABLET (FP) PO SCH (11:33)
[2023-08-17] MEDS: MAGNESIUM 2GM/50ML STERILE WATER IVPB IVPB ONE (13:13)
[2023-08-17] MEDS: AMINO ACIDS/PROTEIN HYDROLYS 30 ML LIQUID.PKT PO SCH (17:59)
[2023-08-17] MEDS: SODIUM CHLORIDE 250 ML IV STA (20:17)
[2023-08-17] MEDS: ATORVASTATIN CA 40 MG TABLET (FP) PO SCH (21:57)
[2023-08-17] MEDS: MELATONIN 5 MG TABLETS PO SCH (22:06)
[2023-08-18 07:05] LABS: HEMATOCRIT 21.7 % (35.4-49); HEMOGLOBIN 7.5 GM/dL (11.7-16.9); MCH 29.4 pg (25.7-33.7); MCHC 34.5 g/dl (32.0-35.9); MEAN CELL VOLUME 85.2 fl (80-96); MEAN PLT VOLUME 6.3 fl (7.5-11.1); PLATELET COUNT 227 10^3/uL (134-434); RBC 2.55 M/mm3 (4.00-5.60); RDW 16.2 % (11.9-15.9)
[2023-08-18 07:26] LABS: POTASSIUM 4.2 mmol/L (3.5-5.1)
[2023-08-18 07:32] LABS: ALBUMIN 2.2 g/dl (3.4-5.0); BLOOD UREA NITROGEN 34.2 mg/dL (7-18); CALCIUM 7.9 mg/dL (8.5-10.1); MAGNESIUM 2.2 mg/dL (1.8-2.4)
[2023-08-18 07:34] LABS: CREATININE 1.2 mg/dL (0.55-1.3)
[2023-08-18 07:36] LABS: BILIRUBIN,TOTAL 0.5 mg/dL (0.2-1)
[2023-08-18] MEDS: FUROSEMIDE 40 MG/4 ML INJECTABLE VIAL IVPUSH ONE (13:26)
[2023-08-18 18:04] LABS: HEMATOCRIT 28.6 % (35.4-49); HEMOGLOBIN 9.7 GM/dL (11.7-16.9); MCH 28.1 pg (25.7-33.7); MCHC 33.7 g/dl (32.0-35.9); MEAN CELL VOLUME 83.4 fl (80-96); MEAN PLT VOLUME 6.4 fl (7.5-11.1); PLATELET COUNT 254 10^3/uL (134-434); RBC 3.44 M/mm3 (4.00-5.60); RDW 16.4 % (11.9-15.9); WHITE BLOOD COUNT 13.6 K/mm3 (4.0-10.0)
[2023-08-18] MEDS: VANCOMYCIN/WATER FOR INJ (PEG) 1,000 MG/200 ML BAG IVPB ONE (20:03)
[2023-08-19 07:21] LABS: BASO % 0.5 % (0-2.0); EOS % 4.5 % (0-4.5); HEMATOCRIT 26.5 % (35.4-49); HEMOGLOBIN 9.3 GM/dL (11.7-16.9); LYMPH % 11.8 % (8-40); MCH 29.1 pg (25.7-33.7); MCHC 34.9 g/dl (32.0-35.9); MEAN CELL VOLUME 83.5 fl (80-96); MEAN PLT VOLUME 6.4 fl (7.5-11.1); MONO % 6.4 % (3.8-10.2); NEUT % 76.8 % (42.8-82.8); PLATELET COUNT 245 10^3/uL (134-434); RBC 3.18 M/mm3 (4.00-5.60); RDW 16.2 % (11.9-15.9); WHITE BLOOD COUNT 11.4 K/mm3 (4.0-10.0)
[2023-08-19 07:39] LABS: POTASSIUM 4.2 mmol/L (3.5-5.1)
[2023-08-19 07:45] LABS: CALCIUM 8.4 mg/dL (8.5-10.1)
[2023-08-19 07:46] LABS: ALBUMIN 2.3 g/dl (3.4-5.0); BLOOD UREA NITROGEN 34.9 mg/dL (7-18)
[2023-08-19 07:48] LABS: PHOSPHOROUS 2.8 mg/dL (2.5-4.9)
[2023-08-19 07:49] LABS: CREATININE 1.2 mg/dL (0.55-1.3)
[2023-08-19 07:50] LABS: TOT PROT 5.2 g/dl (6.4-8.2)
[2023-08-19 07:52] LABS: BILIRUBIN,TOTAL 0.9 mg/dL (0.2-1)
[2023-08-19] MEDS: MEROPENEM 1 GM in DEXTROSE 5%-WATER 100 ML IVPB ONE (09:43)
[2023-08-19] MEDS: metoPROLOL SUCCINATE 25 MG TAB.SR.24H (FP) PO SCH (09:44)
[2023-08-19] MEDS ORDERED: metoPROLOL SUCCINATE 25 MG TAB.SR.24H (FP) PO SCH (10:00)
[2023-08-19] MEDS: AMOX TR/POT CLAV 875MG/125MG TABLETS (FP) PO SCH (20:10)
[2023-08-19] MEDS ORDERED: MEROPENEM 1 GM in DEXTROSE 5%-WATER 100 ML IVPB SCH (22:00)
[2023-08-20] MEDS: KETOROLAC TROMETHAMINE 15 MG/ML VIAL IVPUSH ONE (05:35)
[2023-08-20 07:06] LABS: HEMATOCRIT 28.6 % (35.4-49); HEMOGLOBIN 9.8 GM/dL (11.7-16.9); MCH 28.5 pg (25.7-33.7); MCHC 34.1 g/dl (32.0-35.9); MEAN CELL VOLUME 83.6 fl (80-96); MEAN PLT VOLUME 6.4 fl (7.5-11.1); PLATELET COUNT 296 10^3/uL (134-434); RBC 3.42 M/mm3 (4.00-5.60); RDW 16.7 % (11.9-15.9); WHITE BLOOD COUNT 11.3 K/mm3 (4.0-10.0)
[2023-08-20 07:11] LABS: POTASSIUM 3.9 mmol/L (3.5-5.1)
[2023-08-20 07:14] LABS: BLOOD UREA NITROGEN 43.1 mg/dL (7-18)
[2023-08-20 07:17] LABS: CREATININE 1.1 mg/dL (0.55-1.3)
[2023-08-20 09:23] LABS: MAGNESIUM 1.9 mg/dL (1.8-2.4)
[2023-08-20] MEDS: metoPROLOL SUCCINATE 25 MG TAB.SR.24H (FP) PO SCH (10:13)
[2023-08-21] MEDS: ONDANSETRON 4 MG/2 ML VIAL IVPUSH ONE (00:07)
[2023-08-21] MEDS: PANTOPRAZOLE SODIUM 40 MG VIAL IVPUSH ONE (00:07)
[2023-08-21] MEDS: FAMOTIDINE 20 MG TABLET PO ONE (00:07)
[2023-08-21 07:42] LABS: POTASSIUM 4.2 mmol/L (3.5-5.1)
[2023-08-21 08:00] LABS: CALCIUM 8.2 mg/dL (8.5-10.1)
[2023-08-21 08:01] LABS: BLOOD UREA NITROGEN 38.8 mg/dL (7-18); MAGNESIUM 2.1 mg/dL (1.8-2.4)
[2023-08-22 07:55] LABS: BASO % 0.4 % (0-2.0); EOS % 10.8 % (0-4.5); HEMATOCRIT 27.2 % (35.4-49); HEMOGLOBIN 9.3 GM/dL (11.7-16.9); LYMPH % 15.7 % (8-40); MCH 28.8 pg (25.7-33.7); MCHC 34.2 g/dl (32.0-35.9); MEAN CELL VOLUME 84.2 fl (80-96); MEAN PLT VOLUME 6.2 fl (7.5-11.1); NEUT % 65.1 % (42.8-82.8); PLATELET COUNT 305 10^3/uL (134-434); RBC 3.24 M/mm3 (4.00-5.60); RDW 15.7 % (11.9-15.9); WHITE BLOOD COUNT 9.1 K/mm3 (4.0-10.0)
[2023-08-22 08:14] LABS: POTASSIUM 4.2 mmol/L (3.5-5.1)
[2023-08-22 08:17] LABS: CALCIUM 7.8 mg/dL (8.5-10.1)
[2023-08-22 08:18] LABS: BLOOD UREA NITROGEN 36.1 mg/dL (7-18)
[2023-08-22] MEDS: POLYETHYLENE GLYCOL (HEALTHYLAX) 3350 17 GM PACKET PO SCH (17:50)
[2023-08-23 07:54] LABS: HEMATOCRIT 27.6 % (35.4-49); HEMOGLOBIN 9.5 GM/dL (11.7-16.9); MCH 28.7 pg (25.7-33.7); MCHC 34.3 g/dl (32.0-35.9); MEAN CELL VOLUME 83.9 fl (80-96); MEAN PLT VOLUME 6.4 fl (7.5-11.1); PLATELET COUNT 324 10^3/uL (134-434); RDW 15.7 % (11.9-15.9); WHITE BLOOD COUNT 9.8 K/mm3 (4.0-10.0)
[2023-08-23 08:00] LABS: POTASSIUM 4.5 mmol/L (3.5-5.1)
[2023-08-23 08:01] LABS: BLOOD UREA NITROGEN 40.9 mg/dL (7-18)
[2023-08-23 13:41] VITALS: BMI 18.6
[2023-08-23] MEDS: SENNOSIDES 8.8 MG/5 ML SYRUP PO SCH (21:43)
[2023-08-24] MEDS ORDERED: LACTULOSE 20 GM/30 ML UDC (FOR ORAL USE ONLY) PO PRN (08:28)
[2023-08-24 08:48] LABS: HEMATOCRIT 29.5 % (35.4-49); MCH 28.7 pg (25.7-33.7); MCHC 33.9 g/dl (32.0-35.9); MEAN CELL VOLUME 84.7 fl (80-96); MEAN PLT VOLUME 6.3 fl (7.5-11.1); PLATELET COUNT 339 10^3/uL (134-434); RBC 3.48 M/mm3 (4.00-5.60); RDW 16.3 % (11.9-15.9); WHITE BLOOD COUNT 9.5 K/mm3 (4.0-10.0)
[2023-08-24 09:08] LABS: POTASSIUM 4.6 mmol/L (3.5-5.1)
[2023-08-24 09:12] LABS: CALCIUM 8.3 mg/dL (8.5-10.1)
[2023-08-24 09:13] LABS: BLOOD UREA NITROGEN 32.6 mg/dL (7-18)
[2023-08-24 09:18] LABS: CREATININE 1.1 mg/dL (0.55-1.3)
[2023-08-24] MEDS: SODIUM PHOSPHATE/NA BIPHOS 133 ML ENEMA RC ONE (11:34)
[2023-08-24 18:05] VITALS: TEMP 98
[2023-08-24 21:18] VITALS: BP 127/62; PULSE 74; RESP 16
== END 2023-08-24 20:40 | disposition home or self-care (01) | DRG 919 ==
LOC: JER 03:22 → JERBED 08:16 → J4S 09:18 → OBSVTOIN 08-18 11:34
PROVIDERS: ADMIT Internal Medicine; ATTEND Internal Medicine
DX: N99.820 Postprocedural hemorrhage of a genitourinary system organ or structure following a genitourinary system procedure (principal); L89.153 Pressure ulcer of sacral region, stage 3; D62 Acute posthemorrhagic anemia; I13.0 Hypertensive heart and chronic kidney disease with heart failure and stage 1 through stage 4 chronic kidney disease, or unspecified chronic kidney disease; N17.9 Acute kidney failure, unspecified; N39.0 Urinary tract infection, site not specified; I50.22 Chronic systolic (congestive) heart failure; I24.89 Other forms of acute ischemic heart disease; I47.20 Ventricular tachycardia, unspecified; D64.9 Anemia, unspecified; N40.0 Benign prostatic hyperplasia without lower urinary tract symptoms; E83.42 Hypomagnesemia; N18.30 Chronic kidney disease, stage 3 unspecified; I95.89 Other hypotension; N40.1 Benign prostatic hyperplasia with lower urinary tract symptoms; R33.8 Other retention of urine; K59.00 Constipation, unspecified; Y83.8 Other surgical procedures as the cause of abnormal reaction of the patient, or of later complication, without mention of misadventure at the time of the procedure
CPT/HCPCS: 0241U-QW; 36415; 36430; 71045-TC-FY; 80048; 80053; 81003; 83735; 83880; 84100; 84484; 85025; 85027; 85610; 85730; 86850; 86900; 86901; 86922; 87040; 87086; 87186; 93005; 93010; 94760; 97116-GP; 97161-GP; 99285-25; G0378; J0131; P9038; P9058

== ENCOUNTER 2023-08-26 05:03 | Observation (INO) | payer OTHER ==
[2023-08-26 05:43] LABS: BASO % 0.7 % (0-2.0); EOS % 8.1 % (0-4.5); HEMOGLOBIN 10.7 GM/dL (11.7-16.9); MCH 28.5 pg (25.7-33.7); MCHC 33.5 g/dl (32.0-35.9); MEAN CELL VOLUME 85.2 fl (80-96); MEAN PLT VOLUME 6.4 fl (7.5-11.1); NEUT % 68.2 % (42.8-82.8); PLATELET COUNT 354 10^3/uL (134-434); RBC 3.75 M/mm3 (4.00-5.60); RDW 16.1 % (11.9-15.9); WHITE BLOOD COUNT 11.6 K/mm3 (4.0-10.0)
[2023-08-26] MEDS ORDERED: ACETAMINOPHEN INJECTION 100 ML IVPB ONE (05:43)
[2023-08-26 05:47] LABS: EPI CELLS 12 /uL (0-25.1); HYALINE CASTS 3 /uL (0-3.1); URINE APPEARANCE TURBID; URINE BACTERIA 0 /uL (0-1359); URINE BILIRUBIN 1+ (NEGATIVE); URINE COLOR ORANGE; URINE GLUCOSE (UA) NEGATIVE (NEGATIVE); URINE KETONE NEGATIVE (NEGATIVE); URINE LEUK ESTERASE 2+ (NEGATIVE); URINE NITRITE NEGATIVE (NEGATIVE); URINE PROTEIN 2+ (NEGATIVE); URINE UROBILINOGEN 0.2 mg/dL (0.2-1.0); URINE WBC 267 /uL (0-25.8)
[2023-08-26 05:51] LABS: INR 0.98 (0.83-1.09); PROTHROMBIN TIME (PATIENT) 11.3 SEC (9.7-13.0)
[2023-08-26 05:54] LABS: ACTIVATED PTT 34.2 SECONDS (25.2-36.5)
[2023-08-26] MEDS: SODIUM CHLORIDE 0.9% 500 ML INFUS.BAG IV ONE (05:54)
[2023-08-26] MEDS: ACETAMINOPHEN 1000 MG/100 ML BAG IVPB ONE (05:54)
[2023-08-26 06:21] LABS: POTASSIUM 4.4 mmol/L (3.5-5.1)
[2023-08-26 06:23] LABS: CALCIUM 8.2 mg/dL (8.5-10.1)
[2023-08-26 06:24] LABS: BLOOD UREA NITROGEN 40.8 mg/dL (7-18); MAGNESIUM 2.2 mg/dL (1.8-2.4)
[2023-08-26 06:27] LABS: CREATININE 1.4 mg/dL (0.55-1.3)
[2023-08-26 06:28] LABS: BILIRUBIN,TOTAL 0.4 mg/dL (0.2-1); TOT PROT 6.1 g/dl (6.4-8.2)
[2023-08-26 06:30] LABS: ALBUMIN 2.8 g/dl (3.4-5.0)
[2023-08-26] MEDS ORDERED: MEROPENEM 1 GM VIAL (RESTRICTED TO ID) IVPB ONE (06:40)
[2023-08-26] MEDS: MEROPENEM 1 GM in DEXTROSE 5%-WATER 100 ML IVPB ONE (06:46)
[2023-08-26 07:36] LABS: URINE RBC 8934.6 /uL (0-23.9); YEAST NEGATIVE (NEGATIVE)
[2023-08-26] MEDS ORDERED: ACETAMINOPHEN 325 MG TABLET (FP) PO PRN (08:12)
[2023-08-26] MEDS ORDERED: ACETAMINOPHEN 1000 MG/100 ML BAG IVPB PRN (08:19)
[2023-08-26] MEDS: SODIUM CHLORIDE 1,000 ML IV SCH (09:25)
[2023-08-26] MEDS ORDERED: TAMSULOSIN HCL 0.4 MG CAP ONE (09:52)
[2023-08-26] MEDS ORDERED: ASPIRIN 81 MG CHEWABLE TABLETS ONE (09:52)
[2023-08-26] MEDS: FINASTERIDE 5 MG TABLET (FP) PO SCH (10:50)
[2023-08-26] MEDS: ASPIRIN 81 MG CHEWABLE TABLETS PO SCH (10:50)
[2023-08-26] MEDS: TAMSULOSIN HCL 0.4 MG CAP PO SCH (10:50)
[2023-08-26] MEDS: metoPROLOL SUCCINATE 25 MG TAB.SR.24H (FP) PO SCH (10:55)
[2023-08-26] MEDS ORDERED: ALBUTEROL SO4 2.5/IPRATROPIUM 0.5 INH SOL 3 ML VIAL.NEB. NEB PRN (15:24)
[2023-08-26] MEDS: AMINO ACIDS/PROTEIN HYDROLYS 30 ML LIQUID.PKT PO SCH (17:22)
[2023-08-26 17:30] VITALS: BMI 17.7
[2023-08-26] MEDS ORDERED: MEROPENEM 1 GM in DEXTROSE 5%-WATER 100 ML IVPB SCH ×2 (18:00→22:00)
[2023-08-26] MEDS: ATORVASTATIN CA 40 MG TABLET (FP) PO SCH (21:34)
[2023-08-26] MEDS: MELATONIN 5 MG TABLETS PO SCH (21:34)
[2023-08-27 07:42] LABS: BASO % 0.5 % (0-2.0); EOS % 10.4 % (0-4.5); HEMATOCRIT 27.1 % (35.4-49); HEMOGLOBIN 9.2 GM/dL (11.7-16.9); LYMPH % 21.2 % (8-40); MCH 28.6 pg (25.7-33.7); MCHC 33.7 g/dl (32.0-35.9); MEAN CELL VOLUME 84.7 fl (80-96); MEAN PLT VOLUME 6.6 fl (7.5-11.1); MONO % 7.4 % (3.8-10.2); NEUT % 60.5 % (42.8-82.8); PLATELET COUNT 322 10^3/uL (134-434); RDW 16.1 % (11.9-15.9); WHITE BLOOD COUNT 8.3 K/mm3 (4.0-10.0)
[2023-08-27 07:55] LABS: POTASSIUM 4.5 mmol/L (3.5-5.1)
[2023-08-27 08:01] LABS: BLOOD UREA NITROGEN 31.8 mg/dL (7-18); MAGNESIUM 2.3 mg/dL (1.8-2.4)
[2023-08-27 08:03] LABS: PHOSPHOROUS 3.5 mg/dL (2.5-4.9)
[2023-08-27 08:04] LABS: CREATININE 1.2 mg/dL (0.55-1.3)
[2023-08-27 08:58] LABS: EPI CELLS 8 /uL (0-25.1); HYALINE CASTS 0 /uL (0-3.1); PH,URINE 6.5 (5.0-8.0); URINE APPEARANCE CLOUDY; URINE BACTERIA 1 /uL (0-1359); URINE BILIRUBIN NEGATIVE (NEGATIVE); URINE COLOR RED; URINE GLUCOSE (UA) NEGATIVE (NEGATIVE); URINE KETONE NEGATIVE (NEGATIVE); URINE LEUK ESTERASE 1+ (NEGATIVE); URINE NITRITE NEGATIVE (NEGATIVE); URINE PROTEIN 1+ (NEGATIVE); URINE RBC 17045 /uL (0-23.9); URINE WBC 88 /uL (0-25.8)
[2023-08-28 08:03] LABS: BASO % 0.7 % (0-2.0); EOS % 9.7 % (0-4.5); HEMATOCRIT 26.3 % (35.4-49); MCHC 34.1 g/dl (32.0-35.9); MEAN CELL VOLUME 85.1 fl (80-96); MEAN PLT VOLUME 6.5 fl (7.5-11.1); MONO % 6.6 % (3.8-10.2); PLATELET COUNT 298 10^3/uL (134-434); RBC 3.09 M/mm3 (4.00-5.60); RDW 16.5 % (11.9-15.9); WHITE BLOOD COUNT 7.6 K/mm3 (4.0-10.0)
[2023-08-28 08:13] LABS: POTASSIUM 4.6 mmol/L (3.5-5.1)
[2023-08-28 08:17] LABS: CALCIUM 8.1 mg/dL (8.5-10.1)
[2023-08-28 08:18] LABS: ALBUMIN 2.4 g/dl (3.4-5.0); BLOOD UREA NITROGEN 34.5 mg/dL (7-18)
[2023-08-28 08:21] LABS: CREATININE 1.1 mg/dL (0.55-1.3)
[2023-08-28 08:23] LABS: BILIRUBIN,TOTAL 0.4 mg/dL (0.2-1)
[2023-08-28] MEDS: ASCORBIC ACID 250 MG TABLET (FP) PO SCH (09:56)
[2023-08-28] MEDS: MULTIVITAMINS (DAILY MVI) TABLET (FP) PO SCH (09:56)
[2023-08-28 12:00] VITALS: RESP 18
[2023-08-28 14:05] VITALS: BP 139/66; PULSE 69; TEMP 98.2
== END 2023-08-28 16:47 | disposition home health service (06) ==
LOC: JER 05:03 → JERBED 08:00 → J7W 15:13
PROVIDERS: ADMIT Internal Medicine; ATTEND Nurse Practitioner Acute Care
PROC: 3E033NZ Introduction of Analgesics, Hypnotics, Sedatives into Peripheral Vein, Percutaneous Approach (ICD-10-PCS; principal; 2023-08-26)
PROC: 3E0337Z Introduction of Electrolytic and Water Balance Substance into Peripheral Vein, Percutaneous Approach (ICD-10-PCS; 2023-08-26)
DX: J44.9 Chronic obstructive pulmonary disease, unspecified (principal); E78.5 Hyperlipidemia, unspecified; I50.20 Unspecified systolic (congestive) heart failure; N17.9 Acute kidney failure, unspecified; E86.0 Dehydration; E87.1 Hypo-osmolality and hyponatremia; I42.8 Other cardiomyopathies; I47.19 Other supraventricular tachycardia; N31.2 Flaccid neuropathic bladder, not elsewhere classified; N40.0 Benign prostatic hyperplasia without lower urinary tract symptoms; D64.9 Anemia, unspecified; Z87.898 Personal history of other specified conditions; Z86.19 Personal history of other infectious and parasitic diseases
CPT/HCPCS: 0241U-QW; 36415; 71045-TC-FY; 80048; 80053; 81003; 83735; 84100; 85025; 85610; 85730; 87040; 87086; 93005; 93010; 96365; 96375; 97116-GP; 97161-GP; 99285-25; G0378; J0131

== ENCOUNTER 2023-08-31 01:40 | Emergency (ER) | payer OTHER ==
[2023-08-31 02:43] VITALS: BMI 19.8
[2023-08-31 04:02] LABS: BASO % 0.5 % (0-2.0); EOS % 6.5 % (0-4.5); HEMATOCRIT 29.7 % (35.4-49); LYMPH % 18.9 % (8-40); MCH 28.8 pg (25.7-33.7); MCHC 33.7 g/dl (32.0-35.9); MEAN CELL VOLUME 85.4 fl (80-96); MEAN PLT VOLUME 6.7 fl (7.5-11.1); MONO % 7.4 % (3.8-10.2); NEUT % 66.7 % (42.8-82.8); PLATELET COUNT 311 10^3/uL (134-434); RBC 3.48 M/mm3 (4.00-5.60); RDW 16.4 % (11.9-15.9); WHITE BLOOD COUNT 8.6 K/mm3 (4.0-10.0)
[2023-08-31 04:23] LABS: POTASSIUM 4.6 mmol/L (3.5-5.1)
[2023-08-31 04:25] LABS: CALCIUM 8.6 mg/dL (8.5-10.1)
[2023-08-31 04:26] LABS: BLOOD UREA NITROGEN 28.8 mg/dL (7-18)
[2023-08-31 04:29] LABS: CREATININE 1.4 mg/dL (0.55-1.3); INR 0.98 (0.83-1.09); PROTHROMBIN TIME (PATIENT) 11.1 SEC (9.7-13.0)
[2023-08-31 04:30] LABS: BILIRUBIN,TOTAL 0.3 mg/dL (0.2-1)
[2023-08-31 04:31] LABS: ACTIVATED PTT 34.6 SECONDS (25.2-36.5)
[2023-08-31 05:16] LABS: EPI CELLS 2 /uL (0-25.1); HYALINE CASTS 0 /uL (0-3.1); PH,URINE 6.5 (5.0-8.0); URINE APPEARANCE CLEAR; URINE BACTERIA 1 /uL (0-1359); URINE BILIRUBIN NEGATIVE (NEGATIVE); URINE COLOR YELLOW; URINE GLUCOSE (UA) NEGATIVE (NEGATIVE); URINE KETONE NEGATIVE (NEGATIVE); URINE LEUK ESTERASE TRACE (NEGATIVE); URINE NITRITE NEGATIVE (NEGATIVE); URINE PROTEIN TRACE (NEGATIVE); URINE RBC 12 /uL (0-23.9); URINE UROBILINOGEN 0.2 mg/dL (0.2-1.0); URINE WBC 5 /uL (0-25.8)
[2023-08-31 06:56] VITALS: TEMP 97.9
[2023-08-31 11:29] VITALS: BP 153/62; PULSE 86; RESP 18
== END 2023-08-31 11:29 | disposition home or self-care (01) ==
LOC: JER 01:40
DX: R06.02 Shortness of breath (principal); Z20.822 Contact with and (suspected) exposure to COVID-19
CPT/HCPCS: 0241U-QW; 36415; 71045-TC-FY; 80053; 81003; 84484; 85025; 85610; 85730; 93005; 93010; 99285-25

== ENCOUNTER 2023-10-18 05:01 | Inpatient (IN) | payer OTHER ==
[2023-10-18] MEDS ORDERED: ACETAMINOPHEN INJECTION 100 ML IVPB ONE (05:52)
[2023-10-18] MEDS: ACETAMINOPHEN 1000 MG/100 ML BAG IVPB ONE (06:04)
[2023-10-18] MEDS: SODIUM CHLORIDE 0.9% 500 ML INFUS.BAG IV ONE (06:04)
[2023-10-18] MEDS ORDERED: PIPERACILLIN/TAZOB 4.5 GM 4.5 GM/100 ML BAG IVPB ONE (06:06)
[2023-10-18] MEDS: PIPERACILLIN/TAZOB 4.5 GM 4.5 GM in DEXTROSE 5%-WATER 100 ML IVPB ONE (06:17)
[2023-10-18 06:26] LABS: BASO % 0.7 % (0-2.0); EOS % 1.6 % (0-4.5); HEMATOCRIT 33.3 % (35.4-49); HEMOGLOBIN 11.3 GM/dL (11.7-16.9); LYMPH % 8.7 % (8-40); MCHC 33.9 g/dl (32.0-35.9); MEAN CELL VOLUME 85.6 fl (80-96); MEAN PLT VOLUME 6.3 fl (7.5-11.1); MONO % 5.9 % (3.8-10.2); NEUT % 83.1 % (42.8-82.8); PLATELET COUNT 329 10^3/uL (134-434); RBC 3.89 M/mm3 (4.00-5.60); RDW 15.3 % (11.9-15.9); WHITE BLOOD COUNT 8.8 K/mm3 (4.0-10.0)
[2023-10-18 06:44] LABS: POTASSIUM 3.8 mmol/L (3.5-5.1)
[2023-10-18 06:46] LABS: ALBUMIN 3.4 g/dl (3.4-5.0); CALCIUM 8.8 mg/dL (8.5-10.1); MAGNESIUM 1.9 mg/dL (1.8-2.4)
[2023-10-18 06:49] LABS: CREATININE 1.4 mg/dL (0.55-1.3)
[2023-10-18 06:51] LABS: BILIRUBIN,TOTAL 0.5 mg/dL (0.2-1); TOT PROT 7.1 g/dl (6.4-8.2)
[2023-10-18 08:32] LABS: URINE APPEARANCE Cloudy; URINE BILIRUBIN Negative (NEGATIVE); URINE COLOR Yellow; URINE GLUCOSE (UA) Negative (NEGATIVE); URINE KETONE Negative (NEGATIVE); URINE LEUK ESTERASE 3+ (NEGATIVE); URINE NITRITE Negative (NEGATIVE); URINE PROTEIN 2+ (NEGATIVE); URINE UROBILINOGEN 0.2 mg/dL (0.2-1.0)
[2023-10-18] MEDS ORDERED: ERTAPENEM SODIUM 1 GM VIAL ONE (10:47)
[2023-10-18] MEDS: ERTAPENEM SODIUM 1 GM in SODIUM CHLORIDE 50 ML IVPB SCH (10:53)
[2023-10-18] MEDS: D5-1/2NS+20 MEQ KCL - 20 MEQ/1,000 ML INFUS.BAG IV SCH (13:22)
[2023-10-18] MEDS ORDERED: metoPROLOL SUCCINATE 25 MG TAB.SR.24H (FP) PO ONE (13:45)
[2023-10-18] MEDS: metoPROLOL SUCCINATE 25 MG TAB.SR.24H (FP) PO SCH (13:51)
[2023-10-18] MEDS: SODIUM CHLORIDE 1,000 ML IV SCH (13:52)
[2023-10-18] MEDS: SODIUM CHLORIDE 0.45% 1,000 ML IV SCH (18:53)
[2023-10-19 07:16] LABS: BASO % 0.4 % (0-2.0); EOS % 0.4 % (0-4.5); HEMATOCRIT 28.5 % (35.4-49); HEMOGLOBIN 9.6 GM/dL (11.7-16.9); LYMPH % 12.5 % (8-40); MCH 28.8 pg (25.7-33.7); MCHC 33.6 g/dl (32.0-35.9); MEAN CELL VOLUME 85.8 fl (80-96); MEAN PLT VOLUME 6.5 fl (7.5-11.1); NEUT % 77.7 % (42.8-82.8); PLATELET COUNT 258 10^3/uL (134-434); RBC 3.33 M/mm3 (4.00-5.60); RDW 15.2 % (11.9-15.9); WHITE BLOOD COUNT 7.9 K/mm3 (4.0-10.0)
[2023-10-19 07:30] LABS: POTASSIUM 4.1 mmol/L (3.5-5.1)
[2023-10-19 07:35] LABS: CALCIUM 7.9 mg/dL (8.5-10.1)
[2023-10-19 07:36] LABS: BLOOD UREA NITROGEN 24.4 mg/dL (7-18); MAGNESIUM 1.8 mg/dL (1.8-2.4)
[2023-10-19 07:39] LABS: CREATININE 1.1 mg/dL (0.55-1.3); PHOSPHOROUS 2.7 mg/dL (2.5-4.9)
[2023-10-19] MEDS: ASPIRIN COATED 81 MG TABLET.EC PO SCH (10:01)
[2023-10-19] MEDS: MEROPENEM 1 GM in DEXTROSE 5%-WATER 100 ML IVPB SCH (10:01)
[2023-10-19 16:40] LABS: POTASSIUM 3.5 mmol/L (3.5-5.1)
[2023-10-19 16:42] LABS: BLOOD UREA NITROGEN 25.1 mg/dL (7-18); CALCIUM 8.1 mg/dL (8.5-10.1)
[2023-10-19 16:43] LABS: MAGNESIUM 1.9 mg/dL (1.8-2.4)
[2023-10-19 16:45] LABS: PHOSPHOROUS 2.1 mg/dL (2.5-4.9)
[2023-10-19 16:46] LABS: CREATININE 1.2 mg/dL (0.55-1.3)
[2023-10-19 16:47] LABS: BILIRUBIN,TOTAL 0.2 mg/dL (0.2-1); TOT PROT 5.7 g/dl (6.4-8.2)
[2023-10-19 17:34] LABS: ALBUMIN 2.5 g/dl (3.4-5.0)
[2023-10-19] MEDS: NAPH,MB-DB/K PH,MBDB POWDER PACKET PO ONE (17:39)
[2023-10-19] MEDS: LACTOBACILLUS ACIDOPHILUS 1 TABLET PO SCH (22:18)
[2023-10-19] MEDS: HEPARIN NA (PORCINE) 5,000 UNITS/ML 1ML VIAL SQ SCH (22:18)
[2023-10-20] MEDS: TAMSULOSIN HCL 0.4 MG CAP PO SCH (09:05)
[2023-10-20] MEDS: FUROSEMIDE 20 MG TABLET (FP) PO SCH (11:04)
[2023-10-20] MEDS: FINASTERIDE 5 MG TABLET (FP) PO SCH (11:05)
[2023-10-20 14:08] LABS: BASO % 0.6 % (0-2.0); EOS % 3.1 % (0-4.5); HEMATOCRIT 31.9 % (35.4-49); HEMOGLOBIN 10.9 GM/dL (11.7-16.9); LYMPH % 18.5 % (8-40); MCH 28.8 pg (25.7-33.7); MCHC 34.3 g/dl (32.0-35.9); MEAN CELL VOLUME 84.2 fl (80-96); MEAN PLT VOLUME 6.3 fl (7.5-11.1); MONO % 9.8 % (3.8-10.2); PLATELET COUNT 254 10^3/uL (134-434); RBC 3.79 M/mm3 (4.00-5.60); RDW 15.6 % (11.9-15.9); WHITE BLOOD COUNT 5.3 K/mm3 (4.0-10.0)
[2023-10-20 14:32] LABS: POTASSIUM 3.6 mmol/L (3.5-5.1)
[2023-10-20 14:34] LABS: ALBUMIN 2.6 g/dl (3.4-5.0); CALCIUM 8.4 mg/dL (8.5-10.1); MAGNESIUM 1.9 mg/dL (1.8-2.4)
[2023-10-20 14:37] LABS: CREATININE 1.3 mg/dL (0.55-1.3); PHOSPHOROUS 2.2 mg/dL (2.5-4.9)
[2023-10-20 14:38] LABS: BILIRUBIN,TOTAL 0.2 mg/dL (0.2-1)
[2023-10-20] MEDS: LINEZOLID 600 MG TABLET (RESTRICTED TO ID) PO SCH (17:29)
[2023-10-20] MEDS: NAPH,MB-DB/K PH,MBDB POWDER PACKET PO ONE (17:29)
[2023-10-21 07:45] LABS: HEMATOCRIT 28.4 % (35.4-49); HEMOGLOBIN 9.8 GM/dL (11.7-16.9); MCH 29.3 pg (25.7-33.7); MCHC 34.5 g/dl (32.0-35.9); MEAN CELL VOLUME 84.9 fl (80-96); MEAN PLT VOLUME 6.8 fl (7.5-11.1); PLATELET COUNT 236 10^3/uL (134-434); RBC 3.35 M/mm3 (4.00-5.60); RDW 14.9 % (11.9-15.9); WHITE BLOOD COUNT 5.3 K/mm3 (4.0-10.0)
[2023-10-21 07:49] LABS: CALCIUM 8.2 mg/dL (8.5-10.1)
[2023-10-21 07:50] LABS: ALBUMIN 2.4 g/dl (3.4-5.0); BLOOD UREA NITROGEN 29.5 mg/dL (7-18)
[2023-10-21 07:53] LABS: CREATININE 1.3 mg/dL (0.55-1.3); PHOSPHOROUS 2.8 mg/dL (2.5-4.9)
[2023-10-21 07:54] LABS: BILIRUBIN,TOTAL 0.3 mg/dL (0.2-1); TOT PROT 5.6 g/dl (6.4-8.2)
[2023-10-22 08:01] LABS: HEMATOCRIT 27.3 % (35.4-49); HEMOGLOBIN 9.4 GM/dL (11.7-16.9); MCH 29.3 pg (25.7-33.7); MCHC 34.6 g/dl (32.0-35.9); MEAN CELL VOLUME 84.6 fl (80-96); MEAN PLT VOLUME 6.4 fl (7.5-11.1); PLATELET COUNT 236 10^3/uL (134-434); RBC 3.22 M/mm3 (4.00-5.60); RDW 15.1 % (11.9-15.9); WHITE BLOOD COUNT 5.6 K/mm3 (4.0-10.0)
[2023-10-22 08:09] LABS: POTASSIUM 4.5 mmol/L (3.5-5.1)
[2023-10-22 08:30] LABS: CALCIUM 8.2 mg/dL (8.5-10.1)
[2023-10-22 08:32] LABS: ALBUMIN 2.5 g/dl (3.4-5.0); BLOOD UREA NITROGEN 32.8 mg/dL (7-18); MAGNESIUM 2.2 mg/dL (1.8-2.4)
[2023-10-22 08:35] LABS: BILIRUBIN,TOTAL 0.4 mg/dL (0.2-1); CREATININE 1.2 mg/dL (0.55-1.3); PHOSPHOROUS 2.7 mg/dL (2.5-4.9); TOT PROT 5.7 g/dl (6.4-8.2)
[2023-10-22] MEDS: FUROSEMIDE 20 MG TABLET (FP) PO SCH (10:17)
[2023-10-22] MEDS ORDERED: MINERAL OIL ENEMA 133 ML ENEMA RC PRN (12:09)
[2023-10-22] MEDS: GLYCERIN 1 RECTAL SUPPOSITORY, ADULT RC ONE (14:10)
[2023-10-23 07:36] LABS: HEMATOCRIT 28.1 % (35.4-49); HEMOGLOBIN 9.7 GM/dL (11.7-16.9); MCH 29.2 pg (25.7-33.7); MCHC 34.4 g/dl (32.0-35.9); MEAN CELL VOLUME 84.8 fl (80-96); MEAN PLT VOLUME 6.7 fl (7.5-11.1); PLATELET COUNT 257 10^3/uL (134-434); RBC 3.31 M/mm3 (4.00-5.60); RDW 14.8 % (11.9-15.9); WHITE BLOOD COUNT 4.7 K/mm3 (4.0-10.0)
[2023-10-23 07:51] LABS: POTASSIUM 5.1 mmol/L (3.5-5.1)
[2023-10-23 08:09] LABS: ALBUMIN 2.6 g/dl (3.4-5.0); BLOOD UREA NITROGEN 35.1 mg/dL (7-18); CALCIUM 8.3 mg/dL (8.5-10.1); MAGNESIUM 2.1 mg/dL (1.8-2.4)
[2023-10-23 08:12] LABS: CREATININE 1.3 mg/dL (0.55-1.3); PHOSPHOROUS 2.9 mg/dL (2.5-4.9)
[2023-10-23 08:13] LABS: BILIRUBIN,TOTAL 0.3 mg/dL (0.2-1); TOT PROT 5.9 g/dl (6.4-8.2)
[2023-10-24 08:42] LABS: BASO % 0.9 % (0-2.0); EOS % 4.9 % (0-4.5); HEMATOCRIT 28.4 % (35.4-49); HEMOGLOBIN 9.7 GM/dL (11.7-16.9); LYMPH % 29.7 % (8-40); MCH 29.1 pg (25.7-33.7); MCHC 34.2 g/dl (32.0-35.9); MEAN PLT VOLUME 6.6 fl (7.5-11.1); MONO % 7.6 % (3.8-10.2); NEUT % 56.9 % (42.8-82.8); PLATELET COUNT 265 10^3/uL (134-434); RBC 3.34 M/mm3 (4.00-5.60); RDW 15.4 % (11.9-15.9); WHITE BLOOD COUNT 5.1 K/mm3 (4.0-10.0)
[2023-10-24 08:51] LABS: POTASSIUM 4.7 mmol/L (3.5-5.1)
[2023-10-24 08:53] LABS: CALCIUM 8.4 mg/dL (8.5-10.1)
[2023-10-24 08:54] LABS: ALBUMIN 2.7 g/dl (3.4-5.0); MAGNESIUM 2.3 mg/dL (1.8-2.4)
[2023-10-24 08:59] LABS: BILIRUBIN,TOTAL 0.3 mg/dL (0.2-1); TOT PROT 6.1 g/dl (6.4-8.2)
[2023-10-24 09:00] LABS: CREATININE 1.3 mg/dL (0.55-1.3)
[2023-10-25] MEDS: MELATONIN 5 MG TABLETS PO ONE (06:56)
[2023-10-25 08:23] LABS: BASO % 0.9 % (0-2.0); HEMATOCRIT 28.3 % (35.4-49); HEMOGLOBIN 9.6 GM/dL (11.7-16.9); LYMPH % 31.2 % (8-40); MCH 28.9 pg (25.7-33.7); MEAN CELL VOLUME 84.9 fl (80-96); MEAN PLT VOLUME 6.6 fl (7.5-11.1); MONO % 6.9 % (3.8-10.2); PLATELET COUNT 261 10^3/uL (134-434); RBC 3.33 M/mm3 (4.00-5.60); RDW 15.5 % (11.9-15.9); WHITE BLOOD COUNT 5.4 K/mm3 (4.0-10.0)
[2023-10-25 08:42] LABS: POTASSIUM 4.9 mmol/L (3.5-5.1)
[2023-10-25 08:44] LABS: CALCIUM 8.7 mg/dL (8.5-10.1)
[2023-10-25 08:45] LABS: ALBUMIN 2.6 g/dl (3.4-5.0); BLOOD UREA NITROGEN 41.9 mg/dL (7-18); MAGNESIUM 2.5 mg/dL (1.8-2.4)
[2023-10-25 08:48] LABS: CREATININE 1.5 mg/dL (0.55-1.3); PHOSPHOROUS 3.3 mg/dL (2.5-4.9)
[2023-10-25 08:50] LABS: BILIRUBIN,TOTAL 0.2 mg/dL (0.2-1); TOT PROT 5.8 g/dl (6.4-8.2)
[2023-10-25 12:32] VITALS: BMI 19.2
[2023-10-25] MEDS: SODIUM CHLORIDE 1,000 ML IV SCH (12:51)
[2023-10-26 06:11] VITALS: RESP 19; TEMP 97.3
[2023-10-26 07:11] LABS: HEMATOCRIT 27.2 % (35.4-49); HEMOGLOBIN 9.2 GM/dL (11.7-16.9); MCH 29.3 pg (25.7-33.7); MEAN PLT VOLUME 6.5 fl (7.5-11.1); PLATELET COUNT 263 10^3/uL (134-434); RBC 3.16 M/mm3 (4.00-5.60); RDW 15.2 % (11.9-15.9); WHITE BLOOD COUNT 6.5 K/mm3 (4.0-10.0)
[2023-10-26 07:33] LABS: POTASSIUM 5.1 mmol/L (3.5-5.1)
[2023-10-26 07:37] LABS: BLOOD UREA NITROGEN 40.4 mg/dL (7-18); CALCIUM 8.1 mg/dL (8.5-10.1)
[2023-10-26 07:40] LABS: MAGNESIUM 2.4 mg/dL (1.8-2.4)
[2023-10-26 07:41] LABS: CREATININE 1.2 mg/dL (0.55-1.3); PHOSPHOROUS 2.8 mg/dL (2.5-4.9)
[2023-10-26 10:04] VITALS: BP 135/66; PULSE 83
[2023-10-27] MEDS ORDERED: FUROSEMIDE 20 MG TABLET (FP) PO SCH (10:00)
== END 2023-10-26 10:54 | disposition home or self-care (01) | DRG 699 ==
LOC: JER 05:01 → JERBED 09:34 → J4W 20:39
PROVIDERS: ADMIT Internal Medicine; ATTEND Internal Medicine
DX: T83.518A Infection and inflammatory reaction due to other urinary catheter, initial encounter (principal); I13.0 Hypertensive heart and chronic kidney disease with heart failure and stage 1 through stage 4 chronic kidney disease, or unspecified chronic kidney disease; N39.0 Urinary tract infection, site not specified; N17.9 Acute kidney failure, unspecified; I47.19 Other supraventricular tachycardia; I50.22 Chronic systolic (congestive) heart failure; Z68.1 Body mass index [BMI] 19.9 or less, adult; B96.20 Unspecified Escherichia coli [E. coli] as the cause of diseases classified elsewhere; B95.2 Enterococcus as the cause of diseases classified elsewhere; B96.5 Pseudomonas (aeruginosa) (mallei) (pseudomallei) as the cause of diseases classified elsewhere; N40.0 Benign prostatic hyperplasia without lower urinary tract symptoms; J44.9 Chronic obstructive pulmonary disease, unspecified; D64.9 Anemia, unspecified; N31.9 Neuromuscular dysfunction of bladder, unspecified; E07.81 Sick-euthyroid syndrome; R33.9 Retention of urine, unspecified; N18.9 Chronic kidney disease, unspecified; K59.00 Constipation, unspecified; R63.6 Underweight; Y84.8 Other medical procedures as the cause of abnormal reaction of the patient, or of later complication, without mention of misadventure at the time of the procedure
CPT/HCPCS: 0241U-QW; 36415; 71045-TC-FY; 80048; 80053; 81003; 83735; 84100; 84484; 85025; 85027; 87040; 87070; 87086; 87186; 87205; 93005; 93010; 97116-GP; 97162-GP; 99285-25; J0131; J1644

== ENCOUNTER 2023-11-15 02:55 | Inpatient (IN) | payer OTHER ==
[2023-11-15] MEDS: SODIUM CHLORIDE 0.9% 500 ML INFUS.BAG IV ONE (04:17)
[2023-11-15 05:02] LABS: EPI CELLS 4 /uL (0-25.1); HYALINE CASTS 1 /uL (0-3.1); PH,URINE 5.5 (5.0-8.0); URINE APPEARANCE CLOUDY; URINE BACTERIA 6746 /uL (0-1359); URINE BILIRUBIN NEGATIVE (NEGATIVE); URINE COLOR YELLOW; URINE GLUCOSE (UA) NEGATIVE (NEGATIVE); URINE KETONE NEGATIVE (NEGATIVE); URINE LEUK ESTERASE 3+ (NEGATIVE); URINE NITRITE NEGATIVE (NEGATIVE); URINE PROTEIN 1+ (NEGATIVE); URINE RBC 94 /uL (0-23.9); URINE UROBILINOGEN 0.2 mg/dL (0.2-1.0); URINE WBC 2071 /uL (0-25.8)
[2023-11-15 05:14] LABS: BASO % 0.8 % (0-2.0); EOS % 4.9 % (0-4.5); HEMATOCRIT 30.1 % (35.4-49); HEMOGLOBIN 10.2 GM/dL (11.7-16.9); LYMPH % 22.7 % (8-40); MCH 29.4 pg (25.7-33.7); MCHC 33.9 g/dl (32.0-35.9); MEAN CELL VOLUME 86.6 fl (80-96); MEAN PLT VOLUME 6.8 fl (7.5-11.1); MONO % 7.9 % (3.8-10.2); NEUT % 63.7 % (42.8-82.8); PLATELET COUNT 320 10^3/uL (134-434); RBC 3.48 M/mm3 (4.00-5.60); RDW 15.9 % (11.9-15.9); WHITE BLOOD COUNT 7.5 K/mm3 (4.0-10.0)
[2023-11-15] MEDS ORDERED: MEROPENEM 1 GM VIAL (RESTRICTED TO ID) IVPB ONE ×2 (05:53→12:46)
[2023-11-15] MEDS: MEROPENEM 1 GM in DEXTROSE 5%-WATER 100 ML IVPB ONE (06:01)
[2023-11-15] MEDS: LINEZOLID 600 MG TABLET (RESTRICTED TO ID) PO ONE (06:10)
[2023-11-15 06:14] LABS: POTASSIUM 4.7 mmol/L (3.5-5.1)
[2023-11-15 06:16] LABS: ALBUMIN 3.1 g/dl (3.4-5.0); BLOOD UREA NITROGEN 50.9 mg/dL (7-18); CALCIUM 8.8 mg/dL (8.5-10.1)
[2023-11-15 06:19] LABS: CREATININE 1.4 mg/dL (0.55-1.3)
[2023-11-15 06:20] LABS: BILIRUBIN,TOTAL 0.2 mg/dL (0.2-1); TOT PROT 6.6 g/dl (6.4-8.2)
[2023-11-15] MEDS ORDERED: TAMSULOSIN HCL 0.4 MG CAP ONE (08:52)
[2023-11-15] MEDS ORDERED: VANCOMYCIN 500 MG VIAL (RESTRICTED TO ID ONLY) ONE (08:56)
[2023-11-15] MEDS ORDERED: INSULIN (NOVOLOG MIX 70/30) 100 UNITS/ML MDV SQ ONE (08:57)
[2023-11-15] MEDS: VANCOMYCIN ORAL SOLUTION 125 MG/2.5 ML PO ONE (09:48)
[2023-11-15] MEDS: TAMSULOSIN HCL 0.4 MG CAP PO SCH (09:49)
[2023-11-15] MEDS ORDERED: LINEZOLID 600 MG TABLET (RESTRICTED TO ID) PO SCH ×2 (10:00→22:00)
[2023-11-15] MEDS ORDERED: VANCOMYCIN ORAL SOLUTION 125 MG/2.5 ML PO SCH (12:00)
[2023-11-15] MEDS ORDERED: AMPICILLIN SODIUM 2 GM VIAL ONE (12:35)
[2023-11-15] MEDS: LACTOBACILLUS ACIDOPHILUS 1 TABLET PO SCH (12:38)
[2023-11-15] MEDS: AMPICILLIN - 2 GM in SODIUM CHLORIDE 100 ML IVPB SCH ×2 (12:38→14:12)
[2023-11-15] MEDS ORDERED: LISINOPRIL 5 MG TABLET ONE (12:45)
[2023-11-15] MEDS ORDERED: PANTOPRAZOLE 40 MG TABLET PO ONE (12:45)
[2023-11-15] MEDS ORDERED: metoPROLOL SUCCINATE 25 MG TAB.SR.24H (FP) PO ONE (12:45)
[2023-11-15] MEDS ORDERED: ASPIRIN COATED 81 MG TABLET.EC ONE (12:45)
[2023-11-15] MEDS ORDERED: FUROSEMIDE 20 MG TABLET (FP) ONE (12:46)
[2023-11-15] MEDS ORDERED: ENOXAPARIN NA (PORCINE) 40 MG/0.4 ML DISP.SYRIN SQ ONE (12:46)
[2023-11-15] MEDS: FUROSEMIDE 20 MG TABLET (FP) PO SCH (12:47)
[2023-11-15] MEDS: LISINOPRIL 5 MG TABLET PO SCH (12:47)
[2023-11-15] MEDS: ENOXAPARIN NA (PORCINE) 40 MG/0.4 ML DISP.SYRIN SQ SCH (12:47)
[2023-11-15] MEDS: ASPIRIN COATED 81 MG TABLET.EC PO SCH (12:47)
[2023-11-15] MEDS: MEROPENEM 1 GM in DEXTROSE 5%-WATER 100 ML IVPB SCH ×2 (12:47→17:28)
[2023-11-15] MEDS: PANTOPRAZOLE SODIUM 40 MG VIAL IVPUSH SCH (12:48)
[2023-11-15] MEDS: FINASTERIDE 5 MG TABLET (FP) PO SCH (12:48)
[2023-11-15] MEDS: metoPROLOL SUCCINATE 25 MG TAB.SR.24H (FP) PO SCH (12:48)
[2023-11-15] MEDS ORDERED: MEROPENEM 1 GM in DEXTROSE 5%-WATER 100 ML IVPB SCH (14:00)
[2023-11-16] MEDS: LINEZOLID 600 MG TABLET (RESTRICTED TO ID) PO SCH (02:08)
[2023-11-16 06:49] VITALS: RESP 18
[2023-11-16 07:05] LABS: HEMOGLOBIN 9.5 GM/dL (11.7-16.9); MCH 29.2 pg (25.7-33.7); MCHC 33.8 g/dl (32.0-35.9); MEAN CELL VOLUME 86.2 fl (80-96); MEAN PLT VOLUME 6.3 fl (7.5-11.1); PLATELET COUNT 279 10^3/uL (134-434); RBC 3.25 M/mm3 (4.00-5.60); RDW 15.3 % (11.9-15.9)
[2023-11-16 07:28] LABS: POTASSIUM 4.4 mmol/L (3.5-5.1)
[2023-11-16 07:30] LABS: CALCIUM 8.7 mg/dL (8.5-10.1)
[2023-11-16 07:31] LABS: ALBUMIN 2.6 g/dl (3.4-5.0); BLOOD UREA NITROGEN 37.7 mg/dL (7-18)
[2023-11-16 07:34] LABS: CREATININE 1.2 mg/dL (0.55-1.3)
[2023-11-16 07:36] LABS: BILIRUBIN,TOTAL 0.5 mg/dL (0.2-1); PHOSPHOROUS 3.5 mg/dL (2.5-4.9); TOT PROT 5.7 g/dl (6.4-8.2)
[2023-11-16] MEDS ORDERED: ENOXAPARIN NA (PORCINE) 40 MG/0.4 ML DISP.SYRIN SQ ONE (08:46)
[2023-11-17] MEDS: PANTOPRAZOLE 40 MG TABLET PO SCH (09:23)
[2023-11-17 09:55] LABS: BASO % 0.7 % (0-2.0); EOS % 6.4 % (0-4.5); HEMATOCRIT 27.6 % (35.4-49); HEMOGLOBIN 9.2 GM/dL (11.7-16.9); LYMPH % 28.4 % (8-40); MCH 28.9 pg (25.7-33.7); MCHC 33.3 g/dl (32.0-35.9); MEAN CELL VOLUME 86.7 fl (80-96); MEAN PLT VOLUME 6.5 fl (7.5-11.1); MONO % 6.4 % (3.8-10.2); NEUT % 58.1 % (42.8-82.8); PLATELET COUNT 278 10^3/uL (134-434); RBC 3.18 M/mm3 (4.00-5.60); RDW 15.6 % (11.9-15.9); WHITE BLOOD COUNT 5.9 K/mm3 (4.0-10.0)
[2023-11-17 10:17] LABS: POTASSIUM 4.2 mmol/L (3.5-5.1)
[2023-11-17 10:20] LABS: CALCIUM 8.6 mg/dL (8.5-10.1)
[2023-11-17 10:21] LABS: ALBUMIN 2.7 g/dl (3.4-5.0); MAGNESIUM 2.1 mg/dL (1.8-2.4)
[2023-11-17 10:24] LABS: CREATININE 1.4 mg/dL (0.55-1.3)
[2023-11-17 10:26] LABS: BILIRUBIN,TOTAL 0.4 mg/dL (0.2-1); TOT PROT 5.7 g/dl (6.4-8.2)
[2023-11-17 16:03] VITALS: BMI 18.3
[2023-11-17 23:40] VITALS: BP 162/96; PULSE 100; TEMP 97.5
== END 2023-11-18 | disposition home health service (06) | DRG 699 ==
LOC: JER 02:55 → JERBED 06:21 → J8W 11-16 11:40
PROVIDERS: ADMIT Internal Medicine; ATTEND Nurse Practitioner Acute Care
DX: T83.518A Infection and inflammatory reaction due to other urinary catheter, initial encounter (principal); E44.0 Moderate protein-calorie malnutrition; N39.0 Urinary tract infection, site not specified; I50.22 Chronic systolic (congestive) heart failure; I13.0 Hypertensive heart and chronic kidney disease with heart failure and stage 1 through stage 4 chronic kidney disease, or unspecified chronic kidney disease; R64 Cachexia; Z68.1 Body mass index [BMI] 19.9 or less, adult; E86.0 Dehydration; R19.7 Diarrhea, unspecified; J44.9 Chronic obstructive pulmonary disease, unspecified; N18.30 Chronic kidney disease, stage 3 unspecified; N40.0 Benign prostatic hyperplasia without lower urinary tract symptoms; N31.9 Neuromuscular dysfunction of bladder, unspecified; I48.0 Paroxysmal atrial fibrillation; Y83.9 Surgical procedure, unspecified as the cause of abnormal reaction of the patient, or of later complication, without mention of misadventure at the time of the procedure
CPT/HCPCS: 36415; 80053; 81003; 83735; 84100; 85025; 85027; 87040; 87086; 87186; 93005; 93010; 97116-GP; 97161-GP; 99285-25

== ENCOUNTER 2024-01-30 15:38 | Inpatient (IN) | payer OTHER ==
[2024-01-30] MEDS ORDERED: ACETAMINOPHEN INJECTION 100 ML ONE (17:01)
[2024-01-30 17:17] LABS: HEMATOCRIT 32.5 % (35.4-49); HEMOGLOBIN 10.5 GM/dL (11.7-16.9); MCHC 32.3 g/dl (32.0-35.9); MEAN CELL VOLUME 86.7 fl (80-96); PLATELET COUNT 280 10^3/uL (134-434); RBC 3.74 M/mm3 (4.00-5.60); RDW 15.4 % (11.9-15.9); WHITE BLOOD COUNT 13.6 K/mm3 (4.0-10.0)
[2024-01-30] MEDS: ACETAMINOPHEN 1000 MG/100 ML BAG IVPB ONE (17:19)
[2024-01-30 17:30] LABS: POTASSIUM 4.2 mmol/L (3.5-5.1)
[2024-01-30 17:31] LABS: ALBUMIN 2.9 g/dl (3.4-5.0); CALCIUM 8.7 mg/dL (8.5-10.1)
[2024-01-30 17:32] LABS: MAGNESIUM 1.8 mg/dL (1.8-2.4)
[2024-01-30 17:33] LABS: BLOOD UREA NITROGEN 33.3 mg/dL (7-18)
[2024-01-30 17:35] LABS: CREATININE 1.4 mg/dL (0.55-1.3)
[2024-01-30 17:37] LABS: BILIRUBIN,TOTAL 0.3 mg/dL (0.2-1); TOT PROT 6.4 g/dl (6.4-8.2)
[2024-01-30 17:39] LABS: N-TERMINAL BNP 1421.5 pg/ml (5-450)
[2024-01-30 18:45] LABS: ANISOCYTOSIS 2+; MACROCYTOSIS 0; OVALOCYTE 2+
[2024-01-30 21:55] LABS: EPI CELLS 0 /uL (0-25.1); HYALINE CASTS 0 /uL (0-3.1); PH,URINE 5.5 (5.0-8.0); URINE APPEARANCE CLOUDY; URINE BACTERIA 6419 /uL (0-1359); URINE BILIRUBIN NEGATIVE (NEGATIVE); URINE COLOR YELLOW; URINE GLUCOSE (UA) NEGATIVE (NEGATIVE); URINE KETONE NEGATIVE (NEGATIVE); URINE LEUK ESTERASE 3+ (NEGATIVE); URINE NITRITE NEGATIVE (NEGATIVE); URINE PROTEIN NEGATIVE (NEGATIVE); URINE RBC 30 /uL (0-23.9); URINE UROBILINOGEN 0.2 mg/dL (0.2-1.0); URINE WBC 1615 /uL (0-25.8)
[2024-01-30] MEDS: LACTATED RINGERS SOLUTION 1000 ML INFUS.BAG IV ONE (22:10)
[2024-01-30] MEDS ORDERED: PIPERACILLIN/TAZOB 4.5 GM 4.5 GM/100 ML BAG IVPB ONE (22:44)
[2024-01-30] MEDS: PIPERACILLIN/TAZOB 4.5 GM 4.5 GM in DEXTROSE 5%-WATER 100 ML IVPB ONE (23:14)
[2024-01-31] MEDS: MEROPENEM-0.9% SODIUM CHLORIDE 1 GM/50 ML BAG IVPB SCH ×2 (02:45→21:37)
[2024-01-31] MEDS ORDERED: ACETAMINOPHEN INJECTION 100 ML ONE (03:16)
[2024-01-31] MEDS ORDERED: LIDOCAINE 4% PATCH TP ONE (03:16)
[2024-01-31] MEDS ORDERED: LINEZOLID 600 MG PREMIX BAG 600 MG/300 ML BAG IVPB ONE (03:16)
[2024-01-31] MEDS: ACETAMINOPHEN 1000 MG/100 ML BAG IVPB PRN (03:30)
[2024-01-31] MEDS: LIDOCAINE 4% PATCH TP ONE (03:31)
[2024-01-31] MEDS: LINEZOLID 600 MG PREMIX BAG 600 MG/300 ML BAG IVPB SCH ×2 (03:49→23:00)
[2024-01-31] MEDS ORDERED: HEPARIN NA (PORCINE) 5,000 UNITS/ML 1ML VIAL ONE (04:49)
[2024-01-31] MEDS ORDERED: POLYETHYLENE GLYCOL (HEALTHYLAX) 3350 17 GM PACKET ONE (04:49)
[2024-01-31] MEDS: HEPARIN NA (PORCINE) 5,000 UNITS/ML 1ML VIAL SQ SCH (05:02)
[2024-01-31] MEDS: POLYETHYLENE GLYCOL (HEALTHYLAX) 3350 17 GM PACKET PO SCH (05:02)
[2024-01-31 06:19] LABS: HEMATOCRIT 27.5 % (35.4-49); HEMOGLOBIN 9.2 GM/dL (11.7-16.9); MCH 28.6 pg (25.7-33.7); MCHC 33.4 g/dl (32.0-35.9); MEAN CELL VOLUME 85.7 fl (80-96); MEAN PLT VOLUME 6.1 fl (7.5-11.1); PLATELET COUNT 257 10^3/uL (134-434); RBC 3.21 M/mm3 (4.00-5.60); RDW 15.6 % (11.9-15.9)
[2024-01-31 06:38] LABS: POTASSIUM 4.2 mmol/L (3.5-5.1)
[2024-01-31 06:43] LABS: ALBUMIN 2.6 g/dl (3.4-5.0); CALCIUM 8.6 mg/dL (8.5-10.1)
[2024-01-31 06:44] LABS: BLOOD UREA NITROGEN 28.7 mg/dL (7-18)
[2024-01-31 06:46] LABS: PHOSPHOROUS 3.5 mg/dL (2.5-4.9)
[2024-01-31 06:47] LABS: CREATININE 1.4 mg/dL (0.55-1.3)
[2024-01-31 06:48] LABS: BILIRUBIN,TOTAL 0.4 mg/dL (0.2-1); TOT PROT 5.9 g/dl (6.4-8.2)
[2024-01-31] MEDS: PANTOPRAZOLE 40 MG TABLET PO SCH (10:26)
[2024-01-31] MEDS: FUROSEMIDE 20 MG TABLET (FP) PO SCH (10:26)
[2024-01-31] MEDS: metoPROLOL SUCCINATE 25 MG TAB.SR.24H (FP) PO SCH (10:26)
[2024-01-31] MEDS: TAMSULOSIN HCL 0.4 MG CAP PO SCH (10:27)
[2024-01-31] MEDS: LACTOBACILLUS ACIDOPHILUS 1 TABLET PO SCH (10:27)
[2024-01-31] MEDS: FINASTERIDE 5 MG TABLET (FP) PO SCH (10:27)
[2024-01-31] MEDS: ASPIRIN COATED 81 MG TABLET.EC PO SCH (10:27)
[2024-01-31] MEDS: LISINOPRIL 5 MG TABLET PO SCH (10:29)
[2024-01-31] MEDS: PATIENT'S OWN MEDICATION (NON-FORMULARY) (Methenamine Hippurate [Hiprex] 1 GM Tablet) PO SCH (10:48)
[2024-01-31] MEDS: LIDOCAINE PATCH REMOVAL MC SCH (21:52)
[2024-01-31] MEDS ORDERED: MEROPENEM-0.9% SODIUM CHLORIDE 1 GM/50 ML BAG IVPB SCH (22:00)
[2024-01-31] MEDS ORDERED: LINEZOLID 600 MG PREMIX BAG 600 MG/300 ML BAG IVPB SCH (22:00)
[2024-02-01 06:49] LABS: BASO % 0.4 % (0-2.0); EOS % 3.2 % (0-4.5); HEMATOCRIT 29.4 % (35.4-49); HEMOGLOBIN 9.8 GM/dL (11.7-16.9); LYMPH % 14.9 % (8-40); MCH 28.5 pg (25.7-33.7); MCHC 33.3 g/dl (32.0-35.9); MEAN CELL VOLUME 85.6 fl (80-96); MEAN PLT VOLUME 6.5 fl (7.5-11.1); MONO % 7.4 % (3.8-10.2); NEUT % 74.1 % (42.8-82.8); PLATELET COUNT 292 10^3/uL (134-434); RBC 3.44 M/mm3 (4.00-5.60); RDW 15.6 % (11.9-15.9); WHITE BLOOD COUNT 7.8 K/mm3 (4.0-10.0)
[2024-02-01 07:01] LABS: POTASSIUM 4.2 mmol/L (3.5-5.1)
[2024-02-01 07:07] LABS: ALBUMIN 2.7 g/dl (3.4-5.0); CALCIUM 8.8 mg/dL (8.5-10.1)
[2024-02-01 07:08] LABS: BLOOD UREA NITROGEN 25.2 mg/dL (7-18)
[2024-02-01 07:12] LABS: BILIRUBIN,TOTAL 0.3 mg/dL (0.2-1); CREATININE 1.4 mg/dL (0.55-1.3)
[2024-02-01] MEDS: MEROPENEM-0.9% SODIUM CHLORIDE 1 GM/50 ML BAG IVPB SCH (17:31)
[2024-02-01] MEDS ORDERED: POLYETHYLENE GLYCOL (HEALTHYLAX) 3350 17 GM PACKET PO SCH (18:45)
[2024-02-01] MEDS ORDERED: ACETAMINOPHEN 325 MG TABLET (FP) PO PRN (18:50)
[2024-02-01] MEDS ORDERED: LIDOCAINE PATCH REMOVAL MC SCH (22:00)
[2024-02-02] MEDS: LIDOCAINE 4% PATCH TP SCH (09:55)
[2024-02-02] MEDS: POLYETHYLENE GLYCOL (HEALTHYLAX) 3350 17 GM PACKET PO SCH (09:55)
[2024-02-02] MEDS ORDERED: LIDOCAINE 4% PATCH TP PRN (19:58)
[2024-02-02] MEDS: LIDOCAINE PATCH REMOVAL MC SCH (22:19)
[2024-02-03 06:49] LABS: BASO % 0.6 % (0-2.0); EOS % 4.8 % (0-4.5); HEMOGLOBIN 9.3 GM/dL (11.7-16.9); LYMPH % 19.6 % (8-40); MCH 28.7 pg (25.7-33.7); MCHC 33.3 g/dl (32.0-35.9); MEAN CELL VOLUME 86.1 fl (80-96); MEAN PLT VOLUME 6.5 fl (7.5-11.1); MONO % 5.9 % (3.8-10.2); NEUT % 69.1 % (42.8-82.8); PLATELET COUNT 292 10^3/uL (134-434); RBC 3.26 M/mm3 (4.00-5.60); RDW 15.4 % (11.9-15.9); WHITE BLOOD COUNT 8.5 K/mm3 (4.0-10.0)
[2024-02-03 07:55] LABS: POTASSIUM 4.3 mmol/L (3.5-5.1)
[2024-02-03 07:58] LABS: ALBUMIN 2.5 g/dl (3.4-5.0); BLOOD UREA NITROGEN 36.2 mg/dL (7-18); CALCIUM 8.7 mg/dL (8.5-10.1)
[2024-02-03 08:01] LABS: CREATININE 1.4 mg/dL (0.55-1.3)
[2024-02-03 08:03] LABS: BILIRUBIN,TOTAL 0.4 mg/dL (0.2-1)
[2024-02-04 08:18] LABS: BASO % 0.7 % (0-2.0); EOS % 4.1 % (0-4.5); HEMOGLOBIN 9.9 GM/dL (11.7-16.9); LYMPH % 17.6 % (8-40); MCH 28.5 pg (25.7-33.7); MEAN CELL VOLUME 86.5 fl (80-96); MEAN PLT VOLUME 6.5 fl (7.5-11.1); MONO % 7.1 % (3.8-10.2); NEUT % 70.5 % (42.8-82.8); PLATELET COUNT 298 10^3/uL (134-434); RBC 3.47 M/mm3 (4.00-5.60); RDW 15.2 % (11.9-15.9); WHITE BLOOD COUNT 8.3 K/mm3 (4.0-10.0)
[2024-02-04 08:25] LABS: POTASSIUM 4.7 mmol/L (3.5-5.1)
[2024-02-04 08:27] LABS: ALBUMIN 2.6 g/dl (3.4-5.0); BLOOD UREA NITROGEN 34.2 mg/dL (7-18); CALCIUM 8.9 mg/dL (8.5-10.1)
[2024-02-04 08:31] LABS: CREATININE 1.3 mg/dL (0.55-1.3)
[2024-02-04 08:32] LABS: BILIRUBIN,TOTAL 0.4 mg/dL (0.2-1); TOT PROT 6.1 g/dl (6.4-8.2)
[2024-02-05] MEDS ORDERED: ACETAMINOPHEN 325 MG TABLET (FP) PO PRN (17:42)
[2024-02-05] MEDS: MEROPENEM-0.9% SODIUM CHLORIDE 1 GM/50 ML BAG IVPB SCH (18:30)
[2024-02-05] MEDS: LIDOCAINE PATCH REMOVAL MC SCH (18:30)
[2024-02-05] MEDS ORDERED: METHENAMINE HIPPURATE 1 GM PO SCH (22:00)
[2024-02-05] MEDS: HEPARIN NA (PORCINE) 5,000 UNITS/ML 1ML VIAL SQ SCH (22:03)
[2024-02-06] MEDS: POLYETHYLENE GLYCOL (HEALTHYLAX) 3350 17 GM PACKET PO SCH (09:09)
[2024-02-06] MEDS: TAMSULOSIN HCL 0.4 MG CAP PO SCH (09:10)
[2024-02-06] MEDS: ASPIRIN COATED 81 MG TABLET.EC PO SCH (09:10)
[2024-02-06] MEDS: LACTOBACILLUS ACIDOPHILUS 1 TABLET PO SCH (09:10)
[2024-02-06] MEDS: FUROSEMIDE 20 MG TABLET (FP) PO SCH (09:10)
[2024-02-06] MEDS: FINASTERIDE 5 MG TABLET (FP) PO SCH (09:10)
[2024-02-06] MEDS: PANTOPRAZOLE 40 MG TABLET PO SCH (09:11)
[2024-02-06] MEDS: LISINOPRIL 5 MG TABLET PO SCH (09:16)
[2024-02-06] MEDS: metoPROLOL SUCCINATE 25 MG TAB.SR.24H (FP) PO SCH (09:43)
[2024-02-06 14:28] VITALS: RESP 18
[2024-02-06 23:55] VITALS: BMI 18.7
[2024-02-08 03:11] VITALS: BP 133/71; PULSE 93; TEMP 97.9
== END 2024-02-08 03:15 | disposition home or self-care (01) | DRG 699 ==
LOC: JER 15:38 → JERBED 22:39 → J4S 01-31 06:34 → OBSVTOIN 01-31 15:12 → J6S 02-05 17:36
PROVIDERS: ATTEND Internal Medicine
DX: T83.511A Infection and inflammatory reaction due to indwelling urethral catheter, initial encounter (principal); I13.0 Hypertensive heart and chronic kidney disease with heart failure and stage 1 through stage 4 chronic kidney disease, or unspecified chronic kidney disease; I50.22 Chronic systolic (congestive) heart failure; N30.00 Acute cystitis without hematuria; I47.19 Other supraventricular tachycardia; Q24.5 Malformation of coronary vessels; Z16.12 Extended spectrum beta lactamase (ESBL) resistance; K56.41 Fecal impaction; Y83.9 Surgical procedure, unspecified as the cause of abnormal reaction of the patient, or of later complication, without mention of misadventure at the time of the procedure; D53.9 Nutritional anemia, unspecified; K76.89 Other specified diseases of liver; N18.9 Chronic kidney disease, unspecified; D63.8 Anemia in other chronic diseases classified elsewhere; R55 Syncope and collapse; N28.1 Cyst of kidney, acquired; N40.0 Benign prostatic hyperplasia without lower urinary tract symptoms; E11.42 Type 2 diabetes mellitus with diabetic polyneuropathy; B96.20 Unspecified Escherichia coli [E. coli] as the cause of diseases classified elsewhere
CPT/HCPCS: 0241U-QW; 36415; 71045-TC-FY; 71275-TC; 72050-TC-FY; 72070-TC-FY; 74174-TC; 74230-TC-FY; 76775-TC; 80053; 81003; 82550; 83690; 83735; 83880; 84100; 84484; 85025; 85027; 87040; 87086; 87186; 92611-GN; 93005; 93010; 93306-TC; 93880-TC; 97116-GP; 97161-GP; 99285-25; G0378; J0131; J1644; Q9967

== ENCOUNTER 2024-03-21 23:54 | Inpatient (IN) | payer OTHER ==
[2024-03-22 00:07] VITALS: BMI 17.9
[2024-03-22] MEDS: SODIUM CHLORIDE 0.9% 500 ML INFUS.BAG IV ONE (01:23)
[2024-03-22 01:41] LABS: HEMATOCRIT 30.4 % (35.4-49); MCH 27.7 pg (25.7-33.7); MCHC 32.9 g/dl (32.0-35.9); MEAN CELL VOLUME 84.2 fl (80-96); RBC 3.61 M/mm3 (4.00-5.60); RDW 14.9 % (11.9-15.9)
[2024-03-22 01:46] LABS: WHITE BLOOD COUNT 17.4 K/mm3 (4.0-10.0)
[2024-03-22 01:48] LABS: URINE APPEARANCE CLEAR; URINE BILIRUBIN NEGATIVE (NEGATIVE); URINE COLOR YELLOW; URINE GLUCOSE (UA) NEGATIVE (NEGATIVE); URINE KETONE TRACE (NEGATIVE); URINE LEUK ESTERASE NEGATIVE (NEGATIVE); URINE NITRITE NEGATIVE (NEGATIVE); URINE PROTEIN NEGATIVE (NEGATIVE); URINE UROBILINOGEN 0.2 mg/dL (0.2-1.0)
[2024-03-22 01:51] LABS: ALBUMIN 2.8 g/dl (3.4-5.0); BLOOD UREA NITROGEN 36.4 mg/dL (7-18); CALCIUM 8.4 mg/dL (8.5-10.1); MAGNESIUM 2.2 mg/dL (1.8-2.4)
[2024-03-22 01:54] LABS: CREATININE 1.3 mg/dL (0.55-1.3)
[2024-03-22 01:56] LABS: BILIRUBIN,TOTAL 0.4 mg/dL (0.2-1); TOT PROT 6.5 g/dl (6.4-8.2)
[2024-03-22] MEDS ORDERED: CEFTRIAXONE 1 G/50 ML PREMIX 50 ML IVPB ONE (05:32)
[2024-03-22] MEDS: CEFTRIAXONE 1 GM in DEXTROSE 5%-WATER - 100 ML IVPB ONE (05:41)
[2024-03-22] MEDS ORDERED: LISINOPRIL 20 MG TABLET ONE (09:53)
[2024-03-22] MEDS ORDERED: LISINOPRIL 5 MG TABLET ONE ×2 (09:53→10:31)
[2024-03-22] MEDS ORDERED: TAMSULOSIN HCL 0.4 MG CAP ONE (09:54)
[2024-03-22] MEDS ORDERED: ASPIRIN 81 MG CHEWABLE TABLETS ONE (09:54)
[2024-03-22] MEDS ORDERED: metoPROLOL SUCCINATE 25 MG TAB.SR.24H (FP) PO ONE (09:54)
[2024-03-22] MEDS: ASPIRIN COATED 81 MG TABLET.EC PO SCH (10:11)
[2024-03-22] MEDS: TAMSULOSIN HCL 0.4 MG CAP PO SCH (10:11)
[2024-03-22] MEDS: FINASTERIDE 5 MG TABLET (FP) PO SCH (10:11)
[2024-03-22] MEDS: metoPROLOL SUCCINATE 25 MG TAB.SR.24H (FP) PO SCH (10:11)
[2024-03-22] MEDS: LISINOPRIL 5 MG TABLET PO SCH (10:11)
[2024-03-23] MEDS: ENOXAPARIN NA (PORCINE) 40 MG/0.4 ML DISP.SYRIN SQ SCH (09:58)
[2024-03-23] MEDS: POLYETHYLENE GLYCOL (HEALTHYLAX) 3350 17 GM PACKET PO SCH (12:55)
[2024-03-23] MEDS: SODIUM CHLORIDE 1,000 ML IV SCH (12:55)
[2024-03-23] MEDS: SENNOSIDES 8.8 MG/5 ML SYRUP PO SCH (22:41)
[2024-03-24] MEDS: PIPERACILLIN/TAZOB 3.375 GM 3.375 GM in DEXTROSE 5%-WATER - 50 ML IVPB SCH (09:20)
[2024-03-24 10:20] LABS: BASO % 0.8 % (0-2.0); EOS % 6.1 % (0-4.5); HEMATOCRIT 23.3 % (35.4-49); HEMOGLOBIN 7.7 GM/dL (11.7-16.9); LYMPH % 22.1 % (8-40); MCH 27.8 pg (25.7-33.7); MCHC 33.1 g/dl (32.0-35.9); MEAN PLT VOLUME 6.4 fl (7.5-11.1); MONO % 5.7 % (3.8-10.2); NEUT % 65.3 % (42.8-82.8); PLATELET COUNT 258 10^3/uL (134-434); RBC 2.77 M/mm3 (4.00-5.60); RDW 14.7 % (11.9-15.9); WHITE BLOOD COUNT 5.7 K/mm3 (4.0-10.0)
[2024-03-24] MEDS: VANCOMYCIN/WATER FOR INJ (PEG) 1,000 MG/200 ML BAG IVPB ONE (10:35)
[2024-03-24] MEDS: FUROSEMIDE 20 MG TABLET (FP) PO SCH (10:35)
[2024-03-24] MEDS ORDERED: IMIPENEM/CILASTATIN SODIUM 500 MG in SODIUM CHLORIDE 100 ML IVPB SCH (13:00)
[2024-03-24 14:02] VITALS: RESP 18
[2024-03-24] MEDS: CEFTRIAXONE 1 G/50 ML PREMIX 50 ML IVPB SCH (15:34)
[2024-03-25 09:08] LABS: BASO % 1.2 % (0-2.0); EOS % 6.6 % (0-4.5); HEMATOCRIT 24.5 % (35.4-49); LYMPH % 21.3 % (8-40); MCH 27.5 pg (25.7-33.7); MCHC 32.7 g/dl (32.0-35.9); MEAN PLT VOLUME 6.5 fl (7.5-11.1); NEUT % 63.9 % (42.8-82.8); PLATELET COUNT 295 10^3/uL (134-434); RBC 2.92 M/mm3 (4.00-5.60); RDW 14.6 % (11.9-15.9); WHITE BLOOD COUNT 6.2 K/mm3 (4.0-10.0)
[2024-03-25 09:30] LABS: POTASSIUM 3.9 mmol/L (3.5-5.1)
[2024-03-25 09:42] LABS: BLOOD UREA NITROGEN 24.7 mg/dL (7-18)
[2024-03-25 09:46] LABS: CALCIUM 8.7 mg/dL (8.5-10.1); CREATININE 1.1 mg/dL (0.55-1.3)
[2024-03-26 09:08] LABS: BASO % 0.8 % (0-2.0); EOS % 6.3 % (0-4.5); HEMATOCRIT 23.4 % (35.4-49); HEMOGLOBIN 8.1 GM/dL (11.7-16.9); LYMPH % 23.9 % (8-40); MCH 28.5 pg (25.7-33.7); MCHC 34.5 g/dl (32.0-35.9); MEAN CELL VOLUME 82.7 fl (80-96); MEAN PLT VOLUME 6.5 fl (7.5-11.1); MONO % 7.5 % (3.8-10.2); NEUT % 61.5 % (42.8-82.8); PLATELET COUNT 269 10^3/uL (134-434); RBC 2.83 M/mm3 (4.00-5.60); RDW 14.8 % (11.9-15.9); WHITE BLOOD COUNT 5.7 K/mm3 (4.0-10.0)
[2024-03-26 09:29] LABS: POTASSIUM 3.9 mmol/L (3.5-5.1)
[2024-03-26 09:34] LABS: CALCIUM 8.3 mg/dL (8.5-10.1)
[2024-03-26 09:35] LABS: ALBUMIN 2.3 g/dl (3.4-5.0); BLOOD UREA NITROGEN 25.5 mg/dL (7-18); MAGNESIUM 1.9 mg/dL (1.8-2.4)
[2024-03-26 09:37] LABS: BILIRUBIN,TOTAL 0.2 mg/dL (0.2-1)
[2024-03-26 09:39] LABS: TOT PROT 5.4 g/dl (6.4-8.2)
[2024-03-26 09:44] LABS: CREATININE 1.1 mg/dL (0.55-1.3)
[2024-03-26] MEDS: GENTAMICIN INJECTION 300 MG in DEXTROSE 5%-WATER - 250 ML IVPB ONE (23:10)
[2024-03-27 08:41] LABS: BASO % 0.9 % (0-2.0); EOS % 6.1 % (0-4.5); HEMOGLOBIN 8.1 GM/dL (11.7-16.9); LYMPH % 26.3 % (8-40); MCH 27.2 pg (25.7-33.7); MCHC 32.4 g/dl (32.0-35.9); MEAN CELL VOLUME 83.9 fl (80-96); MEAN PLT VOLUME 6.5 fl (7.5-11.1); MONO % 8.5 % (3.8-10.2); NEUT % 58.2 % (42.8-82.8); PLATELET COUNT 277 10^3/uL (134-434); RBC 2.98 M/mm3 (4.00-5.60); RDW 14.4 % (11.9-15.9)
[2024-03-27 09:10] LABS: CALCIUM 8.5 mg/dL (8.5-10.1)
[2024-03-27 09:11] LABS: ALBUMIN 2.3 g/dl (3.4-5.0)
[2024-03-27 09:13] LABS: CREATININE 1.1 mg/dL (0.55-1.3)
[2024-03-27 09:15] LABS: BILIRUBIN,TOTAL 0.3 mg/dL (0.2-1); TOT PROT 5.5 g/dl (6.4-8.2)
[2024-03-27 15:47] VITALS: BP 113/61; PULSE 88; TEMP 98.6
== END 2024-03-27 20:15 | disposition home or self-care (01) | DRG 698 ==
LOC: JER 23:54 → JERBED 03-22 05:14 → OBSVTOIN 03-22 06:09 → J8W 03-22 17:30
PROVIDERS: ADMIT Internal Medicine; ATTEND Nurse Practitioner Family
DX: T83.511A Infection and inflammatory reaction due to indwelling urethral catheter, initial encounter (principal); E43 Unspecified severe protein-calorie malnutrition; I13.0 Hypertensive heart and chronic kidney disease with heart failure and stage 1 through stage 4 chronic kidney disease, or unspecified chronic kidney disease; I50.22 Chronic systolic (congestive) heart failure; Z68.1 Body mass index [BMI] 19.9 or less, adult; D72.829 Elevated white blood cell count, unspecified; N31.9 Neuromuscular dysfunction of bladder, unspecified; E86.0 Dehydration; N39.0 Urinary tract infection, site not specified; M54.9 Dorsalgia, unspecified; E78.5 Hyperlipidemia, unspecified; J44.9 Chronic obstructive pulmonary disease, unspecified; N18.9 Chronic kidney disease, unspecified; N40.0 Benign prostatic hyperplasia without lower urinary tract symptoms; J20.9 Acute bronchitis, unspecified; Y84.6 Urinary catheterization as the cause of abnormal reaction of the patient, or of later complication, without mention of misadventure at the time of the procedure; Y92.89 Other specified places as the place of occurrence of the external cause
CPT/HCPCS: 0241U-QW; 36415; 71045-TC-FY; 71250-TC; 74176-TC; 80048; 80053; 81003; 83735; 84484; 85025; 87086; 87186; 93005; 93010; 97116-GP; 99285-25; G0378

== ENCOUNTER 2024-08-06 03:36 | Inpatient (IN) | payer OTHER ==
[2024-08-06] MEDS ORDERED: LIDOCAINE HCL 2% JELLY 6 ML TP ONE (04:26)
[2024-08-06 04:39] LABS: ABSOLUTE IMMATURE GRANULOCYTES 0.03 x10^3/uL (0.0-0.031); BASOPHILS # 0.04 x10^3/uL (0.01-0.08); EOSINOPHIL % 3.2 % (0.8-7.0); EOSINOPHILS # 0.28 x10^3/uL (0.04-0.54); HEMATOCRIT 26.8 % (40.1-51.0); HEMOGLOBIN 8.6 g/dL (13.7-17.5); MCHC 32.1 g/dl (32.3-36.5); MEAN CELL VOLUME 85.9 fl (79.0-92.2); MEAN PLT VOLUME 9.2 fl (9.4-12.4); MONOCYTE # 0.57 x10^3/uL (0.30-0.82); MONOCYTE % 6.6 % (5.3-12.2); PLATELET COUNT 292 x10^3/uL (163-337); RDW 15.6 % (12.2-16.6)
[2024-08-06] MEDS: SODIUM CHLORIDE 0.9% 500 ML INFUS.BAG IV ONE (04:47)
[2024-08-06 04:53] LABS: POTASSIUM 4.6 mmol/L (3.5-5.1)
[2024-08-06 04:55] LABS: CALCIUM 9.6 mg/dL (8.5-10.1)
[2024-08-06 04:56] LABS: BLOOD UREA NITROGEN 37.1 mg/dL (7-18)
[2024-08-06 04:59] LABS: CREATININE 1.2 mg/dL (0.55-1.3)
[2024-08-06 05:00] LABS: BILIRUBIN,TOTAL 0.5 mg/dL (0.2-1); TOT PROT 6.9 g/dl (6.4-8.2)
[2024-08-06 06:22] LABS: EPI CELLS 3 /uL (0-25.1); HYALINE CASTS 1 /uL (0-3.1); PH,URINE 5.5 (5.0-8.0); URINE APPEARANCE CLOUDY; URINE BACTERIA 420 /uL (0-1359); URINE BILIRUBIN NEGATIVE (NEGATIVE); URINE COLOR YELLOW; URINE GLUCOSE (UA) NEGATIVE (NEGATIVE); URINE KETONE NEGATIVE (NEGATIVE); URINE LEUK ESTERASE 2+ (NEGATIVE); URINE NITRITE NEGATIVE (NEGATIVE); URINE PROTEIN 2+ (NEGATIVE); URINE RBC 1809 /uL (0-23.9); URINE UROBILINOGEN 0.2 mg/dL (0.2-1.0); URINE WBC 827 /uL (0-25.8)
[2024-08-06] MEDS ORDERED: MEROPENEM-0.9% SODIUM CHLORIDE 1 GM/50 ML BAG IVPB ONE (06:34)
[2024-08-06] MEDS ORDERED: SCOPOLAMINE HYDROBROMIDE 1 PATCH PATCH.TD72 ONE (06:42)
[2024-08-06] MEDS: MEROPENEM 1 GM in DEXTROSE 5%-WATER 100 ML IVPB ONE (06:50)
[2024-08-06] MEDS: metoPROLOL SUCCINATE 25 MG TAB.SR.24H (FP) PO SCH (10:55)
[2024-08-06] MEDS: MULTIVITAMINS (DAILY MVI) TABLET (FP) PO SCH (10:55)
[2024-08-06] MEDS: TAMSULOSIN HCL 0.4 MG CAP PO SCH (10:55)
[2024-08-06] MEDS: FINASTERIDE 5 MG TABLET (FP) PO SCH (10:55)
[2024-08-06] MEDS: MEROPENEM-0.9% SODIUM CHLORIDE 500 MG/50 ML BAG IVPB SCH (11:18)
[2024-08-06] MEDS: CEFTRIAXONE 1 G/50 ML PREMIX 50 ML IVPB SCH (13:10)
[2024-08-06] MEDS ORDERED: MEROPENEM 500 MG in DEXTROSE 5%-WATER 100 ML IVPB SCH (14:00)
[2024-08-06] MEDS: SODIUM CHLORIDE 1,000 ML IV SCH (17:55)
[2024-08-07 08:33] LABS: ABSOLUTE IMMATURE GRANULOCYTES 0.06 x10^3/uL (0.0-0.031); BASOPHILS # 0.04 x10^3/uL (0.01-0.08); EOSINOPHIL % 3.2 % (0.8-7.0); EOSINOPHILS # 0.24 x10^3/uL (0.04-0.54); HEMATOCRIT 19.3 % (40.1-51.0); MCHC 31.1 g/dl (32.3-36.5); MEAN CELL VOLUME 85.8 fl (79.0-92.2); MEAN PLT VOLUME 9.1 fl (9.4-12.4); MONOCYTE # 0.76 x10^3/uL (0.30-0.82); PLATELET COUNT 202 x10^3/uL (163-337); RDW 15.6 % (12.2-16.6)
[2024-08-07 08:34] LABS: ABSOLUTE IMMATURE GRANULOCYTES 0.04 x10^3/uL (0.0-0.031); BASOPHILS # 0.05 x10^3/uL (0.01-0.08); EOSINOPHILS # 0.24 x10^3/uL (0.04-0.54); HEMOGLOBIN 6.1 g/dL (13.7-17.5); MCHC 32.1 g/dl (32.3-36.5); MEAN CELL VOLUME 85.2 fl (79.0-92.2); MONOCYTE # 0.77 x10^3/uL (0.30-0.82); MONOCYTE % 9.5 % (5.3-12.2); PLATELET COUNT 207 x10^3/uL (163-337); RDW 15.5 % (12.2-16.6)
[2024-08-07 08:39] LABS: INR 1.26 (0.83-1.09); PROTHROMBIN TIME (PATIENT) 13.9 SEC (9.7-13.0)
[2024-08-07 09:01] LABS: POTASSIUM 3.9 mmol/L (3.5-5.1)
[2024-08-07 09:08] LABS: BLOOD UREA NITROGEN 30.5 mg/dL (7-18)
[2024-08-07 09:11] LABS: PHOSPHOROUS 2.7 mg/dL (2.5-4.9)
[2024-08-07 09:12] LABS: BILIRUBIN,TOTAL 0.6 mg/dL (0.2-1)
[2024-08-07 09:13] LABS: CALCIUM 8.4 mg/dL (8.5-10.1); TOT PROT 4.8 g/dl (6.4-8.2)
[2024-08-07 09:14] LABS: MAGNESIUM 1.6 mg/dL (1.8-2.4)
[2024-08-07] MEDS: SODIUM CHLORIDE 1,000 ML IV SCH (09:20)
[2024-08-07] MEDS: ASPIRIN COATED 81 MG TABLET.EC PO SCH (09:20)
[2024-08-07] MEDS: SODIUM CHLORIDE 500 ML IV SCH (15:15)
[2024-08-07] MEDS: FUROSEMIDE 40 MG/4 ML INJECTABLE VIAL IVPUSH ONE (19:52)
[2024-08-07] MEDS: metoPROLOL SUCCINATE 25 MG TAB.SR.24H (FP) PO SCH (22:05)
[2024-08-08 07:16] LABS: ABSOLUTE IMMATURE GRANULOCYTES 0.04 x10^3/uL (0.0-0.031); BASOPHILS # 0.04 x10^3/uL (0.01-0.08); EOSINOPHIL % 3.9 % (0.8-7.0); EOSINOPHILS # 0.32 x10^3/uL (0.04-0.54); HEMATOCRIT 25.2 % (40.1-51.0); HEMOGLOBIN 8.5 g/dL (13.7-17.5); MCHC 33.7 g/dl (32.3-36.5); MEAN CELL VOLUME 83.7 fl (79.0-92.2); MONOCYTE # 0.86 x10^3/uL (0.30-0.82); MONOCYTE % 10.4 % (5.3-12.2); PLATELET COUNT 215 x10^3/uL (163-337); RDW 14.5 % (12.2-16.6)
[2024-08-08 07:33] LABS: POTASSIUM 4.2 mmol/L (3.5-5.1)
[2024-08-08 07:38] LABS: ALBUMIN 2.1 g/dl (3.4-5.0); BLOOD UREA NITROGEN 32.5 mg/dL (7-18); CALCIUM 8.1 mg/dL (8.5-10.1); MAGNESIUM 1.8 mg/dL (1.8-2.4)
[2024-08-08 07:41] LABS: CREATININE 1.1 mg/dL (0.55-1.3)
[2024-08-08 07:43] LABS: BILIRUBIN,TOTAL 0.7 mg/dL (0.2-1)
[2024-08-08] MEDS ORDERED: ASPIRIN COATED 81 MG TABLET.EC PO SCH (10:00)
[2024-08-08] MEDS: CEFTRIAXONE 1 G/50 ML PREMIX 50 ML IVPB SCH (10:51)
[2024-08-08] MEDS: TAMSULOSIN HCL 0.4 MG CAP PO SCH (10:52)
[2024-08-08] MEDS: MULTIVITAMINS (DAILY MVI) TABLET (FP) PO SCH (10:52)
[2024-08-08] MEDS: ASCORBIC ACID 250 MG TABLET (FP) PO SCH (10:52)
[2024-08-08] MEDS: FINASTERIDE 5 MG TABLET (FP) PO SCH (10:52)
[2024-08-08] MEDS: PIPERACILLIN/TAZOB 3.375 GM 3.375 GM in DEXTROSE 5%-WATER - 50 ML IVPB SCH (15:04)
[2024-08-08 15:11] LABS: HEMATOCRIT 24.8 % (40.1-51.0); HEMOGLOBIN 8.3 g/dL (13.7-17.5); MCHC 33.5 g/dl (32.3-36.5); MEAN CELL VOLUME 84.6 fl (79.0-92.2); MEAN PLT VOLUME 9.1 fl (9.4-12.4); PLATELET COUNT 212 x10^3/uL (163-337); RDW 14.8 % (12.2-16.6)
[2024-08-08] MEDS ORDERED: PIPERACILLIN/TAZOB 3.375 GM 50 ML IVPB SCH (18:00)
[2024-08-08] MEDS: MAGNESIUM OXIDE 400 MG TABLET (FP) PO ONE (18:51)
[2024-08-08] MEDS: MEROPENEM 1 GM in DEXTROSE 5%-WATER 100 ML IVPB SCH (18:51)
[2024-08-09] MEDS: ACETAMINOPHEN 500 MG TABLET (FP) PO ONE (01:56)
[2024-08-09 09:10] LABS: ABSOLUTE IMMATURE GRANULOCYTES 0.02 x10^3/uL (0.0-0.031); BASOPHILS # 0.04 x10^3/uL (0.01-0.08); EOSINOPHIL % 6.3 % (0.8-7.0); EOSINOPHILS # 0.44 x10^3/uL (0.04-0.54); HEMATOCRIT 23.6 % (40.1-51.0); HEMOGLOBIN 7.8 g/dL (13.7-17.5); MCHC 33.1 g/dl (32.3-36.5); MEAN CELL VOLUME 86.1 fl (79.0-92.2); MEAN PLT VOLUME 9.3 fl (9.4-12.4); MONOCYTE # 0.64 x10^3/uL (0.30-0.82); MONOCYTE % 9.2 % (5.3-12.2); PLATELET COUNT 210 x10^3/uL (163-337); RDW 14.7 % (12.2-16.6)
[2024-08-09] MEDS: ACETAMINOPHEN 1000 MG/100 ML BAG IVPB PRN (09:13)
[2024-08-09 09:57] LABS: BLOOD UREA NITROGEN 33.3 mg/dL (7-18); CALCIUM 8.1 mg/dL (8.5-10.1); MAGNESIUM 1.9 mg/dL (1.8-2.4); POTASSIUM 3.7 mmol/L (3.5-5.1)
[2024-08-09 09:59] LABS: CREATININE 1.1 mg/dL (0.55-1.3)
[2024-08-09 10:04] LABS: BILIRUBIN,TOTAL 1.3 mg/dL (0.2-1); TOT PROT 4.9 g/dl (6.4-8.2)
[2024-08-09 18:08] LABS: HEMATOCRIT 25.1 % (40.1-51.0); HEMOGLOBIN 8.1 g/dL (13.7-17.5); MCHC 32.3 g/dl (32.3-36.5); MEAN CELL VOLUME 86.9 fl (79.0-92.2); PLATELET COUNT 222 x10^3/uL (163-337); RDW 14.9 % (12.2-16.6)
[2024-08-10 06:40] LABS: ABSOLUTE IMMATURE GRANULOCYTES 0.03 x10^3/uL (0.0-0.031); BASOPHILS # 0.05 x10^3/uL (0.01-0.08); EOSINOPHIL % 5.9 % (0.8-7.0); EOSINOPHILS # 0.46 x10^3/uL (0.04-0.54); HEMATOCRIT 24.2 % (40.1-51.0); HEMOGLOBIN 7.9 g/dL (13.7-17.5); MCHC 32.6 g/dl (32.3-36.5); MEAN CELL VOLUME 87.1 fl (79.0-92.2); MEAN PLT VOLUME 8.9 fl (9.4-12.4); MONOCYTE # 0.53 x10^3/uL (0.30-0.82); MONOCYTE % 6.8 % (5.3-12.2); PLATELET COUNT 236 x10^3/uL (163-337); RDW 14.6 % (12.2-16.6)
[2024-08-10 07:03] LABS: POTASSIUM 4.3 mmol/L (3.5-5.1)
[2024-08-10 07:06] LABS: CALCIUM 8.4 mg/dL (8.5-10.1)
[2024-08-10 07:07] LABS: BLOOD UREA NITROGEN 28.2 mg/dL (7-18); MAGNESIUM 1.7 mg/dL (1.8-2.4)
[2024-08-10 07:11] LABS: BILIRUBIN,TOTAL 0.6 mg/dL (0.2-1)
[2024-08-10 13:47] VITALS: BMI 19.5
[2024-08-11 07:41] LABS: ABSOLUTE IMMATURE GRANULOCYTES 0.03 x10^3/uL (0.0-0.031); BASOPHILS # 0.04 x10^3/uL (0.01-0.08); EOSINOPHIL % 6.9 % (0.8-7.0); EOSINOPHILS # 0.48 x10^3/uL (0.04-0.54); HEMATOCRIT 24.4 % (40.1-51.0); MCHC 32.8 g/dl (32.3-36.5); MEAN CELL VOLUME 86.2 fl (79.0-92.2); MEAN PLT VOLUME 8.9 fl (9.4-12.4); MONOCYTE # 0.56 x10^3/uL (0.30-0.82); PLATELET COUNT 237 x10^3/uL (163-337); RDW 14.7 % (12.2-16.6)
[2024-08-11 07:42] LABS: POTASSIUM 3.9 mmol/L (3.5-5.1)
[2024-08-11 07:50] LABS: ALBUMIN 1.9 g/dl (3.4-5.0); BLOOD UREA NITROGEN 24.8 mg/dL (7-18); CALCIUM 8.1 mg/dL (8.5-10.1); MAGNESIUM 1.9 mg/dL (1.8-2.4)
[2024-08-11 07:53] LABS: CREATININE 0.9 mg/dL (0.55-1.3)
[2024-08-11 07:55] LABS: BILIRUBIN,TOTAL 0.6 mg/dL (0.2-1); TOT PROT 4.9 g/dl (6.4-8.2)
[2024-08-11] MEDS: ACETAMINOPHEN 1000 MG/100 ML BAG IVPB PRN (08:04)
[2024-08-11] MEDS: oxyCODONE HCL 5 MG TABLET PO PRN (12:13)
[2024-08-11] MEDS: ACETAMINOPHEN 1000 MG/100 ML BAG IVPB SCH (12:18)
[2024-08-12 08:24] LABS: ABSOLUTE IMMATURE GRANULOCYTES 0.03 x10^3/uL (0.0-0.031); BASOPHILS # 0.05 x10^3/uL (0.01-0.08); EOSINOPHIL % 7.4 % (0.8-7.0); EOSINOPHILS # 0.51 x10^3/uL (0.04-0.54); HEMATOCRIT 24.1 % (40.1-51.0); HEMOGLOBIN 7.8 g/dL (13.7-17.5); MCHC 32.4 g/dl (32.3-36.5); MEAN CELL VOLUME 87.6 fl (79.0-92.2); MEAN PLT VOLUME 8.7 fl (9.4-12.4); MONOCYTE # 0.59 x10^3/uL (0.30-0.82); MONOCYTE % 8.6 % (5.3-12.2); PLATELET COUNT 246 x10^3/uL (163-337); RDW 14.7 % (12.2-16.6)
[2024-08-12 08:25] LABS: POTASSIUM 4.3 mmol/L (3.5-5.1)
[2024-08-12 08:31] LABS: CALCIUM 8.4 mg/dL (8.5-10.1)
[2024-08-12 08:32] LABS: ALBUMIN 1.9 g/dl (3.4-5.0); BLOOD UREA NITROGEN 24.9 mg/dL (7-18); MAGNESIUM 1.7 mg/dL (1.8-2.4)
[2024-08-12 08:35] LABS: CREATININE 0.9 mg/dL (0.55-1.3)
[2024-08-12 08:36] LABS: BILIRUBIN,TOTAL 0.5 mg/dL (0.2-1); TOT PROT 4.7 g/dl (6.4-8.2)
[2024-08-12 11:36] VITALS: RESP 16
[2024-08-12 16:20] VITALS: BP 150/77; PULSE 111; TEMP 97.7
== END 2024-08-12 15:50 | DRG 981 ==
LOC: JER 03:36 → JERBED 06:47 → OBSVTOIN 08:00 → J6S 10:05 → J4S 08-07 10:56
PROVIDERS: ADMIT Internal Medicine
PROC: 04VK3DZ Restriction of Right Femoral Artery with Intraluminal Device, Percutaneous Approach (ICD-10-PCS; principal; 2024-08-07)
PROC: 30233N1 Transfusion of Nonautologous Red Blood Cells into Peripheral Vein, Percutaneous Approach (ICD-10-PCS; 2024-08-07)
PROC: 05HY33Z Insertion of Infusion Device into Upper Vein, Percutaneous Approach (ICD-10-PCS; 2024-08-12)
DX: S70.11XA Contusion of right thigh, initial encounter (principal); E43 Unspecified severe protein-calorie malnutrition; G93.41 Metabolic encephalopathy; T83.510A Infection and inflammatory reaction due to cystostomy catheter, initial encounter; N39.0 Urinary tract infection, site not specified; I50.22 Chronic systolic (congestive) heart failure; D62 Acute posthemorrhagic anemia; Z16.12 Extended spectrum beta lactamase (ESBL) resistance; Z68.1 Body mass index [BMI] 19.9 or less, adult; T45.515A Adverse effect of anticoagulants, initial encounter; N18.9 Chronic kidney disease, unspecified; Y83.9 Surgical procedure, unspecified as the cause of abnormal reaction of the patient, or of later complication, without mention of misadventure at the time of the procedure; Y92.89 Other specified places as the place of occurrence of the external cause; X58.XXXA Exposure to other specified factors, initial encounter; Y93.9 Activity, unspecified; Y99.9 Unspecified external cause status; B96.5 Pseudomonas (aeruginosa) (mallei) (pseudomallei) as the cause of diseases classified elsewhere; B96.20 Unspecified Escherichia coli [E. coli] as the cause of diseases classified elsewhere
CPT/HCPCS: 36415; 36430; 36569; 37244; 75635-TC; 75710-TC-FY; 76000-TC-FY; 76882-TC-RT-FY; 76937; 80053; 81003; 83735; 84100; 85025; 85027; 85610; 85730; 86850; 86900; 86901; 86922; 87040; 87086; 87186; 93005; 93010; 97161-GP; 99285-25; C1769; C1887; C1894; G0378; J0131; P9058; Q9967